=== PATIENT | female | born 1935 | race Caucasian/White ===

== ENCOUNTER 2020-07-26 11:31 | Emergency (ER) | payer MEDICARE, SELFPAY ==
--- NOTE | ~2020-07-26 | XR_ITS ---
XR hip RT 2V w AP pelvis DATE: 07/26/2020 12:45 INDICATION: Right hip pain with movement TECHNIQUE: AP pelvis. AP and lateral views of right hip COMPARISON: None FINDINGS: There is rotatory dextroscoliosis and severe degenerative disc disease of the lumbar and rupesh mbosacral spine. Moderate diffuse osteopenia. The pubic symphysis and sacroiliac joints are intact. No pelvic fracture or bone destruction is detec joseph. Hip joint spaces are symmetric and relatively preserved. No fracture, dislocation, avascular nec rosis or bone destruction of the right hip. Incidentally noted is a prominent amount fecal material in the colon. No bowel obstruction is evident . 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 UITMENT INTERN IMPRESSION: No pelvic or right hip fracture or dislocation Rotatory dextroscoliosis and severe degenerative disc disease of the lumbar spi ne
[2020-07-26 11:39] VITALS: BP 151/67; PULSE 60; RESP 18; TEMP 36.3; O2SAT 100
--- NOTE | 2020-07-26 13:04 | ED.GENADULT ---
HPI - General Adult General Chief complaint: Extremity Problem,Nontraumatic Stated complaint: right hip pain, no fall Time Seen by Provider: 07/26/20 12:26 Source: patient and family Limitations: no limitations History of Present Illness HPI narrative: Patient complaining of right buttock pain radiating to the back of the right leg. Started 1 week ago. Patient denies any trauma. Patient had history of lower back surgery. Was seen her orthopedic few weeks ago and was told that there is nothing he can offer because she have chronic degenerative joint disease. Patient been doing physical therapy once a week for the last 6 weeks. Patient been isolated at home since the beginning of the pandemic October 2019. Patient denies any fever, chills, nausea, vomiting, focal neuro deficit, urinary symptoms.. Related Data Home Medications Medication Instructions Recorded Confirmed calcium carbonate 600 mg calcium 600 mg PO DAILY 08/08/19 06/09/20 (1,500 mg) tablet multivitamin 1 tablet PO DAILY 08/08/19 06/09/20 omega-3 fatty acids 1,000 mg 1,000 mg PO BID 08/08/19 06/09/20 capsule omeprazole 20 mg capsule,delayed 20 mg PO DAILY 08/08/19 06/09/20 release timolol 0.5 % eye drops 1 drop EACH EYE Q12H 08/08/19 06/09/20 vitamin B complex 1 cap PO DAILY 08/08/19 06/09/20 vitamin E (dl, acetate) 400 unit 400 unit PO DAILY 08/08/19 06/09/20 capsule aspirin 81 mg tablet,delayed 81 mg PO DAILY 08/14/19 06/09/20 release cranberry 500 mg capsule 500 mg PO BID 08/14/19 06/09/20 latanoprost (PF) 0.005 % eye drops 1 drop EACH EYE DAILY 08/14/19 06/09/20 red yeast rice 600 mg tablet 600 mg PO DAILY 08/14/19 06/09/20 vit C 30 mg-s.quiros 250 mg-celery cap PO 08/14/19 06/09/20 seed 75 mg-grape seed extrt capsule Allergies Allergy/AdvReac Type Severity Reaction Status Date / Time gatifloxacin Allergy Severe SWELLING Verified 07/26/20 11:45 fexofenadine Allergy Mild COULDN'T Verified 07/26/20 11:45 SLEEP Sulfa (Sulfonamide Allergy Mild Unknown Verified 07/26/20 11:45 Antibiotics) Review of Systems Review of Systems: Narrative: CONSTITUTIONAL: Denies fever, chills, or sweats. EYES: Denies visual changes, redness, or discharge. ENT: Denies rhinorrhea, congestion, sore throat, or otalgia. CARDIOVASCULAR: Denies chest pain, palpitations, or edema. RESPIRATORY: Denies cough or dyspnea. GASTROINTESTINAL: Denies abdominal pain, nausea, vomiting, or diarrhea. GENITOURINARY: Denies dysuria or hematuria. SKIN: Denies rash or itching. MUSCULOSKELETAL: Mild tenderness at the center of the right buttock. NEUROLOGIC: Denies headache, numbness, or weakness. Patient was able to stand up with food service assistant and walk and steady steps with food service assistant. With some discomfort when she puts weight on the right lower extremity. PSYCHIATRIC: Denies anxiety or depression. [facility] Family History Family History Mother Patient's mother is Father Patient's father is Social History Social History Smoking status: Never smoker Second hand tobacco smoke exposure: No Alcohol intake: current Exam Narrative: Exam Narrative: General appearance: Well-developed, well-nourished Skin: Normal color Head: Normocephalic, nontraumatic Eyes: Clear conjunctiva ENT: Oropharynx normal, ears normal, nose normal Neck: Supple, nontender Chest and respiratory: Airway patent, no respiratory distress, no accessory muscle use Heart: Regular rate/rhythm Abdomen: Soft, nontender, no organomegaly, quiet bowel sounds Vascular: Normal peripheral pulses, normal capillary refill. Musculoskeletal: Mild tenderness right buttock, Neurologic: Alert and oriented ?3, DIRECTOR DERMATOLOGY is normal as tested, no gross motor deficit, positive right leg raising test
[2020-07-26] MEDS: MORPHINE SULFATE INJ (*CRX) 10 MG/ML AMP 4 MG IM (13:19)
[2020-07-26] MEDS: ONDANSETRON HCL ODT 4 MG TABLET PO (13:19)
[2020-07-26 13:25] VITALS: BP 138/79; PULSE 63; RESP 19; O2SAT 99
== END 2020-07-26 13:34 | disposition home or self-care (01) ==
PROVIDERS: Emergency Provider Emergency Medicine; PCP Internal Medicine
DX: M54.31 Sciatica, right side (principal); Z79.82 Long term (current) use of aspirin
CPT/HCPCS: 73502; 96372; 99283; A9270; J2270

== ENCOUNTER 2020-11-03 10:23 | Outpatient (CLI) | payer MEDICARE, SELFPAY ==
--- NOTE | ~2020-11-03 | XR_ITS ---
EXAMINATION: XR chest 2V DATE: 11/03/2020 10:38 INDICATION: Cough. TECHNIQUE: Frontal and lateral views of the chest were obtained. COMPARISON: Chest 2 views 10/26/2018, CT abdomen and pelvis 01/26/2019 FINDINGS: There is mild scarring at the lung apices. No pleural effusion or pneumothorax. The heart s ize is normal. There are changes of anterior fusion procedure in cervical spine. IMPRESSION: 1. Mild scarring at the lung apices. Reviewed, dictated and finalized at location A. OTECHNICIAN
== END 2020-11-03 10:24 | disposition home or self-care (01) ==
LOC: ANHIMG 10:27
PROVIDERS: PCP Internal Medicine; Visit Provider Physician Assistant
DX: R05 Cough (principal); R91.8 Other nonspecific abnormal finding of lung field
CPT/HCPCS: 71046

== ENCOUNTER 2021-02-15 13:30 | Outpatient (RCR) | payer MEDICARE, SELFPAY ==
--- NOTE | 2021-01-28 11:35 | STOPEVAL ---
Addendum entered by EVA Block 01/28/21 11:36: SPEECH THERAPY INITIAL EVALUATION: Thank you for referring Meredith España to [facility].? The patient is scheduled to be seen for therapy?1x/week for 4 weeks. Please review, sign, date and return this plan of care CHAU. Original Note: Thank you for referring Meredith España to [facility].? The patient is scheduled to be seen for therapy? ____x/week for ___ weeks. Please review, sign, date and return this plan of care CHAU. I agree with and certify that the following plan of care is medically necessary. Referring Physician Date Admitting Provider: Attending Provider: Jules Pompa MD Referring Provider: LISA Outpatient Evaluation Start: 01/26/21 13:30 Freq: Status: Active Protocol: Document 01/26/21 13:38 [email or web address] (Rec: 01/26/21 14:09 GRACIE [id number]) Therapy Assessment Status Assessment Status Assessment Status Evaluation Outpatient Past Medical History Past Medical History Source of Past Medical History Patient Cardiovascular History Hx Myocardial Infarction Yes: mild Gastrointestinal History Hx Gastroesophageal Reflux Disease Yes: takes meds Musculoskeletal History Hx Degenerative Disk Disease Yes Hx Spinal Surgery Yes: cervical surgery 2004- anterior approach Prior Level of Function Home Setting Home Type Assisted Living Facility Living Situation With Spouse Prior Swallow Level Prior Intake Method Oral Prior Diet Regular (Level 7 Diet) Prior Liquid Consistency Thin (Level 0 Diet) Pain Assessment Timing of Pain Assessment Timing of Pain Assessment Assessment Self Report Self Report Pain Level 0 Pain Score Pain Score 0: Self Report Bedside Swallow Evaluation Consistency Pureed Consistency Method of Presentation Spoon Behaviors Observed Apparently Normal Swallow Occurrence of Coughing None Vocal Quality After Swallowing Clear Swallow Palpation Results Good Swallow Initiation,Strong Laryngeal Elevation Thin Uncontrolled 1 Method of Presentation Cup Behaviors Observed Apparently Normal Swallow Occurrence of Coughing None Vocal Quality After Swallowing Clear Swallow Palpation Results Good Swallow Initiation,Strong Laryngeal Elevation Tolerance Tolerance For Swallow No Distress Alertness Awake/Safe Cooperativeness Calm,Cooperative Postural Control Moves Independently,Needs Assistance Fatigability Fatigues Easily Ability to Follow Directions Independent Recommendations Feeding Type Recommended Oral Positions Used
--- NOTE | 2021-02-15 16:17 | STOPEVAL ---
SPEECH THERAPY DISCHARGE: Thank you for referring Meredith España to [facility].? The patient was seen for 3 ST visits; she was given a HEP with which she reports performing; pt desires discharge at this time. Please review, sign, date and return this discharge CHAU. I agree with and certify that the following plan of care is medically necessary. Referring Physician Date Attending Provider: Jules Pompa MD Voice RE-Evaluation Voice History Voice History I had a headache for 2 days after our last session. Description of Daily Voice Use My is about the only person who doesn't hear me. I think my voice cuts out due to sinus drainage Intelligibility Single Word Production (% 100 Intelligibility) Sentence Level Speech (% Intelligibility 100 ) Conversational Level Speech (% 100 Intelligibility) Respiration Vowel Prolongation (seconds) 18 S:Z Ratio 1 Termination of Phrases/Sentences No Coincides with Termination of Exhalation Decrement In: Phonation No Decrement In: SQL REPORT DEVELOPER Closure No Decrement In: Articulation No Decrement In: Respiration No Phonation/Glottal Closure Cough Strong Throat Clearing Effective Hard Glottal Attack to Command Yes Vocal Hypertension on: Muscle Tension in No Neck or Face Vocal Hypertension: Strained Vocal No Quality or Hard Glottal Attack Pitch Pitch pitch is within functional limits Loudness Sustained ah in Seconds 18 Conversational Loudness (dB) 66.65 Ability to Alter Loudness in Various Yes Levels of Background Noise Ability to Use Contrastive Stress in Yes Phrases and Sentences Voice Quality Breathiness Mild Hoarseness None ST Clinical Summary Clinical Summary ST Clinical Summary Voice re-evaluation revealed increased volume and breath support. Speech intelligibility remained at 100%. Volume in conversational speech (measured at 66.65db) was found to be improved from initial evaluation & slightly above the norm of 65 and sustained breath support ( measured at 18 seconds) within the norm/average. At this time the pt desires discharge from speech th
== END 2021-04-12 11:50 | disposition home or self-care (01) ==
LOC: ANHST 13:30
PROVIDERS: PCP Internal Medicine; Visit Provider Otolaryngology
DX: R49.8 Other voice and resonance disorders (principal); J38.7 Other diseases of larynx; R49.0 Dysphonia
CPT/HCPCS: 92507; 92524; 92610

== ENCOUNTER 2021-04-20 11:25 | Emergency (ER) | payer MEDICARE, SELFPAY ==
--- NOTE | ~2021-04-20 | XR_ITS ---
EXAMINATION: XR chest 2V DATE: 04/20/2021 15:10 INDICATION: Cough. TECHNIQUE: Frontal and lateral views of the chest were obtained. COMPARISON: Chest 2 views 11/03/2020, CT abdomen and pelvis 01/26/2019 FINDINGS: There is mild atelectasis in the lower lung zones. No pleural effusion or pneumothorax. The heart size is normal. IMPRESSION: 1. Mild atelectasis in the lower lung zones. Reviewed, dictated and finalized at location A.
[2021-04-20 11:51] VITALS: BP 143/77; PULSE 71; RESP 18; TEMP 36.8; O2SAT 97
[2021-04-20 12:19] LABS: Basophils Percent Auto 0.4 % (0.2-1.2); Eosinophils Absolute Auto 0.2 K/mm3 (0-0.3); Eosinophils Percent Auto 2.6 % (0-4.4); Hemoglobin 11.8 g/dL (12.0-15.0); Immature Granulocyte Absolute 0.02 K/mm3 (0.00-0.031); Immature Granulocyte Percent A 0.3 % (0-0.5); Lymphocytes Absolute Auto 0.98 K/mm3 (0.9-3.2); Lymphocytes Percent Auto 13.6 % (18.3-44.2); Mean Corpuscular HGB Conc 32.8 g/dl (32-36); Mean Corpuscular Hemoglobin 33.5 pg (26-34); Mean Corpuscular Volume 102.3 fl (80-100); Mean Platelet Volume 10.2 fl (7.4-10.4); Monocytes Absolute Auto 0.9 K/mm3 (0.1-0.6); Monocytes Percent Auto 12.2 % (2.6-8.5); Neutrophils Absolute Auto 5.1 K/mm3 (1.3-6.7); Neutrophils Percent Auto 70.9 % (45.5-73.1); Platelet Count Result 259 k/mm3 (150-375); Red Blood Count 3.52 M/mm3 (4.2-5.4); White Blood Count 7.2 K/mm3 (4.5-10.0)
[2021-04-20 12:49] LABS: Alanine Aminotransferase 16 U/L (4-35); Albumin Level 3.8 g/dL (3.5-5.1); Alkaline Phosphatase 76 U/L (38-126); Anion Gap 3 mmol/L (8-16); Aspartate Amino Transferase 25 U/L (14-36); Bilirubin,Total 0.6 mg/dL (0.2-1.3); Blood Urea Nitrogen 28 mg/dL (7-17); Calcium 12.7 mg/dL (8.4-10.2); Carbon Dioxide 35 mmol/L (22-30); Chloride 102 mmol/L (98-107); Estimated Glomerular Filt Rate 36; Glucose 114 mg/dL (65-110); Potassium 3.9 mmol/L (3.4-5.0); Sodium 140 mmol/L (137-145)
[2021-04-20 13:27] LABS: Add Urine Microscopic? YES; Appearance Urine Cloudy (Clear); Bacteria Urine Trace /hpf; Bilirubin Urine Negative (Negative); Blood Urine Negative (Negative); Color Urine Yellow (Yellow); Glucose Urine UA Negative (Negative); Ketones Urine Negative (Negative); Leukocyte Esterase Ur Negative LEU/UL (Negative); Nitrate Urine Negative (Negative); Protein Urine Negative (Negative); RBC Urine 0-2 /hpf (0-2); Specific Grav Ur 1.009 (1.001-1.035); Urobilinogen Urine Negative mg/dL (<2.0)
[2021-04-20 14:50] VITALS: BP 164/66; PULSE 86; RESP 20; TEMP 36.8; O2SAT 98
--- NOTE | 2021-04-20 14:50 | ED.WEAKNESS ---
HPI - Weakness General Chief complaint: Weakness Stated complaint: weakness Time Seen by Provider: 04/20/21 14:41 History of Present Illness HPI Narrative: Patient presents with generalized weakness. Reports it has been worsening over the past 3 days. Reports he feels weak all over with mild diffuse body aches and decreased appetite. She also reports a cough over the past week. She denies fever she denies urinary symptoms denies nausea vomiting or diarrhea Related Data Home Medications Medication Instructions Recorded Confirmed calcium carbonate 600 mg calcium 600 mg PO DAILY 08/08/19 03/04/21 (1,500 mg) tablet multivitamin 1 tablet PO DAILY 08/08/19 03/04/21 omega-3 fatty acids 1,000 mg 1,000 mg PO BID 08/08/19 03/04/21 capsule timolol 0.5 % eye drops 1 drop EACH EYE Q12H 08/08/19 03/04/21 vitamin B complex 1 cap PO DAILY 08/08/19 03/04/21 vitamin E (dl, acetate) 180 mg 400 unit PO DAILY 08/08/19 03/04/21 (400 unit) capsule aspirin 81 mg tablet,delayed 81 mg PO DAILY 08/14/19 03/04/21 release cranberry 500 mg capsule 500 mg PO BID 08/14/19 03/04/21 red yeast rice 600 mg tablet 600 mg PO DAILY 08/14/19 03/04/21 vit C 30 mg-s.quiros 250 mg-celery cap PO 08/14/19 03/04/21 seed 75 mg-grape seed extrt capsule timolol 0.5 % eye drops 1 drp EACH EYE Q12H 01/27/21 03/04/21 Allergies Allergy/AdvReac Type Severity Reaction Status Date / Time gatifloxacin Allergy Severe SWELLING Verified 03/02/21 13:29 fexofenadine Allergy Mild COULDN'T Verified 03/02/21 13:29 SLEEP Sulfa (Sulfonamide Allergy Mild Unknown Verified 03/02/21 13:29 Antibiotics) Review of Systems Review of Systems: CONSTITUTIONAL: Denies fever, chills, or sweats. EYES: Denies visual changes, redness, or discharge. ENT: Denies rhinorrhea, congestion, sore throat, or otalgia. CARDIOVASCULAR: Denies chest pain, palpitations, or edema. RESPIRATORY: Denies cough or dyspnea. GASTROINTESTINAL: Denies abdominal pain, nausea, vomiting, or diarrhea. GENITOURINARY: Denies dysuria or hematuria. SKIN: Denies rash or itching. MUSCULOSKELETAL: Denies back pain, focal joint pain. NEUROLOGIC: Denies headache, numbness, dizziness, or weakness. PSYCHIATRIC: Denies anxiety or depression. All systems reviewed & are unremarkable except as noted in HPI and below PMFSH Family History Family History Mother Patient's mother is Father Patient's father is Social History Social History Smoking status: Never smoker Second hand tobacco smoke exposure: No Alcohol intake: current Substance use: never Substance use type: does not use Exam Narrative: GENERAL: Well-appearing, well-nourished, and in no acute distress. HEAD: Normocephalic, atraumatic. EYES: PERRLA and EOMI. ENT: Nares clear, no rhinorrhea or epistaxis. Mucous membranes moist. NECK: Supple. No masses. CHEST: Clear to auscultation. No respiratory distress. No wheezes rales or rhonchi HEART: Regular rate and rhythm. No murmur heard. Normal peripheral pulses. ABDOMEN: Soft, nontender, nondistended, normal active bowel sounds. EXTREMITIES: Normal range of motion. No edema. SKIN: Warm, dry, no rash. NEURO: No focal deficits, 5 out of 5 strength in all extremities sensation intact to light touch in all extremities cranial nerves II through XII are intact. Alert and oriented x3. PSYCH: Normal mood and affect. Course Reevaluation(s) Reevaluation #1: Patietn ambulated to the ER with assistance, improved mobility since initial evaluation. dicussed work up and plan with patient/family, family comfortable with the outpatient plan. Date: 04/20/21 Time: 18:05 Vital Signs Vital signs: Vital Signs Temperature 36.8 C 04/20/21 11:51 Pulse Rate 71 04/20/21 11:51 Respiratory Rate 18 04/20/21 11:51 Blood Pressure 143/77 H 04/20/21 11:51 Pulse
[2021-04-20 14:52] VITALS: PULSE 85
[2021-04-20] MEDS: SODIUM CHLORIDE 0.9% IV 1,000 ML 999 ML IV CONT (14:56)
--- NOTE | 2021-04-20 16:06 | ECG_ITS ---
Measurements Intervals [place] Rate: 89 P: 75 RI: 193 QRS: 4 QRSD: 86 T: 96 QT: 376 QTc: 458 Interpretive Statements SINUS RHYTHM VENTRICULAR PREMATURE COMPLEX POSSIBLE LEFT ATRIAL ENLARGEMENT ANTEROSEPTAL INFARCT, AGE INDETERMINATE BASELINE ARTIFACT- I, II, III, AVR, AVL, AVF, V1-V6 ABNORMAL ECG Electronically Signed On 04-20-2021 17:27:48 CDT by Kam Villareal D.O.
[2021-04-20 16:36] LABS: Troponin I < 0.012 ng/mL (0.000-0.034)
[2021-04-20 17:15] VITALS: BP 159/94; PULSE 86; RESP 19; O2SAT 98
--- NOTE | 2021-04-20 18:06 | PC.NURSE ---
Patient walking down caba with walker at this time to bathroom with assistance.
[2021-04-20 18:41] VITALS: BP 157/68; PULSE 90; RESP 18; O2SAT 98
== END 2021-04-20 18:44 | disposition home or self-care (01) ==
PROVIDERS: General Practice; Emergency Provider Emergency Medicine; PCP Internal Medicine
DX: E86.0 Dehydration (principal); R53.1 Weakness; Z79.82 Long term (current) use of aspirin
CPT/HCPCS: 36415; 71046; 80053; 81001; 84484; 85025; 93005; 96360; 99284; J7030

== ENCOUNTER 2021-05-19 08:41 | Observation (INO) | payer MEDICARE, SELFPAY ==
[2021-05-19] VITALS (14 sets, daily range): BP systolic 106–176; BP diastolic 53–93; PULSE 75–87; RESP 16–18; TEMP 36.5–37.1; O2SAT 94–100
--- NOTE | ~2021-05-19 | NM_ITS ---
EXAMINATION: NM renal flow and function DATE: 05/21/2021 09:35 INDICATION: Acute kidney injury. TECHNIQUE: 9 mCi Tc-99m MAG3 was administered IV. The patient was scanned in the supine position. A posterior abdominal radionuclide angiogram was obtained. A subsequent time course of static images of the kidneys, ureters, and bladder was obtained. COMPARISON: Ultrasound kidneys 05/19/2021 FINDINGS: The posterior abdominal radionuclide angiogram and sequential static images show normal siz e, position, and morphology of the kidneys. Peak renal parenchymal uptake was 3 min in right kidney a nd 3 min in left kidney (normal peak 3-5 minutes). The relative early renal uptake was 43% on the ri ght and 57% on the left (<40% is abnormal). No abnormalities of the ureters or bladder are seen. T1/2 for clearance of activity from the right kidney and proximal collecting system was >>20 minutes. T1/2 for clearance of activity from the left kidney and proximal collecting system was >>20 minutes. IMPRESSION: 1. Symmetric kidney function. 2. Delayed contrast clearance from the kidneys, consistent with decreased kidney function. Reviewed, dictated and finalized at location A. IMPRESSION: 1. Symmetric kidney function. 2. Delayed contrast clearance from the kidneys, consistent with decreased kidn ey function.
--- NOTE | ~2021-05-19 | XR_ITS ---
EXAMINATION: XR chest 1V portable EXAM DATE: 05/19/2021 10:09 INDICATION: Fall. TECHNIQUE: Portable AP frontal chest x-ray was obtained. Comparison is made to prior examination from 04/20/2021. FINDINGS: The lungs are clear. There are no pleural effusions. Cardiac silhouette is prominent but magnified on this AP technique. There is no pneumothorax suspected. There is aortic arterioscleros is. Advanced thoracolumbar spondylosis. Cervical fusion hardware. No displaced rib fracture identifi ed. IMPRESSION: No acute cardiopulmonary findings. Reviewed, dictated and finalized at location B.
--- NOTE | ~2021-05-19 | CT_ITS ---
EXAMINATION: CT brain wo con DATE: 05/19/2021 10:16 INDICATION: Status post fall. Headache. TECHNIQUE: Computed tomography (CT) of the abdomen and pelvis was performed without intravenous contr ast. The dose-length product was 605.33 mGy-cm. The mA was adjusted according to patient size. Iterat jose reconstruction technique was employed. COMPARISON: None. FINDINGS: Mild generalized atrophy. There are scattered moderate periventricular and subcortical whit e matter changes, most likely related to small vessel ischemic disease (microangiopathy). No acute in tracranial hemorrhage, infarction, mass or mass effect. Basilar cisterns are patent. No acute intracr anial hemorrhage, infarction, mass or mass effect. There is complete opacification of the maxillary s inuses. There is mucosal thickening of the ethmoid and frontal sinuses with mucoperiosteal reaction. Mastoids are pneumatized. No depressed skull fractures. IMPRESSION: 1. No acute intracranial abnormality. 2: Chronic sinusitis. 3: Chronic age-related findings. Reviewed, dictated and finalized at location A.
--- NOTE | ~2021-05-19 | US_ITS ---
EXAMINATION: US renal BI EXAM DATE: 05/19/2021 16:32 INDICATION: Worsening renal function . TECHNIQUE: Multiple grayscale and Doppler images of the kidneys were obtained (by a technologist who performed the scan) and subsequently reviewed. Correlation is made to CT abdomen pelvis 01/26/2019. FINDINGS: Right kidney: There is normal contour and echogenicity. It measures 8.0 x 3.6 x 3.8 centimeters. Th ere are no focal renal lesions identified. There is no hydronephrosis. Left kidney: There is normal contour and echogenicity. It measures 8.8 x 3.9 x 4.2 centimeters. The re are no focal renal lesions identified. There is no hydronephrosis. Bladder unremarkable. IMPRESSION: 1. Sonographically unremarkable kidneys. Reviewed, dictated and finalized at location B.
--- NOTE | ~2021-05-19 | XR_ITS ---
EXAMINATION: XR bone survey comp/metastic EXAM DATE: 05/21/2021 13:28 INDICATION: Hypercalcemia . TECHNIQUE: Frontal and lateral projections of following regions obtained; right humerus, left humeru s, right forearm, left forearm, right femur, left femur, right tibia, left tibia, lumbar spine, thora cic spine, cervical spine. Lateral projection skull. Frontal chest x-ray. FINDINGS: There are no osteoblastic or osteolytic lesions identified. Good apparent bone density for patient's age. Cervical corpectomy, fusion hardware. Advanced thoracolumbar spondylosis. Bilateral k nee arthroplasty hardware. Chondral cartilage calcification. Moderate lumbar dextroscoliosis. IMPRESSION: No osteoblastic or osteolytic disease. Reviewed, dictated and finalized at location B.
--- NOTE | ~2021-05-19 | CT_ITS ---
EXAMINATION: CT lumbar spine wo [facility] EXAM DATE: 05/19/2021 10:17 INDICATION: Fall, low back pain. Onset of tremors, loss of balance. TECHNIQUE: Spiral CT of the lumbar spine was performed without contrast. Axial, coronal and sagittal images lumbar spine were reviewed. The dose-length product (DLP) for this examination was 1010.81 m Gy-cm. The exposure was tailored according to patient size (auto mA exposure control), and iterativ e reconstruction (ASIR) was used as additional dose reduction technique. There is no prior study for comparison. FINDINGS: There are no acute fractures identified. There is severe disc disease from T12 through S1. There is 2 mm retrolisthesis L1 on L2, 3 mm retrolisthesis L2 on L3, 2 mm retrolisthesis L3 on L4. Sa nikunj, sacroiliac joints are intact. No spondylolysis. There is moderate lumbar dextroscoliosis. There are no osteoblastic or osteolytic lesions identified. Subcentimeter left renal exophytic hemorrhagi c cyst. Moderate abdominal aortic arteriosclerosis. Level by level evaluation: T12-L1: There is a mild to moderate diffuse disc bulge. Facet arthropathy: Moderate. Neural foraminal stenosis: Mild to moderate right. Central canal stenosis: Mild. L1-L2: There is a mild to moderate diffuse disc bulge. Facet arthropathy: Mild to moderate. Neural foraminal stenosis: Moderate left, mild to moderate right. Central canal stenosis: Mild to moderate. L2-L3: There is a moderate diffuse disc bulge. Facet arthropathy: Moderate. Neural foraminal stenosis: Severe left, mild right. Central canal stenosis: Mild, right hemilaminectomy.. L3-L4: There is a moderate diffuse disc bulge. Facet arthropathy: Moderate, but partially fused. Neural foraminal stenosis: Moderate left, mild to moderate right. Central canal stenosis: Mild, left hemilaminectomy. L4-L5: There is a large diffuse disc bulge. Facet arthropathy: Severe, but partially fused. Neural foraminal stenosis: Severe right, moderate left. Central canal stenosis: Severe. L5-S1: There is a moderate diffuse disc bulge. Facet arthropathy: Severe. Neural foraminal stenosis: Moderate to severe left, moderate right. Central canal stenosis: Moderate. IMPRESSION: 1. L4-5 severe central canal and right neural foraminal stenosis. 2. L2-3 severe left neural foraminal stenosis. 3. Moderate dextroscoliosis. 4. Advanced spondylosis as detailed above. 5. No acute findings. Reviewed, dictated and finalized at location B.
--- NOTE | ~2021-05-19 | NM_ITS ---
EXAMINATION: NM bone scan whole body DATE: 05/24/2021 14:08 INDICATION: Hypercalcemia TECHNIQUE: 23.2 mCi Tc-99m HDP was administered intravenously. Delayed whole-body scintigrams were o btained. COMPARISON: Skeletal survey dated 05/21/[address] dated 05/19/2021. FINDINGS: Photopenic defects at the bilateral knees correspond to total knee arthroplasties . Increased uptake surrounding additional photopenic defect at the mid to lower cervical spine corresponding to C4 and C 5 corpectomies with anterior spinal fusion and large interbody device extending between C3 and C6. Henna mbar dextroscoliosis. Moderate increased uptake extending along the T12-L1 disc space where there is severe degenerative disc disease with Modic type III sclerotic endplate changes on prior CT. Mild asy mmetry to the uptake at the ischial tuberosities which is slightly more prominent on the right which may be related to patient positioning as no evident correlate is identified at this location on the r adiographs or CT images. There is relatively symmetric increased uptake along the margin of the paran gregory sinuses likely related to sinus disease. Small focus of soft tissue activity at the right antecu bital fossa near the site of injection likely representing lymphatic uptake of extravasated activity. No other suspicious foci of abnormal bone uptake to suggest metastatic disease. IMPRESSION: 1. No bone lesions suspicious for primary malignancy or metastatic disease. Reviewed, dictated and finalized at location A.
[2021-05-19 09:33] LABS: Basophils Percent Auto 0.4 % (0.2-1.2); Eosinophils Absolute Auto 0.2 K/mm3 (0-0.3); Eosinophils Percent Auto 2.9 % (0-4.4); Hematocrit 34.8 % (37.0-47.0); Hemoglobin 11.7 g/dL (12.0-15.0); Immature Granulocyte Absolute 0.03 K/mm3 (0.00-0.031); Immature Granulocyte Percent A 0.4 % (0-0.5); Lymphocytes Absolute Auto 0.94 K/mm3 (0.9-3.2); Lymphocytes Percent Auto 11.3 % (18.3-44.2); Mean Corpuscular HGB Conc 33.6 g/dl (32-36); Mean Corpuscular Hemoglobin 34.1 pg (26-34); Mean Corpuscular Volume 101.5 fl (80-100); Mean Platelet Volume 10.2 fl (7.4-10.4); Monocytes Absolute Auto 0.9 K/mm3 (0.1-0.6); Monocytes Percent Auto 10.2 % (2.6-8.5); Neutrophils Absolute Auto 6.2 K/mm3 (1.3-6.7); Neutrophils Percent Auto 74.8 % (45.5-73.1); Platelet Count Result 217 k/mm3 (150-375); Red Blood Count 3.43 M/mm3 (4.2-5.4); Red Cell Distribution Width 12.5 % (11.5-14.5); White Blood Count 8.3 K/mm3 (4.5-10.0)
[2021-05-19 09:47] LABS: Alanine Aminotransferase 19 U/L (4-35); Albumin Level 3.7 g/dL (3.5-5.1); Alkaline Phosphatase 66 U/L (38-126); Anion Gap 6 mmol/L (8-16); Aspartate Amino Transferase 28 U/L (14-36); Bilirubin,Total 0.4 mg/dL (0.2-1.3); Blood Urea Nitrogen 22 mg/dL (7-17); Calcium 12.4 mg/dL (8.4-10.2); Carbon Dioxide 33 mmol/L (22-30); Chloride 101 mmol/L (98-107); Estimated Glomerular Filt Rate 29; Glucose 114 mg/dL (65-110); Potassium 3.9 mmol/L (3.4-5.0); Sodium 140 mmol/L (137-145)
--- NOTE | 2021-05-19 09:56 | ECG_ITS ---
Measurements Intervals [place] Rate: 82 P: 49 GA: 203 QRS: -16 QRSD: 85 T: 41 QT: 346 QTc: 405 Interpretive Statements SINUS RHYTHM VENTRICULAR PREMATURE COMPLEX POSSIBLE LEFT ATRIAL ENLARGEMENT CANNOT RULE OUT SEPTAL INFARCT, AGE INDETERMINATE BASELINE ARTIFACT- I, II, III, AVR, AVL, AVF, V1-V5 ABNORMAL ECG Electronically Signed On 05-19-2021 16:06:14 CDT by Kam Villareal D.O.
--- NOTE | 2021-05-19 10:07 | PC.NURSE ---
pt out of dept for imaging
--- NOTE | 2021-05-19 10:18 | ED.GENADULT ---
HPI - General Adult General Chief complaint: Weakness <VASHTI Rascon Last Filed: 05/19/21 12:56> Stated complaint: weakness <VASHTI Rascon Last Filed: 05/19/21 12:56> Time Seen by Provider: 05/19/21 09:15 <VASHTI Rascon Last Filed: 05/19/21 12:56> Source: patient, family and RN notes reviewed <VASHTI Rascon Last Filed: 05/19/21 12:56> Mode of arrival: ambulatory <VASHTI Rascon Last Filed: 05/19/21 12:56> Limitations: no limitations <VASHTI Rascon Last Filed: 05/19/21 12:56> History of Present Illness HPI narrative: Patient is a 86-year-old female who presents from home with family for evaluation of worsening weakness which has been present for 2 to 3 weeks she has sustained multiple falls the last of which was Monday when she fell patient has had days where she has fallen multiple times and has traditionally been using a walker to get around but now has had to use a wheelchair today she was so weak that the home health could not get her up patient denies chest pain shortness of breath vomiting diarrhea. On arrival patient denying any pain. She notes that she has struck her head and these falls and also injured her low back on Monday when she fell. Patient denies radicular symptoms. Patient lives at home by herself with her having recently . <VASHTI Rascon Last Filed: 05/19/21 12:56> Related Data Home medications: Home Medications Medication Instructions Recorded Confirmed calcium carbonate 600 mg calcium 600 mg PO DAILY 08/08/19 03/04/21 (1,500 mg) tablet multivitamin 1 tablet PO DAILY 08/08/19 03/04/21 omega-3 fatty acids 1,000 mg 1,000 mg PO BID 08/08/19 03/04/21 capsule timolol 0.5 % eye drops 1 drop EACH EYE Q12H 08/08/19 03/04/21 vitamin B complex 1 cap PO DAILY 08/08/19 03/04/21 vitamin E (dl, acetate) 180 mg 400 unit PO DAILY 08/08/19 03/04/21 (400 unit) capsule aspirin 81 mg tablet,delayed 81 mg PO DAILY 08/14/19 03/04/21 release cranberry 500 mg capsule 500 mg PO BID 08/14/19 03/04/21 red yeast rice 600 mg tablet 600 mg PO DAILY 08/14/19 03/04/21 vit C 30 mg-s.quiros 250 mg-celery cap PO 08/14/19 03/04/21 seed 75 mg-grape seed extrt capsule timolol 0.5 % eye drops 1 drp EACH EYE Q12H 01/27/21 03/04/21 <Sage Martinez PA-C - Last Filed: 05/19/21 12:56> Allergies/adverse reactions: Allergies Allergy/AdvReac Type Severity Reaction Status Date / Time gatifloxacin Allergy Severe SWELLING Verified 03/02/21 13:29 fexofenadine Allergy Mild COULDN'T Verified 03/02/21 13:29 SLEEP Sulfa (Sulfonamide Allergy Mild Unknown Verified 03/02/21 13:29 Antibiotics) <Sage Martinez PA-C - Last Filed: 05/19/21 12:56> Review of Systems Review of Systems: All systems reviewed & are unremarkable except as noted in HPI and below <Sage Martinez PA-C - Last Filed: 05/19/21 12:56> [facility] Past Medical History Medical History: Medical History (Updated 05/19/21 @ 15:08 by Meghan Rodrigues PA-C) Anxiety Arthritis Axonal polyneuropathy Su's esophagus Brown-Sequard syndrome Chronic kidney disease, stage 3 Gastric ulcer Gastroesophageal reflux disease Glaucoma History of deep venous thrombosis Hypothyroidism Meningioma Pure hypercholesterolemia Tremor Urinary incontinence <Sage Martinez PA-C - Last Filed: 05/19/21 12:56> Surgical History Surgical History: Surgical History (Updated 05/19/21 @ 14:48 by Meghan Rodrigues PA-C) History of arthroplasty of left knee (10/05/16) History of arthroplasty of right knee (12/16/15) History of cataract extraction with lens replacement History of colonoscopy with polypectomy History of fusion of cervical spine History of hysterectomy for benign disease History of repair of hiatal hernia <Sage Martinez PA-C - Last Filed: 05/19/21 12:56> Family History Family History:
[2021-05-19] MEDS: SODIUM CHLORIDE 0.9% IV 1,000 ML 999 ML IV CONT (10:37)
[2021-05-19 10:53] LABS: Add Urine Microscopic? YES; Appearance Urine Cloudy (Clear); Bacteria Urine Trace /hpf; Bilirubin Urine Negative (Negative); Blood Urine 1+ (Negative); Color Urine Yellow (Yellow); Glucose Urine UA Negative (Negative); Ketones Urine Negative (Negative); Leukocyte Esterase Ur 3+ LEU/UL (Negative); Mucus Urine Rare /lpf; Nitrate Urine Positive (Negative); Protein Urine Negative (Negative); Specific Grav Ur 1.008 (1.001-1.035); Squamous Epithelial Cell Urine Occasional /hpf (Few); Urobilinogen Urine Negative mg/dL (<2.0); WBC Urine >75 /hpf
[2021-05-19 11:01] LABS: Troponin I 0.012 ng/mL (0.000-0.034)
[2021-05-19 11:02] LABS: Lipase 139 U/L (23-300)
[2021-05-19 11:30] LABS: INR 1.2
--- NOTE | 2021-05-19 13:30 | PM.IMHP ---
H&P: HPI History of Present Illness Date/Time: 05/19/21 13:30 Chief Complaint: Weakness. Narrative: This is an 86-year-old female with history of DVT on anticoagulation, hypothyroidism, high cholesterol, anxiety, and GERD who presented to the emergency department today for evaluation of weakness. She has gotten progressively more weak over the last 2 to 3 weeks after the of her of nearly 68 years. She has had several falls in the last couple of weeks, the last being on Monday where she did hit her head although she denies loss of consciousness with that. Due to the fall she has been staying in her wheelchair more often in using her walker less than last. She admits that she has not been eating or drinking very much due to poor appetite while grieving her 's passing. Due to her increasing weakness she was brought in today for evaluation where she was found to be dehydrated with evidence of urinary tract infection as well as hypercalcemia. At the time my evaluation she is requesting some water and Jell-O but really does not have much of a desire to eat anything else. She has not had any significant nausea or vomiting but does report some loose stools. She has not been drinking much in the way of water but does report drinking 1 big glass of wine a night to help her fall asleep. She has had some mild dysuria and frequency. Review of Systems Review of Systems: Twelve systems were reviewed pertinent positives and negatives as per HPI. No fever, chills, or sweats. No cold or flu symptoms. No sick contacts or known exposure to COVID-19. Currently being treated for left hip bursitis and she is due for an injection in the coming. No dark stools. She has no history of malignancy. No history of hyperparathyroidism. No bone pain or confusion. No history of kidney stones. Except as documented, all other systems were reviewed and are negative. [facility] Past Medical History Medical History Anxiety Arthritis Axonal polyneuropathy Su's esophagus Brown-Sequard syndrome Chronic kidney disease, stage 3 Gastric ulcer Gastroesophageal reflux disease Glaucoma History of deep venous thrombosis Hypothyroidism Meningioma Pure hypercholesterolemia Tremor Urinary incontinence Surgical History Surgical History History of arthroplasty of left knee (10/05/16) History of arthroplasty of right knee (12/16/15) History of cataract extraction with lens replacement History of colonoscopy with polypectomy History of fusion of cervical spine History of hysterectomy for benign disease History of repair of hiatal hernia Family History Family History Mother Cerebrovascular accident Coronary artery disease Diabetes mellitus Father Patient's father is Social History Social History (Updated 05/20/21 @ 02:15 by Meghan Rodrigues PA-C) Social History: The patient lives in assisted living at [facility]. Her of nearly 68 years past in March 2021. Lifelong nonsmoker. She drinks 1 glass of wine a night. No illicit substance use. She has 2 daughters who she designates as her surrogate decision makers. Code status: Full code. Meds Home Medications and Allergies Home Medications Medication Instructions Recorded Confirmed Type calcium carbonate 600 mg calcium 600 mg PO DAILY 08/08/19 05/19/21 History (1,500 mg) tablet multivitamin 1 tablet PO DAILY 08/08/19 05/19/21 History omega-3 fatty acids 1,000 mg 1,000 mg PO BID 08/08/19 05/19/21 History capsule vitamin B complex 1 cap PO DAILY 08/08/19 05/19/21 History vitamin E (dl, acetate) 180 mg 400 unit PO DAILY 08/08/19 05/19/21 History (400 unit) capsule aspirin 81 mg tablet,delayed 81 mg PO DAILY 08/14/19 05/19/21 History release cranberry 500 mg capsule 500 mg P
[2021-05-19 13:31] LABS: Troponin I < 0.012 ng/mL (0.000-0.034)
--- NOTE | 2021-05-19 14:59 | PCOTNOTE ---
Attempted to see, pt. has not yet arrived in room from ED
--- NOTE | 2021-05-19 16:57 | ADMGEN ---
This patient, Meredith España, was admitted to 3 [facility] Surg Room 307-68 [id number]. Patient/family oriented to hospital policies and general routines including ID bracelet, bed and alarms, visiting hours, pain management, procedures, bathroom and other care routines, personal items, smoking policy, room service/diet, and visiting hours. Information on how to activate the Rapid Response Team has been discussed. Patient/Family are encouraged to report perceived risks to care and to ask questions if they do not understand what they are told or what they should do.
--- NOTE | 2021-05-19 17:30 | PM.CNNEP ---
Assessment and Plan Assessment and plan (1) Chronic kidney disease, stage 3: Code(s): N18.30 - Chronic kidney disease, stage 3 unspecified Status: Acute Assessment and Plan: The patient has a mild reduction in GFR at baseline. It is unclear if this is really CKD stage IIIA or not. Sometimes the formula converting creatinine to GFR is not as reliable in someone who has 86 years old. She does not have hypertension or diabetes to blame this on. (2) Acute worsening of stage 3 chronic kidney disease: Code(s): N18.30 - Chronic kidney disease, stage 3 unspecified Status: Acute Assessment and Plan: The patient does have an elevated creatinine. This was mildly elevated in March and now is higher. Sounds like she has had some process which is been going on for the last couple or 3 months. She has hypercalcemia which can sometimes lead to dehydration because high calcium inhibits ROMK which is similar to somebody being on furosemide. In addition to this the patient has had some diarrhea so she is probably dehydrated and IV fluids would benefit. Her chest x-ray is okay so I think it is okay to proceed with this. She was not on any antibiotics her other new medications to blame this on. She could have a glomerulonephritis. Will check urinalysis and serology. She could have some infiltrative disease like multiple myeloma which would also explain the hypercalcemia. Obstruction is a possibility as well. Renal ultrasound will elucidate this. At this point will get urine electrolytes and a renal ultrasound and give her IV fluids. (3) Hypercalcemia: Code(s): E83.52 - Hypercalcemia Status: Acute Assessment and Plan: Patient has a high calcium. she could be dehydrated with her diarrhea. She is also taking calcium supplements. she could have hyperparathyroidism or some infiltrative issues such as multiple myeloma, or Paget's disease of the bone. Will check a urine calcium to creatinine ratio to see if this is the kidneys absorbing calcium or if this is excess production of calcium. Will also check vitamin-D levels, Oh levels, and also vitamin-A. If the PTH is low, then consider a bone scan if the calcium stays high. Will give her some calcitonin as well. (4) Urinary tract infection: Code(s): N39.0 - Urinary tract infection, site not specified Status: Acute Assessment and Plan: The patient has pyuria. Urine culture is pending. She is getting antibiotics. (5) Pure hypercholesterolemia: Code(s): E78.00 - Pure hypercholesterolemia, unspecified Status: Chronic Assessment and Plan: She is on simvastatin (6) Gastroesophageal reflux disease: Code(s): K21.9 - Gastro-esophageal reflux disease without esophagitis Status: Acute Assessment and Plan: She is on omeprazole History of Present Illness Reason for Consult Consult date: 05/19/21 Chief Complaint Chief complaint: urinary tract infection,dehyration History of Present Illness Narrative: Meredith is a very pleasant 86-year-old lady who has multiple medical problems including chronic kidney disease stage 3, hyperlipidemia, hypothyroidism, glaucoma, gastric ulcer, brown sick card syndrome, Su's esophagus, anxiety, arthritis, tremor, meningioma and a history of DVT. The patient says that over the last few weeks the patient is had progressive weakness. She fell a few times. Lately she fell and struck her head. She has had back pain since then. The patient says that she also had some diarrhea. Patient was evaluated in the ER and found to have a very high calcium and elevated creatinine so renal consultation was requested. The patient normally has a creatinine of around 1 with a estimated GFR of 53. So she was labeled with CKD stage IIIA. On the the patient had some blood work done which showed a creatinine of 1.4 and a GFR of 36 with a calcium of 12.7. In the ER today h
[2021-05-19 18:40] LABS: Magnesium 2.1 mg/dL (1.6-2.3); Phosphorus 3.6 mg/dL (2.5-4.5)
[2021-05-19 18:41] LABS: Creatine Kinase 382 U/L (30-135)
[2021-05-19 18:48] LABS: Transferrin 182 mg/dL (206-381)
[2021-05-19 18:52] LABS: Parathyroid Intact 8.3 pg/mL (7.5-53.5)
[2021-05-19] MEDS: SODIUM CHLORIDE 0.9% IV 1,000 ML 75 ML IV CONT (18:58)
[2021-05-19 19:17] LABS: Iron 85 ug/dL (37-170)
[2021-05-19 19:26] LABS: Percent Iron Saturation 33 % (20-50)
[2021-05-19 19:52] LABS: Folic Acid > 20.0 ng/mL (2.76->20)
[2021-05-19 20:11] LABS: Vitamin D 25 Hydroxy 74.6 ng/mL
[2021-05-19 21:18] LABS: Complement C3 99 mg/dL (88-165)
[2021-05-19 21:22] LABS: Erythrocyte Sedimentation Rate 60 mm/hr (0-20)
[2021-05-20] VITALS (13 sets, daily range): BP systolic 133–169; BP diastolic 66–70; PULSE 68–100; RESP 14–20; TEMP 36.1–37.3; O2SAT 93–98; BMI 10.0
[2021-05-20 06:03] LABS: Hematocrit 33.3 % (37.0-47.0); Mean Corpuscular Hemoglobin 34.3 pg (26-34); Mean Corpuscular Volume 103.7 fl (80-100); Mean Platelet Volume 10.5 fl (7.4-10.4); Platelet Count Result 198 k/mm3 (150-375); Red Blood Count 3.21 M/mm3 (4.2-5.4); Red Cell Distribution Width 12.6 % (11.5-14.5); White Blood Count 6.5 K/mm3 (4.5-10.0)
[2021-05-20 06:12] LABS: Alanine Aminotransferase 19 U/L (4-35); Albumin Level 3.3 g/dL (3.5-5.1); Alkaline Phosphatase 59 U/L (38-126); Anion Gap 4 mmol/L (8-16); Aspartate Amino Transferase 34 U/L (14-36); Bilirubin,Total 0.4 mg/dL (0.2-1.3); Blood Urea Nitrogen 18 mg/dL (7-17); Calcium 10.9 mg/dL (8.4-10.2); Carbon Dioxide 29 mmol/L (22-30); Chloride 107 mmol/L (98-107); Estimated Glomerular Filt Rate 36; Glucose 92 mg/dL (65-110); Potassium 3.5 mmol/L (3.4-5.0); Sodium 140 mmol/L (137-145)
[2021-05-20] MEDS: LEVOTHYROXINE SODIUM 88 MCG TABLET PO (06:40)
[2021-05-20] MEDS: FLUTICASONE/SALMETEROL 115-21 MCG INHALER 1 PUFF 2 PUFF INHALATION ×2 (08:17→21:00)
[2021-05-20] MEDS: TIMOLOL MALEATE 0.5% OP SOLN 5 ML BOTTLE 1 DROP EACH EYE ×2 (09:30→20:15)
[2021-05-20] MEDS: ASPIRIN 81 MG ENTERIC TABLET PO (09:31)
[2021-05-20] MEDS: PANTOPRAZOLE 40 MG TABLET PO (09:31)
--- NOTE | 2021-05-20 10:17 | PM.PNNEP ---
Progress Note: A&P Assessment and Plan (1) Chronic kidney disease, stage 3: Code(s): N18.30 - Chronic kidney disease, stage 3 unspecified Status: Acute Assessment and Plan: The patient has a mild reduction in GFR at baseline. It is unclear if this is really CKD stage IIIA or not. Sometimes the formula converting creatinine to GFR is not as reliable in someone who has 86 years old. She does not have hypertension or diabetes to blame this on. (2) Acute worsening of stage 3 chronic kidney disease: Code(s): N18.30 - Chronic kidney disease, stage 3 unspecified Status: Acute Assessment and Plan: The patient does have an elevated creatinine. Renal ultrasound is unremarkable. Urinalysis shows a bladder infection. Urine electrolytes are not done yet. CPK is mildly high but not enough to affect her kidneys. Most likely her decreased kidney function is from dehydration. She has poor intake at home, some diarrhea, and also the high calcium was causing a Lasix effect. IV fluids has improved her kidney function. We will continue this. (3) Hypercalcemia: Code(s): E83.52 - Hypercalcemia Status: Acute Assessment and Plan: Patient has a high calcium. Vitamin-D is 76. PTH is low at 8.3. Vitamin a and CORTES are pending urine calcium was not collected Serum and urine immunofixation and kappa lambda ratio are pending. because of the low PTH I will order a renal scan. (4) Urinary tract infection: Code(s): N39.0 - Urinary tract infection, site not specified Status: Acute Assessment and Plan: The patient has pyuria. Urine culture is pending. She is getting antibiotics. (5) Pure hypercholesterolemia: Code(s): E78.00 - Pure hypercholesterolemia, unspecified Status: Chronic Assessment and Plan: She is on simvastatin (6) Gastroesophageal reflux disease: Code(s): K21.9 - Gastro-esophageal reflux disease without esophagitis Status: Acute Assessment and Plan: She is on omeprazole Subjective Date/time seen: 05/20/21 10:17 Interval history: patient is feeling better today. She wants to go home. Review of Systems Cardiovascular: Cardiovascular: Reports no additional cardiovascular complaints Respiratory: Respiratory: Reports no additional respiratory complaints Gastrointestinal: Gastrointestinal: Reports no additional gastrointestinal complaints Genitourinary: Genitourinary: Reports no additional female genitourinary complaints Exam Narrative: WDWN in NAD skin no rash head ncat lungs clear cor reg no rub abd BS+ nontender and soft ext no edema. Objective Data Vital Signs Vital Signs: Vital Signs - 24 hr 05/19/21 10:19 05/19/21 12:32 05/19/21 15:09 Temperature Pulse Rate 81 87 Respiratory Rate 17 16 Blood Pressure 106/93 H 176/67 H Pulse Oximetry 97 95 100 05/19/21 15:20 05/19/21 17:40 05/19/21 20:00 Temperature 36.5 C Pulse Rate 75 82 Respiratory Rate 16 Blood Pressure 140/69 Pulse Oximetry 96 96 05/19/21 22:00 05/20/21 00:00 05/20/21 04:00 Temperature 37.1 C Pulse Rate 78 87 90 Respiratory Rate 18 Blood Pressure 166/53 H Pulse Oximetry 100 05/20/21 06:00 05/20/21 08:18 05/20/21 08:21 Temperature 36.1 C L Pulse Rate 87 77 Respiratory Rate 18 20 Blood Pressure 152/70 H Pulse Oximetry 94 93 Intake/Output Intake/Output: Intake & Output 05/17/21 05/18/21 05/19/21 05/20/21 23:59 23:59 23:59 23:59 Intake Total 1540 460 Output Total 500 100 Balance 1040 360 Meds/Results Medications: Active Medications Generic Name Dose Route Start Last Admin Trade Name Freq PRN Reason Stop Dose Admin Albuterol 2 puff 05/20/21 02:19 Albuterol Sulfate (*Sp) Aerosol 1 Puff INHALATION Q4-6H PRN shortness of breath or wheezing Aspirin 81 mg 05/20/21 09:00 05/20/21 09:31 Aspirin 81 Mg Enter
--- NOTE | 2021-05-20 14:43 | PM.IMPN ---
Progress Note: A&P Assessment and Plan (1) Urinary tract infection: Code(s): N39.0 - Urinary tract infection, site not specified Status: Acute Assessment and Plan: UA consistent with UTI -continue ceftriaxone -monitor cultures and adjust as necessary -I think her weakness is multifactorial and likely due to UTI, depression, dehydration, and debility. Continue PT and OT (2) Acute worsening of stage 3 chronic kidney disease: Code(s): N18.30 - Chronic kidney disease, stage 3 unspecified Status: Acute Assessment and Plan: Creatinine improving down to 1.4 from 1.7 -will continue IV fluids through later today and will stop these and recheck creatinine tomorrow -encourage oral feedings/drinking (3) Hypercalcemia: Code(s): E83.52 - Hypercalcemia Status: Acute Assessment and Plan: Improved now down to 10.9 -PTH and vitamin-D normal -ionized calcium pending -could be due to dehydration -patient takes a multivitamin but I am unsure if there has calcium in it. Would recommend her stopping this (4) Generalized weakness: Code(s): R53.1 - Weakness Status: Acute Assessment and Plan: Likely due to UTI, dehydration, depression and debility. 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 Continue gabapentin. (8) Spinal stenosis: Code(s): M48.00 - Spinal stenosis, site unspecified Status: Acute Assessment and Plan: Severe canal stenosis noted on CT of the back. I do not think this is causing acute issues as she has no neurological deficits -she does follow with Dr. Joiner [phone] and I recommend she follow up with him soon -no signs of cauda equina, no numbness or tingling or bowel incontinence. She does have chronic urinary incontinence -monitor closely -I do not think this is the cause of her fall/weakness at this time Time Spent With Patient Time with patient: 25 - 35 minutes Subjective Date/time seen: 05/20/21 14:43 Interval history: Pt is a 86-year-old female here for UTI weakness. Patient was seen today and states she feels about same or maybe a little better. She does not like being in the hospital and wants to go home. She does not want to work with physical therapy here but I did recommend she do so so we can better evaluate her needs. She has some back pain but overall doing okay. She has chronic neuropathy and pain in her legs that has gotten a little worse today but she thinks it is the bed. She has no numbness or tingling to her lower extremities. She is chronically incontinent of urine for a couple months but no incontinence of bowel. She sees Dr. Joiner, spine surgeon, but has not seen him since before [facility]. She denies nausea, vomiting, fevers, chills, abdominal pain, chest pain or shortness of breath. She is very sad that her recently since he is wanted to care of her. Her daughter lives close and she has been helping her Review of Systems Review of Systems: All systems reviewed & are unremarkable except as noted in HPI and below Exam Narrative: General: Well developed well nourished patient in NAD HEENT: normocephalic Neck: supple Neuro: Alert and oriented. Cranial nerves 2-12 intact. Equal strength the upper lower extremities 5/5. Able to abduct and adduct her legs. Straight leg raise negative. Pain to palpation to the legs but reflexes s
[2021-05-20] MEDS: ONDANSETRON INJ 4 MG/2 ML VIAL IV PUSH (17:46)
[2021-05-20] MEDS: OMEGA 3 POLYUNSAT FATTY ACIDS 1 GM CAP PO (18:21)
[2021-05-20] MEDS: SODIUM CHLORIDE 0.9% IV 1,000 ML 75 ML IV CONT (18:50)
[2021-05-20] MEDS: GABAPENTIN 300 MG CAPSULE PO (20:14)
[2021-05-20] MEDS: FAMOTIDINE 20 MG/2 ML VIAL IV PUSH (20:14)
[2021-05-21] VITALS (9 sets, daily range): BP systolic 130–144; BP diastolic 58–79; PULSE 61–88; RESP 12–18; TEMP 35.9–36.5; O2SAT 94–98
[2021-05-21] MEDS: LEVOTHYROXINE SODIUM 88 MCG TABLET PO (05:51)
[2021-05-21 06:21] LABS: Basophils Percent Auto 0.5 % (0.2-1.2); Eosinophils Absolute Auto 0.2 K/mm3 (0-0.3); Eosinophils Percent Auto 2.6 % (0-4.4); Hematocrit 31.4 % (37.0-47.0); Hemoglobin 10.5 g/dL (12.0-15.0); Immature Granulocyte Absolute 0.03 K/mm3 (0.00-0.031); Immature Granulocyte Percent A 0.5 % (0-0.5); Lymphocytes Absolute Auto 1.25 K/mm3 (0.9-3.2); Lymphocytes Percent Auto 20.5 % (18.3-44.2); Mean Corpuscular HGB Conc 33.4 g/dl (32-36); Mean Corpuscular Volume 101.6 fl (80-100); Mean Platelet Volume 10.6 fl (7.4-10.4); Monocytes Absolute Auto 0.7 K/mm3 (0.1-0.6); Monocytes Percent Auto 12.2 % (2.6-8.5); Neutrophils Absolute Auto 3.9 K/mm3 (1.3-6.7); Neutrophils Percent Auto 63.7 % (45.5-73.1); Platelet Count Result 201 k/mm3 (150-375); Red Blood Count 3.09 M/mm3 (4.2-5.4); Red Cell Distribution Width 12.6 % (11.5-14.5); White Blood Count 6.1 K/mm3 (4.5-10.0)
[2021-05-21 07:50] LABS: Albumin Level 3.3 g/dL (3.5-5.1); Anion Gap 6 mmol/L (8-16); Blood Urea Nitrogen 17 mg/dL (7-17); Calcium 10.4 mg/dL (8.4-10.2); Carbon Dioxide 25 mmol/L (22-30); Chloride 109 mmol/L (98-107); Creatine Kinase 86 U/L (30-135); Estimated Glomerular Filt Rate 39; Glucose 92 mg/dL (65-110); Phosphorus 3.5 mg/dL (2.5-4.5); Potassium 3.5 mmol/L (3.4-5.0); Sodium 140 mmol/L (137-145)
--- NOTE | 2021-05-21 08:30 | PM.IMPN ---
Progress Note: A&P Assessment and Plan (1) Urinary tract infection: Code(s): N39.0 - Urinary tract infection, site not specified Status: Acute (2) Acute worsening of stage 3 chronic kidney disease: Code(s): N18.30 - Chronic kidney disease, stage 3 unspecified Status: Acute Assessment and Plan: Creatinine improving down to 1.4 from 1.7 -will continue IV fluids through later today and will stop these and recheck creatinine tomorrow -encourage oral feedings/drinking (3) Hypercalcemia: Code(s): E83.52 - Hypercalcemia Status: Acute Assessment and Plan: Improved now down to 10.9 -PTH and vitamin-D normal -ionized calcium pending -could be due to dehydration -patient takes a multivitamin but I am unsure if there has calcium in it. Would recommend her stopping this (4) Generalized weakness: Code(s): R53.1 - Weakness Status: Acute Assessment and Plan: Likely due to UTI, dehydration, depression and debility. 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 Continue gabapentin. (8) Spinal stenosis: Code(s): M48.00 - Spinal stenosis, site unspecified Status: Acute Assessment and Plan: Severe canal stenosis noted on CT of the back. I do not think this is causing acute issues as she has no neurological deficits -she does follow with Dr. Joiner [phone] and I recommend she follow up with him soon -no signs of cauda equina, no numbness or tingling or bowel incontinence. She does have chronic urinary incontinence -monitor closely -I do not think this is the cause of her fall/weakness at this time Additional Plan Has been on ceftriaxone for uti, culture growing e coli susceptible to augmentin, will switch to that today. Likely explains some nonspecific malaise symptoms from admission including weakness and lethargy. ISATU/CKD3, followed by nephrology, unremarkable renal US, presumed to be related to dehydration, renal function improving with IV hydration, continue and trend renal function until d/c. Pending renal flow Nuclear Med study. Will trend slowly dropping hgb - 12..11..10.5. Expect this is related to dilution from IV fluids. Will trend tomorrow morning for stability. CT showing central canal stenosis, consistent with patient's chronic lower back pain. CT head showing mild generalized atrophy consistent with age related losses. Care Coordination on board for post-discahrge planning. Pt recently and she is clearly upset. No suicidal or homicidal ideation, but needs some help taking care of herself potentially. Time Spent With Patient Time with patient: less than 15 minutes Subjective Date/time seen: 05/21/21 08:30 no somatic complaints, but she is not very happy about her predicament at the moment, just feels downtrodden, but only specific complaint is that she wants to get her gabapentin Review of Systems Review of Systems: All systems reviewed & are unremarkable except as noted in HPI and below Exam Const: General: no acute distress Neck: Neck: no JVD Resp: Effort & Inspection: normal respiratory effort Auscultation: clear to auscultation bilaterally Cardio: Rate: regular rate Rhythm: regular rhythm GI: GI Palp: Yes Soft to palpation and No Tenderness to palpation present (GI) Objective Data Vital Signs Vital Signs: Vital Signs - 24 hr 05/20/21 12:00 05/20/21 15
[2021-05-21] MEDS: FAMOTIDINE 20 MG/2 ML VIAL IV PUSH ×2 (09:26→21:04)
[2021-05-21] MEDS: PANTOPRAZOLE 40 MG TABLET PO (09:26)
[2021-05-21] MEDS: ASPIRIN 81 MG ENTERIC TABLET PO (09:26)
[2021-05-21] MEDS: TIMOLOL MALEATE 0.5% OP SOLN 5 ML BOTTLE 1 DROP EACH EYE ×2 (09:26→21:04)
[2021-05-21] MEDS: OMEGA 3 POLYUNSAT FATTY ACIDS 1 GM CAP PO ×2 (09:26→16:40)
[2021-05-21] MEDS: SODIUM CHLORIDE 0.9% IV 1,000 ML 75 ML IV CONT ×2 (09:27→21:05)
[2021-05-21] MEDS: FLUTICASONE/SALMETEROL 115-21 MCG INHALER 1 PUFF 2 PUFF INHALATION ×2 (09:35→20:01)
[2021-05-21] MEDS: AMOXICILLIN/CLAVULANATE K 875-125 MG TAB 1 TABLET PO ×2 (09:53→21:04)
--- NOTE | 2021-05-21 10:11 | PM.PNNEP ---
Progress Note: A&P Assessment and Plan (1) Chronic kidney disease, stage 3: Code(s): N18.30 - Chronic kidney disease, stage 3 unspecified Status: Acute Assessment and Plan: The patient has a mild reduction in GFR at baseline. It is unclear if this is really CKD stage IIIA or not. Sometimes the formula converting creatinine to GFR is not as reliable in someone who has 86 years old. She does not have hypertension or diabetes to blame this on. this is best addressed as an outpatient when stable. (2) Acute worsening of stage 3 chronic kidney disease: Code(s): N18.30 - Chronic kidney disease, stage 3 unspecified Status: Acute Assessment and Plan: The patient does have an elevated creatinine. Renal ultrasound is unremarkable. Urinalysis shows a bladder infection. Urine electrolytes are not done yet. CPK is mildly high but not enough to affect her kidneys. Renal scan is okay Most likely her decreased kidney function is from dehydration. She has poor intake at home, some diarrhea, and also the high calcium was causing a Lasix effect. creatinine is improving. It is down to 1.3 today. IV fluids has improved her kidney function. (3) Hypercalcemia: Code(s): E83.52 - Hypercalcemia Status: Acute Assessment and Plan: Patient has a high calcium. Vitamin-D is 76. PTH is low at 8.3. Vitamin a and OH are pending urine calcium was not collected Serum and urine immunofixation and kappa lambda ratio are pending. PTH is low. We will take a long time to get the labs back for vitamin-A, Oh levels, PTH related peptide, and 125 dihydroxy vitamin-D. I will order a bone survey and bone scan (4) Urinary tract infection: Code(s): N39.0 - Urinary tract infection, site not specified Status: Acute Assessment and Plan: The patient has pyuria. Urine culture is pending. She is getting antibiotics. (5) Pure hypercholesterolemia: Code(s): E78.00 - Pure hypercholesterolemia, unspecified Status: Chronic Assessment and Plan: She is on simvastatin (6) Gastroesophageal reflux disease: Code(s): K21.9 - Gastro-esophageal reflux disease without esophagitis Status: Acute Assessment and Plan: She is on omeprazole Subjective Date/time seen: 05/21/21 10:11 Interval history: patient is feeling better today. Getting some physical and occupational therapy. She wants to go home. Exam Narrative: WDWN in NAD skin no rash head ncat lungs clear Bilaterally cor reg no rub abd BS+ nontender and soft ext no edema. Objective Data Vital Signs Vital Signs: Vital Signs - 24 hr 05/20/21 12:00 05/20/21 15:12 05/20/21 16:00 Temperature 36.7 C Pulse Rate 72 79 100 Respiratory Rate 14 Blood Pressure 169/66 H Pulse Oximetry 98 05/20/21 20:00 05/20/21 21:00 05/20/21 21:11 Temperature Pulse Rate 70 74 Respiratory Rate 20 Blood Pressure Pulse Oximetry 94 05/20/21 21:53 05/21/21 00:00 05/21/21 04:00 Temperature 37.3 C Pulse Rate 68 76 61 Respiratory Rate 18 Blood Pressure 133/67 Pulse Oximetry 98 05/21/21 06:00 Temperature 35.9 C L Pulse Rate 72 Respiratory Rate 18 Blood Pressure 138/58 L Pulse Oximetry 94 Intake/Output Intake/Output: Intake & Output 05/18/21 05/19/21 05/20/21 05/21/21 23:59 23:59 23:59 23:59 Intake Total 1540 2250 1590 Output Total 500 100 Balance 1040 2150 1590 Meds/Results Medications: Active Medications Generic Name Dose Route Start Last Admin Trade Name Freq PRN Reason Stop Dose Admin Albuterol 2 puff 05/20/21 02:19 Albuterol Sulfate (*Sp) Aerosol 1 Puff INHALATION Q4-6H PRN shortness of breath or wheezing Amoxicillin/Clavulanate Potassium 1 tablet 05/21/21 09:00 05/21/21 09:53 Amoxicillin/Clavulanate K 875-125 Mg Tab PO 1 tablet Q12HR DAWIT Administration Aspirin 8
[2021-05-21] MEDS: GABAPENTIN 300 MG CAPSULE PO (21:04)
[2021-05-22] VITALS (8 sets, daily range): BP systolic 130–147; BP diastolic 50–66; PULSE 61–83; RESP 12–18; TEMP 36.5–37.1; O2SAT 94–100
[2021-05-22 05:56] LABS: Basophils Percent Auto 0.3 % (0.2-1.2); Eosinophils Absolute Auto 0.2 K/mm3 (0-0.3); Eosinophils Percent Auto 2.1 % (0-4.4); Hematocrit 31.3 % (37.0-47.0); Hemoglobin 10.6 g/dL (12.0-15.0); Immature Granulocyte Absolute 0.03 K/mm3 (0.00-0.031); Immature Granulocyte Percent A 0.4 % (0-0.5); Lymphocytes Absolute Auto 1.02 K/mm3 (0.9-3.2); Lymphocytes Percent Auto 14.6 % (18.3-44.2); Mean Corpuscular HGB Conc 33.9 g/dl (32-36); Mean Corpuscular Hemoglobin 34.4 pg (26-34); Mean Corpuscular Volume 101.6 fl (80-100); Mean Platelet Volume 10.3 fl (7.4-10.4); Monocytes Absolute Auto 0.8 K/mm3 (0.1-0.6); Monocytes Percent Auto 10.7 % (2.6-8.5); Neutrophils Percent Auto 71.9 % (45.5-73.1); Platelet Count Result 189 k/mm3 (150-375); Red Blood Count 3.08 M/mm3 (4.2-5.4); Red Cell Distribution Width 12.4 % (11.5-14.5)
[2021-05-22 06:09] LABS: Alanine Aminotransferase 17 U/L (4-35); Albumin Level 3.4 g/dL (3.5-5.1); Alkaline Phosphatase 55 U/L (38-126); Anion Gap 5 mmol/L (8-16); Aspartate Amino Transferase 26 U/L (14-36); Bilirubin,Total 0.6 mg/dL (0.2-1.3); Blood Urea Nitrogen 17 mg/dL (7-17); Calcium 10.2 mg/dL (8.4-10.2); Carbon Dioxide 28 mmol/L (22-30); Chloride 106 mmol/L (98-107); Estimated Glomerular Filt Rate 39; Glucose 95 mg/dL (65-110); Magnesium 1.7 mg/dL (1.6-2.3); Phosphorus 3.8 mg/dL (2.5-4.5); Potassium 3.4 mmol/L (3.4-5.0); Sodium 139 mmol/L (137-145)
[2021-05-22] MEDS: LEVOTHYROXINE SODIUM 88 MCG TABLET PO (06:18)
[2021-05-22] MEDS: FAMOTIDINE 20 MG/2 ML VIAL IV PUSH ×2 (08:26→20:55)
[2021-05-22] MEDS: ASPIRIN 81 MG ENTERIC TABLET PO (08:26)
[2021-05-22] MEDS: OMEGA 3 POLYUNSAT FATTY ACIDS 1 GM CAP PO ×2 (08:26→17:02)
[2021-05-22] MEDS: PANTOPRAZOLE 40 MG TABLET PO (08:27)
[2021-05-22] MEDS: TIMOLOL MALEATE 0.5% OP SOLN 5 ML BOTTLE 1 DROP EACH EYE ×2 (08:27→20:56)
[2021-05-22] MEDS: AMOXICILLIN/CLAVULANATE K 875-125 MG TAB 1 TABLET PO ×2 (08:27→20:55)
--- NOTE | 2021-05-22 08:30 | PM.IMPN ---
Progress Note: A&P Assessment and Plan (1) Urinary tract infection: Code(s): N39.0 - Urinary tract infection, site not specified Status: Acute (2) Acute worsening of stage 3 chronic kidney disease: Code(s): N18.30 - Chronic kidney disease, stage 3 unspecified Status: Acute (3) Generalized weakness: Code(s): R53.1 - Weakness Status: Acute Assessment and Plan: Likely due to UTI, dehydration, depression and debility. 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 Continue gabapentin. (7) Spinal stenosis: Code(s): M48.00 - Spinal stenosis, site unspecified Status: Acute Additional Plan Initially on Ceftriaxone for uti, culture growing e coli susceptible to augmentin, so now on PO abx. Likely explains some nonspecific malaise symptoms from admission including weakness and lethargy. ISATU/CKD3, followed by nephrology, unremarkable renal US, presumed to be related to dehydration, renal function improving with IV hydration, continue and trend renal function until d/c. Nuclear Med renal flow study showing symmetric kidney function, adequate uptake on both sides, slightly better on left, but delayed contrast clearance. Overall consistent with CKD. Hypercalcemic on admission, to 12.7, trended down to 10.2 today. PTH 8.3, PTHrp pending. Skeletal survey not showing osteoblastic or osteolytic disease. Maybe related to dehydration? Slowly downtrending hgb - 12..11..10.5. However stable since yesterday. Expect this is related to dilution from IV fluids. Noted also slightly macrocytic - but normal b12 folate, not alcoholic with history of cirrhosis. Probably related to hypothyroidism. CT showing central canal stenosis, consistent with patient's chronic lower back pain. CT head showing mild generalized atrophy consistent with age related losses. Continue pain management. Care Coordination on board for post-discharge planning. Pt recently and she is clearly upset. No suicidal or homicidal ideation, but needs some help taking care of herself potentially. Time Spent With Patient Time with patient: less than 15 minutes Subjective Date/time seen: 05/22/21 08:30 general malaise, however no acute complaints eager to find options for post hospital placement Review of Systems Review of Systems: All systems reviewed & are unremarkable except as noted in HPI and below Exam Const: General: no acute distress Neck: Neck: no JVD Resp: Effort & Inspection: normal respiratory effort Auscultation: clear to auscultation bilaterally Cardio: Rate: regular rate Rhythm: regular rhythm GI: GI Palp: Yes Soft to palpation and No Tenderness to palpation present (GI) Objective Data Vital Signs Vital Signs: Vital Signs - 24 hr 05/21/21 09:20 05/21/21 12:00 05/21/21 14:41 Temperature 97.7 F Pulse Rate 75 69 62 Respiratory Rate 12 Blood Pressure 130/61 Pulse Oximetry 95 05/21/21 20:00 05/21/21 20:01 05/21/21 22:00 Temperature 96.9 F L Pulse Rate 88 Respiratory Rate 18 Blood Pressure 144/79 H Pulse Oximetry 95 95 98 05/22/21 06:00 05/22/21 08:00 05/22/21 08:18 Temperature 97.7 F Pulse Rate 70 66 66 Respiratory Rate 18 18 Blood Pressure 136/65 130/66 Pulse Oximetry 94 94 Intake/Output Intake/Output: Intake & Output 05/19/21 05/20/21 05/21/21 05/22/21 23:59 23:59 23:59 23:59 Intake Total 1540 2250 2950 300
[2021-05-22] MEDS: FLUTICASONE/SALMETEROL 115-21 MCG INHALER 1 PUFF 2 PUFF INHALATION ×2 (09:00→20:46)
[2021-05-22] MEDS: SODIUM CHLORIDE 0.9% IV 1,000 ML 75 ML IV CONT ×2 (11:25→17:50)
--- NOTE | 2021-05-22 16:03 | PM.PNNEP ---
Progress Note: A&P Assessment and Plan (1) Chronic kidney disease, stage 3: Code(s): N18.30 - Chronic kidney disease, stage 3 unspecified Status: Acute Assessment and Plan: The patient has a mild reduction in GFR at baseline. It will evaluate this as an outpatient (2) Acute worsening of stage 3 chronic kidney disease: Code(s): N18.30 - Chronic kidney disease, stage 3 unspecified Status: Acute Assessment and Plan: The patient does have an elevated creatinine. Renal ultrasound is unremarkable. Urinalysis shows a bladder infection. Urine electrolytes are not done yet. CPK is mildly high but not enough to affect her kidneys. Renal scan is okay Most likely her decreased kidney function is from dehydration. this is on the way to being resolved with fluids. Not eating very well. She does not like the food. Will go 1 more day with the IV fluids (3) Hypercalcemia: Code(s): E83.52 - Hypercalcemia Status: Acute Assessment and Plan: Patient has a high calcium. Vitamin-D is 76. PTH is low at 8.3. Vitamin a and OH are pending urine calcium pending Serum and urine immunofixation and kappa lambda ratio are pending. PTH is low. We will take a long time to get the labs back for vitamin-A, Oh levels, PTH related peptide, and 125 dihydroxy vitamin-D. I will order a bone survey and bone scan (4) Urinary tract infection: Code(s): N39.0 - Urinary tract infection, site not specified Status: Acute Assessment and Plan: The patient has pyuria. Urine culture is pending. She is getting antibiotics. (5) Pure hypercholesterolemia: Code(s): E78.00 - Pure hypercholesterolemia, unspecified Status: Chronic Assessment and Plan: She is on simvastatin (6) Gastroesophageal reflux disease: Code(s): K21.9 - Gastro-esophageal reflux disease without esophagitis Status: Acute Assessment and Plan: She is on omeprazole Subjective Date/time seen: 05/22/21 16:03 Interval history: patient is feeling better today. I feel lonely eager for discharge. Exam Narrative: WDWN in NAD skin no rash or subcu nodules head ncat lungs clear Bilaterally cor reg no rub abd BS+ nontender and soft ext no edema. Objective Data Vital Signs Vital Signs: Vital Signs - 24 hr 05/21/21 20:00 05/21/21 20:01 05/21/21 22:00 Temperature 36.1 C L Pulse Rate 88 Respiratory Rate 18 Blood Pressure 144/79 H Pulse Oximetry 95 95 98 05/22/21 06:00 05/22/21 08:00 05/22/21 08:18 Temperature 36.5 C Pulse Rate 70 66 66 Respiratory Rate 18 18 Blood Pressure 136/65 130/66 Pulse Oximetry 94 94 05/22/21 09:00 05/22/21 14:32 Temperature 36.7 C Pulse Rate 83 66 Respiratory Rate 18 12 Blood Pressure 147/58 H Pulse Oximetry 98 Intake/Output Intake/Output: Intake & Output 05/19/21 05/20/21 05/21/21 05/22/21 23:59 23:59 23:59 23:59 Intake Total 1540 2250 2950 1780 Output Total 500 100 Balance 1040 2150 2950 1780 Meds/Results Medications: Active Medications Generic Name Dose Route Start Last Admin Trade Name Freq PRN Reason Stop Dose Admin Albuterol 2 puff 05/20/21 02:19 Albuterol Sulfate (*Sp) Aerosol 1 Puff INHALATION Q4-6H PRN shortness of breath or wheezing Amoxicillin/Clavulanate Potassium 1 tablet 05/21/21 09:00 05/22/21 08:27 Amoxicillin/Clavulanate K 875-125 Mg Tab PO 1 tablet Q12HR DAWIT Administration Aspirin 81 mg 05/20/21 09:00 05/22/21 08:26 Aspirin 81 Mg Enteric Tablet PO 81 mg DAILY DAWIT Administration Chlordiazepoxide HCl 5 mg 05/20/21 02:19 Chlordiazepoxide (*Crx) 5 Mg Capsule PO Q12H PRN anxiety Famotidine 20 mg 05/19/21 21:00 05/22/21 08:26 Famotidine 20 Mg/2 Ml Vial IV PUSH 20 mg Q12HR DAWIT Administration Fish Oil 1 gm 05/20/21 09:00 05/22/21 08:26 [place] 3 Polyunsat
[2021-05-22] MEDS: ACETAMINOPHEN 325 MG TABLET 650 MG PO (17:50)
[2021-05-22] MEDS: GABAPENTIN 300 MG CAPSULE PO (20:55)
[2021-05-23] VITALS (7 sets, daily range): BP systolic 132–156; BP diastolic 63–71; PULSE 69–77; RESP 12–18; TEMP 36.1–36.7; O2SAT 95–99
[2021-05-23] MEDS: SODIUM CHLORIDE 0.9% IV 1,000 ML 75 ML IV CONT (02:21)
[2021-05-23 03:44] LABS: Albumin 3.1 g/dL (3.8-4.8); Alpha 1 Globulin 0.3 g/dL (0.2-0.3); Alpha 2 Globulin 0.8 g/dL (0.5-0.9); Beta 1 Globulin 0.4 g/dL (0.4-0.6); Gamma Globulin 1.3 g/dL (0.8-1.7); Protein, Total 6.2 g/dL (6.1-8.1)
[2021-05-23 06:25] LABS: Basophils Percent Auto 0.5 % (0.2-1.2); Eosinophils Absolute Auto 0.2 K/mm3 (0-0.3); Eosinophils Percent Auto 3.5 % (0-4.4); Hemoglobin 10.7 g/dL (12.0-15.0); Immature Granulocyte Absolute 0.02 K/mm3 (0.00-0.031); Immature Granulocyte Percent A 0.3 % (0-0.5); Lymphocytes Absolute Auto 1.12 K/mm3 (0.9-3.2); Lymphocytes Percent Auto 19.5 % (18.3-44.2); Mean Corpuscular HGB Conc 33.4 g/dl (32-36); Mean Corpuscular Hemoglobin 34.4 pg (26-34); Mean Corpuscular Volume 102.9 fl (80-100); Mean Platelet Volume 10.6 fl (7.4-10.4); Monocytes Absolute Auto 0.8 K/mm3 (0.1-0.6); Monocytes Percent Auto 14.6 % (2.6-8.5); Neutrophils Absolute Auto 3.5 K/mm3 (1.3-6.7); Neutrophils Percent Auto 61.6 % (45.5-73.1); Platelet Count Result 186 k/mm3 (150-375); Red Blood Count 3.11 M/mm3 (4.2-5.4); Red Cell Distribution Width 12.6 % (11.5-14.5); White Blood Count 5.7 K/mm3 (4.5-10.0)
[2021-05-23 06:33] LABS: Alanine Aminotransferase 16 U/L (4-35); Albumin Level 3.4 g/dL (3.5-5.1); Alkaline Phosphatase 54 U/L (38-126); Anion Gap 8 mmol/L (8-16); Aspartate Amino Transferase 27 U/L (14-36); Bilirubin,Total 0.7 mg/dL (0.2-1.3); Blood Urea Nitrogen 17 mg/dL (7-17); Calcium 9.6 mg/dL (8.4-10.2); Carbon Dioxide 23 mmol/L (22-30); Chloride 109 mmol/L (98-107); Estimated Glomerular Filt Rate 47; Glucose 90 mg/dL (65-110); Magnesium 1.7 mg/dL (1.6-2.3); Potassium 3.1 mmol/L (3.4-5.0); Sodium 140 mmol/L (137-145)
[2021-05-23 06:39] LABS: Albumin Level 3.5 g/dL (3.5-5.1); Anion Gap 9 mmol/L (8-16); Blood Urea Nitrogen 17 mg/dL (7-17); Calcium 9.6 mg/dL (8.4-10.2); Carbon Dioxide 23 mmol/L (22-30); Chloride 109 mmol/L (98-107); Estimated Glomerular Filt Rate 47; Glucose 90 mg/dL (65-110); Phosphorus 3.1 mg/dL (2.5-4.5); Potassium 3.1 mmol/L (3.4-5.0); Sodium 141 mmol/L (137-145)
[2021-05-23] MEDS: LEVOTHYROXINE SODIUM 88 MCG TABLET PO (06:46)
[2021-05-23 07:11] LABS: Ionized Calcium 6.8 mg/dL (4.8-5.6)
[2021-05-23] MEDS: ACETAMINOPHEN 325 MG TABLET 650 MG PO ×2 (08:14→17:09)
[2021-05-23] MEDS: AMOXICILLIN/CLAVULANATE K 875-125 MG TAB 1 TABLET PO ×2 (08:14→21:20)
[2021-05-23] MEDS: TIMOLOL MALEATE 0.5% OP SOLN 5 ML BOTTLE 1 DROP EACH EYE ×2 (08:14→21:21)
[2021-05-23] MEDS: OMEGA 3 POLYUNSAT FATTY ACIDS 1 GM CAP PO ×2 (08:14→17:09)
[2021-05-23] MEDS: PANTOPRAZOLE 40 MG TABLET PO (08:14)
[2021-05-23] MEDS: FAMOTIDINE 20 MG/2 ML VIAL IV PUSH (08:15)
[2021-05-23] MEDS: ASPIRIN 81 MG ENTERIC TABLET PO (08:15)
--- NOTE | 2021-05-23 08:34 | PM.IMPN ---
Progress Note: A&P Assessment and Plan (1) Urinary tract infection: Code(s): N39.0 - Urinary tract infection, site not specified Status: Acute (2) Acute worsening of stage 3 chronic kidney disease: Code(s): N18.30 - Chronic kidney disease, stage 3 unspecified Status: Acute (3) Generalized weakness: Code(s): R53.1 - Weakness Status: Acute Assessment and Plan: Likely due to UTI, dehydration, depression and debility. 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 Continue gabapentin. (7) Spinal stenosis: Code(s): M48.00 - Spinal stenosis, site unspecified Status: Acute Additional Plan Initially on Ceftriaxone for uti, culture growing e coli susceptible to augmentin, so now on PO abx. Likely explains some nonspecific malaise symptoms from admission including weakness and lethargy. ISATU, resolving, followed by nephrology, unremarkable renal US, presumed to be related to dehydration, renal function improving with IV hydration, continue and trend renal function until d/c. Nuclear Med renal flow study showing symmetric kidney function, adequate uptake on both sides, slightly better on left, but delayed contrast clearance. Overall consistent with CKD. Hypercalcemic on admission, to 12.7, trended down to 9.6 today. PTH 8.3, PTHrp pending. Skeletal survey not showing osteoblastic or osteolytic disease. Maybe related to dehydration? Slowly downtrending hgb - 12..11..10.7. However stable since yesterday. Expect this is related to dilution from IV fluids. Noted also slightly macrocytic - but normal b12 folate, not alcoholic with history of cirrhosis. Probably related to hypothyroidism. CT showing central canal stenosis, consistent with patient's chronic lower back pain. CT head showing mild generalized atrophy consistent with age related losses. Continue pain management. Care Coordination on board for post-discharge planning. Pt recently and she is clearly upset. No suicidal or homicidal ideation, but needs some help taking care of herself potentially. Spoke to PT, not safe for to assisted living. Will have care coordination to arrange alternative options. Time Spent With Patient Time with patient: less than 15 minutes Subjective Date/time seen: 05/23/21 08:34 no acute complaints resting comfortably Review of Systems Review of Systems: All systems reviewed & are unremarkable except as noted in HPI and below Exam Const: General: no acute distress Neck: Neck: no JVD Resp: Effort & Inspection: normal respiratory effort Auscultation: clear to auscultation bilaterally Cardio: Rate: regular rate Rhythm: regular rhythm GI: GI Palp: Yes Soft to palpation and No Tenderness to palpation present (GI) Objective Data Vital Signs Vital Signs: Vital Signs - 24 hr 05/22/21 09:00 05/22/21 14:32 05/22/21 20:42 Temperature 98.1 F Pulse Rate 83 66 80 Respiratory Rate 18 12 18 Blood Pressure 147/58 H Pulse Oximetry 98 05/22/21 20:52 05/22/21 22:00 05/23/21 06:00 Temperature 98.8 F 97.5 F L Pulse Rate 81 61 77 Respiratory Rate 18 16 18 Blood Pressure 145/50 H 156/63 H Pulse Oximetry 100 99 05/23/21 07:53 Temperature Pulse Rate 77 Respiratory Rate 18 Blood Pressure Pulse Oximetry 99 Intake/Output Intake/Output: Intake & Output 05/20/21 05/21/21 05/22/21 05/23/21 23:59 23:59 23:59 23:59 Intake Total 2
[2021-05-23] MEDS: FLUTICASONE/SALMETEROL 115-21 MCG INHALER 1 PUFF 2 PUFF INHALATION ×2 (08:51→21:27)
--- NOTE | 2021-05-23 09:26 | PM.PNNEP ---
Progress Note: A&P Assessment and Plan (1) Chronic kidney disease, stage 3: Code(s): N18.30 - Chronic kidney disease, stage 3 unspecified Status: Acute Assessment and Plan: The patient has a mild reduction in GFR at baseline. It will evaluate this as an outpatient (2) Acute worsening of stage 3 chronic kidney disease: Code(s): N18.30 - Chronic kidney disease, stage 3 unspecified Status: Acute Assessment and Plan: The patient does have an elevated creatinine. Renal ultrasound is unremarkable. Urinalysis shows a bladder infection. Urine electrolytes are not done yet. CPK is mildly high but not enough to affect her kidneys. Renal scan is okay Most likely her decreased kidney function is from dehydration. creatinine is better. Eating well. Will stop IV fluids. (3) Hypercalcemia: Code(s): E83.52 - Hypercalcemia Status: Acute Assessment and Plan: Patient has a high calcium. Vitamin-D is 76. PTH is low at 8.3. Vitamin a and OH are pending urine calcium pending Serum and urine immunofixation and kappa lambda ratio are pending. Metastatic bone survey was negative. PTH is low. We will take a long time to get the labs back for vitamin-A, Oh levels, PTH related peptide, and 125 dihydroxy vitamin-D. I will order a bone scan (4) Urinary tract infection: Code(s): N39.0 - Urinary tract infection, site not specified Status: Acute Assessment and Plan: The patient has pyuria. Urine culture is pending. She is getting antibiotics. (5) Pure hypercholesterolemia: Code(s): E78.00 - Pure hypercholesterolemia, unspecified Status: Chronic Assessment and Plan: She is on simvastatin (6) Gastroesophageal reflux disease: Code(s): K21.9 - Gastro-esophageal reflux disease without esophagitis Status: Acute Assessment and Plan: She is on omeprazole Subjective Date/time seen: 05/23/21 09:26 Interval history: patient is feeling okay. No chest pain or shortness of breath Exam Narrative: WDWN in NAD skin no rash or subcu nodules head ncat lungs clear Bilaterally cor reg no rub or gallop abd BS+ nontender and soft ext no edema. Objective Data Vital Signs Vital Signs: Vital Signs - 24 hr 05/22/21 14:32 05/22/21 20:42 05/22/21 20:52 Temperature 36.7 C Pulse Rate 66 80 81 Respiratory Rate 12 18 18 Blood Pressure 147/58 H Pulse Oximetry 98 05/22/21 22:00 05/23/21 06:00 05/23/21 07:53 Temperature 37.1 C 36.4 C L Pulse Rate 61 77 77 Respiratory Rate 16 18 18 Blood Pressure 145/50 H 156/63 H Pulse Oximetry 100 99 99 05/23/21 08:51 05/23/21 08:53 Temperature Pulse Rate 73 Respiratory Rate 16 Blood Pressure Pulse Oximetry 95 Intake/Output Intake/Output: Intake & Output 05/20/21 05/21/21 05/22/21 05/23/21 23:59 23:59 23:59 23:59 Intake Total 2250 2950 3140 1240 Output Total 100 Balance 2150 2950 3140 1240 Meds/Results Medications: Active Medications Generic Name Dose Route Start Last Admin Trade Name Freq PRN Reason Stop Dose Admin Acetaminophen 650 mg 05/22/21 17:46 05/23/21 08:14 Acetaminophen 325 Mg Tablet PO 650 mg Q6H PRN Administration Mild Pain (1-3) or Fever Albuterol 2 puff 05/20/21 02:19 Albuterol Sulfate (*Sp) Aerosol 1 Puff INHALATION Q4-6H PRN shortness of breath or wheezing Amoxicillin/Clavulanate Potassium 1 tablet 05/21/21 09:00 05/23/21 08:14 Amoxicillin/Clavulanate K 875-125 Mg Tab PO 1 tablet Q12HR DAWIT Administration Aspirin 81 mg 05/20/21 09:00 05/23/21 08:15 Aspirin 81 Mg Enteric Tablet PO 81 mg DAILY DAWIT Administration Chlordiazepoxide HCl 5 mg 05/20/21 02:19 Chlordiazepoxide (*Crx) 5 Mg Capsule PO Q12H PRN anxiety Famotidine 20 mg 05/19/21 21:00 05/23/21 08:15 Famotidine 20 Mg/2 Ml Vial IV PUSH 20 mg Q12HR SC
--- NOTE | 2021-05-23 09:44 | PC.NURSE ---
Nydia meyer, called and updated on pt status.
[2021-05-23] MEDS: POTASSIUM CHLORIDE 20 MEQ TABLET PO (09:52)
--- NOTE | 2021-05-23 18:28 | PCAUD ---
MD Loera informed pt has not IV access for Magnesium 2 g IV infusion. Chandu called for IV US insertion, pt refused.
[2021-05-23] MEDS: GABAPENTIN 300 MG CAPSULE PO (21:20)
[2021-05-24 06:00] VITALS: BP 142/85; PULSE 72; RESP 16; TEMP 36.6; O2SAT 98
[2021-05-24] MEDS: LEVOTHYROXINE SODIUM 88 MCG TABLET PO (06:02)
[2021-05-24 06:40] LABS: Kappa\\Lambda Light Chains 1.71 (0.26-1.65); Lambda Light Chain 33.5 mg/L (5.7-26.3)
[2021-05-24 06:42] LABS: Basophils Percent Auto 0.4 % (0.2-1.2); Eosinophils Absolute Auto 0.2 K/mm3 (0-0.3); Eosinophils Percent Auto 4.3 % (0-4.4); Hematocrit 32.2 % (37.0-47.0); Hemoglobin 11.1 g/dL (12.0-15.0); Immature Granulocyte Absolute 0.02 K/mm3 (0.00-0.031); Immature Granulocyte Percent A 0.4 % (0-0.5); Lymphocytes Absolute Auto 1.02 K/mm3 (0.9-3.2); Lymphocytes Percent Auto 19.7 % (18.3-44.2); Mean Corpuscular HGB Conc 34.5 g/dl (32-36); Mean Corpuscular Hemoglobin 33.6 pg (26-34); Mean Corpuscular Volume 97.6 fl (80-100); Mean Platelet Volume 10.8 fl (7.4-10.4); Monocytes Absolute Auto 0.8 K/mm3 (0.1-0.6); Monocytes Percent Auto 15.9 % (2.6-8.5); Neutrophils Absolute Auto 3.1 K/mm3 (1.3-6.7); Neutrophils Percent Auto 59.3 % (45.5-73.1); Platelet Count Result 220 k/mm3 (150-375); Red Cell Distribution Width 12.4 % (11.5-14.5); White Blood Count 5.2 K/mm3 (4.5-10.0)
[2021-05-24 06:56] LABS: Alanine Aminotransferase 17 U/L (4-35); Albumin Level 3.7 g/dL (3.5-5.1); Alkaline Phosphatase 57 U/L (38-126); Anion Gap 7 mmol/L (8-16); Aspartate Amino Transferase 26 U/L (14-36); Bilirubin,Total 0.7 mg/dL (0.2-1.3); Blood Urea Nitrogen 15 mg/dL (7-17); Calcium 9.7 mg/dL (8.4-10.2); Carbon Dioxide 25 mmol/L (22-30); Chloride 109 mmol/L (98-107); Estimated Glomerular Filt Rate 53; Glucose 90 mg/dL (65-110); Magnesium 1.7 mg/dL (1.6-2.3); Phosphorus 3.1 mg/dL (2.5-4.5); Potassium 3.2 mmol/L (3.4-5.0); Sodium 141 mmol/L (137-145)
[2021-05-24] MEDS: ASPIRIN 81 MG ENTERIC TABLET PO (08:29)
[2021-05-24] MEDS: AMOXICILLIN/CLAVULANATE K 875-125 MG TAB 1 TABLET PO ×2 (08:29→20:05)
[2021-05-24] MEDS: PANTOPRAZOLE 40 MG TABLET PO (08:29)
[2021-05-24] MEDS: TIMOLOL MALEATE 0.5% OP SOLN 5 ML BOTTLE 1 DROP EACH EYE ×2 (08:29→20:05)
[2021-05-24] MEDS: FLUTICASONE/SALMETEROL 115-21 MCG INHALER 1 PUFF 2 PUFF INHALATION ×2 (09:01→21:13)
[2021-05-24 09:03] VITALS: O2SAT 95
[2021-05-24] MEDS: FAMOTIDINE 20 MG/2 ML VIAL IV PUSH (10:54)
--- NOTE | 2021-05-24 11:52 | PM.IMPN ---
Progress Note: A&P Assessment and Plan (1) Urinary tract infection: Code(s): N39.0 - Urinary tract infection, site not specified Status: Acute Assessment and Plan: Pt is being treated for UTI, Initially on Ceftriaxone for uti, culture growing e coli susceptible to augmentin, so now on PO abx. 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 (7) Spinal stenosis: Code(s): M48.00 - Spinal stenosis, site unspecified Status: Chronic Additional Plan Previous notes see below:- ISATU, resolving, followed by nephrology, unremarkable renal US. Overall consistent with CKD. Hypercalcemic on admission, to 12.7, trended down to 9.6 today. PTH 8.3, PTHrp pending. Skeletal survey not showing osteoblastic or osteolytic disease. Maybe related to dehydration? Slowly downtrending hgb - 12..11..10.7. However stable since yesterday. Expect this is related to dilution from IV fluids. Noted also slightly macrocytic - but normal b12 folate, not alcoholic with history of cirrhosis. Probably related to hypothyroidism. CT showing central canal stenosis, consistent with patient's chronic lower back pain. CT head showing mild generalized atrophy consistent with age related losses. Continue pain management. Care Coordination on board for post-discharge planning. 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 She has gotten progressively more weak over the last 2 to 3 weeks after the of her of nearly 68 years. Found to have UTI. and low bps. Pt feels better now. Review of Systems Review of Systems: All systems reviewed & are unremarkable except as noted in HPI and below Exam Narrative: General: Well developed well nourished HEENT: normocephalic Neck: supple Neuro: Alert and oriented. Cranial nerves 2-12 intact. Neuro exam unremarkable CV:RRR Resp: Clear Abd: Soft, non distended. No pain to palpation. Positive bowel sounds Extremities: No swelling or erythema. Pain to palpation bilaterally Objective Data Vital Signs Vital Signs: Vital Signs - 24 hr 05/23/21 14:23 05/23/21 21:31 05/23/21 22:00 Temperature 36.7 C 36.1 C L Pulse Rate 69 72 Respiratory Rate 12 18 Blood Pressure 132/71 145/63 H Pulse Oximetry 95 98 99 05/24/21 06:00 05/24/21 09:03 Temperature 36.6 C Pulse Rate 72 Respiratory Rate 16 Blood Pressure 142/85 H Pulse Oximetry 98 95 Intake/Output Intake/Output: Intake & Output 05/21/21 05/22/21 05/23/21 05/24/21 23:59 23:59 23:59 23:59 Intake Total 2950 3140 1840 350 Balance 2950 3140 1840 350 Meds/Results Medications: Active Medications Generic Name Dose Route Start Last Admin Trade Name Freq PRN Reason Stop Dose Admin Acetaminophen 650 mg 05/22/21 17:46 05/23/21 17:09 Acetaminophen 325 Mg Tablet PO 650 mg Q6H PRN Administration Mild Pain (1-3) or Fever Albuterol 2 puff 05/20/21 02:19 Albuterol Sulfate (*Sp) Aerosol 1 Puff
[2021-05-24 11:54] LABS: Vitamin D 1,25 (OH)2 Total 47 pg/mL (18-72); Vitamin D2 1,25 (OH)2 <8 pg/mL; Vitamin D3 1,25 (OH)2 47 pg/mL
[2021-05-24 14:00] VITALS: BP 148/57; PULSE 65; RESP 16; TEMP 35.8; O2SAT 98
[2021-05-24 14:15] LABS: Complement Total CH50 >60 U/mL (31-60)
--- NOTE | 2021-05-24 15:29 | PM.PNNEP ---
Progress Note: A&P Assessment and Plan (1) ISATU (acute kidney injury): Code(s): N17.9 - Acute kidney failure, unspecified Status: Acute Assessment and Plan: resolving creatinine appears back to baseline evaluation to date: - renal ultrasound unremarkable - UA with evidence of infection - CPK mildly elevated (but not enought to affect kidneys) - renal scan okay given improvement in renal function with IVF, insult is likely from dehydration follow off IVFs (2) Chronic kidney disease, stage 3: Code(s): N18.30 - Chronic kidney disease, stage 3 unspecified Status: Acute Assessment and Plan: baseline creatinine ~ 1.0mg/dl suspect due to HTN, vscular disease, and age-related change further evaluation as an outpatient (3) Hypercalcemia: Code(s): E83.52 - Hypercalcemia Status: Acute Assessment and Plan: resolving/improving work-up to date reveals: - vitamin D 76 - PTH low at 8.3 - CORTES level/Vitamin A/SPEP + UPEP with immunofixation/kappa lambda ratio pending - skeletal survey negative - bone scan negative calcium appears to have normalized follow-up on pending tests (4) Urinary tract infection: Code(s): N39.0 - Urinary tract infection, site not specified Status: Acute Assessment and Plan: urine culture with E. coli on antibiotics Will continue to follow. Subjective Date/time seen: 05/24/21 15:29 Chart reviewed -- assuming care from Dr. Yen; overall, seems to be feeling a bit better at this time; does endorse some nausea at the time of my visit; no acute distress noted; no issues/events overnight or earlier this morning; no other complaints to report. Exam Narrative: General: Elderly female in NAD Heart: normal S1 and S2; no rub Lungs: clear to auscultation Abdomen: soft, nontender, nondistended, positive bowel sounds Extremities: no cyanosis or clubbing; no edema Skin: warm and dry Objective Data Vital Signs Vital Signs: Vital Signs Temp Pulse Resp BP Pulse Ox 05/24/21 14:00 35.8 C L 65 16 148/57 H 98 05/24/21 09:03 95 05/24/21 06:00 36.6 C 72 16 142/85 H 98 05/23/21 22:00 36.1 C L 72 18 145/63 H 99 05/23/21 21:31 98 Intake/Output Intake/Output: Intake & Output 05/21/21 05/22/21 05/23/21 05/24/21 23:59 23:59 23:59 23:59 Intake Total 2950 3140 1840 470 Balance 2950 3140 1840 470 Meds/Results Medications: Active Medications Generic Name Dose Route Start Last Admin Trade Name Freq PRN Reason Stop Dose Admin Acetaminophen 650 mg 05/22/21 17:46 05/23/21 17:09 Acetaminophen 325 Mg Tablet PO 650 mg Q6H PRN Administration Mild Pain (1-3) or Fever Albuterol 2 puff 05/20/21 02:19 Albuterol Sulfate (*Sp) Aerosol 1 Puff INHALATION Q4-6H PRN shortness of breath or wheezing Amoxicillin/Clavulanate Potassium 1 tablet 05/21/21 09:00 05/24/21 08:29 Amoxicillin/Clavulanate K 875-125 Mg Tab PO 1 tablet Q12HR DAWIT Administration Aspirin 81 mg 05/20/21 09:00 05/24/21 08:29 Aspirin 81 Mg Enteric Tablet PO 81 mg DAILY DAWIT Administration Chlordiazepoxide HCl 5 mg 05/20/21 02:19 Chlordiazepoxide (*Crx) 5 Mg Capsule PO Q12H PRN anxiety Fish Oil 1 gm 05/20/21 09:00 05/24/21 08:28 Vina 3 Polyunsat Fatty Acids 1 Gm Cap PO Not Given BID DAWIT Gabapentin 300 mg 05/20/21 21:00 05/23/21 21:20 Gabapentin 300 Mg Capsule PO 300 mg HS DAWIT Administration Levothyroxine Sodium 88 mcg 05/20/21 06:30 05/24/21 06:02 Levothyroxine Sodium 88 Mcg Tablet PO 88 mcg DAILY@0630 DAWIT Administration Ondansetron HCl 4 mg 05/19/21 12:58 05/20/21 17:46 Ondansetron Inj 4 Mg/2 Ml Vial IV PUSH 4 mg Q4H PRN Administration Nausea Pantoprazole Sodi
[2021-05-24] MEDS: ONDANSETRON INJ 4 MG/2 ML VIAL IV PUSH (16:56)
[2021-05-24] MEDS: OMEGA 3 POLYUNSAT FATTY ACIDS 1 GM CAP PO (17:11)
[2021-05-24 20:00] VITALS: O2SAT 98
[2021-05-24] MEDS: GABAPENTIN 300 MG CAPSULE PO (20:05)
[2021-05-24 21:13] VITALS: PULSE 64; O2SAT 93
[2021-05-24 22:00] VITALS: BP 135/60; PULSE 65; RESP 18; TEMP 36.1; O2SAT 97
[2021-05-25] VITALS (7 sets, daily range): BP systolic 107–149; BP diastolic 50–69; PULSE 63–74; RESP 14–18; TEMP 36.2–36.5; O2SAT 93–97
[2021-05-25] MEDS: LEVOTHYROXINE SODIUM 88 MCG TABLET PO (06:24)
[2021-05-25] MEDS: FLUTICASONE/SALMETEROL 115-21 MCG INHALER 1 PUFF 2 PUFF INHALATION ×2 (08:10→20:14)
[2021-05-25] MEDS: ASPIRIN 81 MG ENTERIC TABLET PO (08:50)
[2021-05-25] MEDS: PANTOPRAZOLE 40 MG TABLET PO (08:50)
[2021-05-25] MEDS: AMOXICILLIN/CLAVULANATE K 875-125 MG TAB 1 TABLET PO ×2 (08:50→21:35)
[2021-05-25] MEDS: TIMOLOL MALEATE 0.5% OP SOLN 5 ML BOTTLE 1 DROP EACH EYE ×2 (08:50→21:35)
[2021-05-25 09:12] LABS: Hematocrit 34.9 % (37.0-47.0); Hemoglobin 11.7 g/dL (12.0-15.0); Mean Corpuscular HGB Conc 33.5 g/dl (32-36); Mean Corpuscular Hemoglobin 33.9 pg (26-34); Mean Corpuscular Volume 101.2 fl (80-100); Mean Platelet Volume 10.6 fl (7.4-10.4); Platelet Count Result 222 k/mm3 (150-375); Red Blood Count 3.45 M/mm3 (4.2-5.4); Red Cell Distribution Width 12.9 % (11.5-14.5); White Blood Count 6.2 K/mm3 (4.5-10.0)
[2021-05-25 09:33] LABS: Albumin Level 3.7 g/dL (3.5-5.1); Anion Gap 7 mmol/L (8-16); Blood Urea Nitrogen 15 mg/dL (7-17); Calcium 9.3 mg/dL (8.4-10.2); Carbon Dioxide 25 mmol/L (22-30); Chloride 108 mmol/L (98-107); Estimated Glomerular Filt Rate 60; Glucose 96 mg/dL (65-110); Phosphorus 3.6 mg/dL (2.5-4.5); Potassium 3.8 mmol/L (3.4-5.0); Sodium 140 mmol/L (137-145)
--- NOTE | 2021-05-25 10:16 | PM.PNNEP ---
Progress Note: A&P Assessment and Plan (1) ISATU (acute kidney injury): Code(s): N17.9 - Acute kidney failure, unspecified Status: Acute Assessment and Plan: resolving (if not resolved) creatinine appears back to baseline evaluation to date: - renal ultrasound unremarkable - UA with evidence of infection - CPK mildly elevated (but not enought to affect kidneys) - renal scan okay given improvement in renal function with IVF, insult is likely from dehydration follow off IVFs (2) Chronic kidney disease, stage 3: Code(s): N18.30 - Chronic kidney disease, stage 3 unspecified Status: Acute Assessment and Plan: baseline creatinine ~ 1.0mg/dl (CKD Stage 3a) but has fluctuated with her hospitalizations suspect due to HTN, vscular disease, and age-related change (3) Hypercalcemia: Code(s): E83.52 - Hypercalcemia Status: Acute Assessment and Plan: resolving/improving work-up to date reveals: - vitamin D 76 - PTH low at 8.3 - CORTES level/Vitamin A/SPEP + UPEP with immunofixation/kappa lambda ratio pending - skeletal survey negative - bone scan negative calcium appears to have normalized follow-up on pending tests (4) Urinary tract infection: Code(s): N39.0 - Urinary tract infection, site not specified Status: Acute Assessment and Plan: urine culture with E. coli on antibiotics Will continue to follow. Subjective Date/time seen: 05/25/21 10:16 No apparent distress voiced at this time; still with on/off nausea but better overall; no events/issues overnight or earlier this AM. Exam Narrative: General: Elderly female in NAD Heart: normal S1 and S2; no rub Lungs: clear to auscultation Abdomen: soft, nontender, nondistended, positive bowel sounds Extremities: no cyanosis or clubbing; no edema Skin: warm and intact Objective Data Vital Signs Vital Signs: Vital Signs Temp Pulse Resp BP Pulse Ox 05/25/21 08:12 63 14 93 05/25/21 08:10 63 14 05/25/21 06:00 36.4 C 63 16 149/69 H 95 05/24/21 22:00 36.1 C L 65 18 135/60 97 05/24/21 21:13 64 93 05/24/21 20:00 98 05/24/21 14:00 35.8 C L 65 16 148/57 H 98 Intake/Output Intake/Output: Intake & Output 05/22/21 05/23/21 05/24/21 05/25/21 23:59 23:59 23:59 23:59 Intake Total 3140 1840 520 170 Balance 3140 1840 520 170 Meds/Results Medications: Active Medications Generic Name Dose Route Start Last Admin Trade Name Freq PRN Reason Stop Dose Admin Acetaminophen 650 mg 05/22/21 17:46 05/23/21 17:09 Acetaminophen 325 Mg Tablet PO 650 mg Q6H PRN Administration Mild Pain (1-3) or Fever Albuterol 2 puff 05/20/21 02:19 Albuterol Sulfate (*Sp) Aerosol 1 Puff INHALATION Q4-6H PRN shortness of breath or wheezing Amoxicillin/Clavulanate Potassium 1 tablet 05/21/21 09:00 05/25/21 08:50 Amoxicillin/Clavulanate K 875-125 Mg Tab PO 1 tablet Q12HR DAWIT Administration Aspirin 81 mg 05/20/21 09:00 05/25/21 08:50 Aspirin 81 Mg Enteric Tablet PO 81 mg DAILY DAWIT Administration Chlordiazepoxide HCl 5 mg 05/20/21 02:19 Chlordiazepoxide (*Crx) 5 Mg Capsule PO Q12H PRN anxiety Fish Oil 1 gm 05/20/21 09:00 05/25/21 08:51 Sylvia 3 Polyunsat Fatty Acids 1 Gm Cap PO Not Given BID DAWIT Gabapentin 300 mg 05/20/21 21:00 05/24/21 20:05 Gabapentin 300 Mg Capsule PO 300 mg HS DAWIT Administration Levothyroxine Sodium 88 mcg 05/20/21 06:30 05/25/21 06:24 Levothyroxine Sodium 88 Mcg Tablet PO 88 mcg DAILY@0630 DAWIT Administration Ondansetron HCl 4 mg 05/19/21 12:58 05/24/21 16:56 Ondansetron Inj 4 Mg/2 Ml Vial IV PUSH 4 mg Q4H PRN Administration Nausea Pantoprazole Sodium 40 mg 05/20/21 09:00
--- NOTE | 2021-05-25 13:15 | PM.DS ---
DS: Admitting Diagnosis Discharge Date 05/25/2021 Admitting Diagnosis Chief Complaint: Weakness. DS: Discharge Diagnosis Discharge Diagnosis (1) Urinary tract infection: Code(s): N39.0 - Urinary tract infection, site not specified Status: Acute Assessment and Plan: Pt is being treated for UTI, Initially on Ceftriaxone for uti, culture growing e coli susceptible to augmentin, so now on PO abx. 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 (7) Spinal stenosis: Code(s): M48.00 - Spinal stenosis, site unspecified Status: Chronic DS: Summary Hospital Course Reason for hospitalization: Chief Complaint: Weakness. Narrative: This is an 86-year-old female with history of DVT on anticoagulation, hypothyroidism, high cholesterol, anxiety, and GERD who presented to the emergency department today for evaluation of weakness. She has gotten progressively more weak over the last 2 to 3 weeks after the of her of nearly 68 years. She has had several falls in the last couple of weeks, the last being on Monday where she did hit her head although she denies loss of consciousness with that. Due to the fall she has been staying in her wheelchair more often in using her walker less than last. She admits that she has not been eating or drinking very much due to poor appetite while grieving her 's passing. Due to her increasing weakness she was brought in today for evaluation where she was found to be dehydrated with evidence of urinary tract infection as well as hypercalcemia. At the time my evaluation she is requesting some water and Jell-O but really does not have much of a desire to eat anything else. She has not had any significant nausea or vomiting but does report some loose stools. She has not been drinking much in the way of water but does report drinking 1 big glass of wine a night to help her fall asleep. She has had some mild dysuria and frequency. Hospital Course: KI, resolving, followed by nephrology, unremarkable renal US. Overall consistent with CKD. Hypercalcemic on admission, to 12.7, trended down to 9.6 today. PTH 8.3, PTHrp pending. Skeletal survey not showing osteoblastic or osteolytic disease. Maybe related to dehydration? Slowly downtrending hgb - 12..11..10.7. However stable since yesterday. Expect this is related to dilution from IV fluids. Noted also slightly macrocytic - but normal b12 folate, not alcoholic with history of cirrhosis. Probably related to hypothyroidism. CT showing central canal stenosis, consistent with patient's chronic lower back pain. CT head showing mild generalized atrophy consistent with age related losses. Continue pain management. Pt is being treated for UTI, Initially on Ceftriaxone for uti, culture growing e coli susceptible to augmentin, so now on PO abx. Today patient clinically stable will discharge patient home today Status at Discharge Functional status at discharge: wheelchair bound Overall status at discharge: patient is back to baseline Time Spent with Patient Time attestation: Total time spent providing and/or coordinating discharge services: Patient wa
[2021-05-25] MEDS: GABAPENTIN 300 MG CAPSULE PO (21:35)
[2021-05-25 22:19] LABS: Vitamin A 45 mcg/dL (38-98)
[2021-05-26 06:00] VITALS: BP 126/44; PULSE 62; RESP 18; TEMP 37.1; O2SAT 97
[2021-05-26 06:06] LABS: Calcium/Creatinine Ratio, Ur 451 mg/g creat (10-320); Urine Calcium, Random 10.5 mg/dL (***); Urine Creatinine, Random 23 mg/dL (20-275)
[2021-05-26] MEDS: LEVOTHYROXINE SODIUM 88 MCG TABLET PO (06:15)
[2021-05-26 06:37] LABS: Hemoglobin 11.2 g/dL (12.0-15.0); Mean Corpuscular HGB Conc 33.9 g/dl (32-36); Mean Corpuscular Hemoglobin 33.9 pg (26-34); Mean Platelet Volume 10.4 fl (7.4-10.4); Platelet Count Result 236 k/mm3 (150-375); Red Cell Distribution Width 12.8 % (11.5-14.5); White Blood Count 5.6 K/mm3 (4.5-10.0)
[2021-05-26 07:00] LABS: Albumin Level 3.5 g/dL (3.5-5.1); Anion Gap 6 mmol/L (8-16); Blood Urea Nitrogen 20 mg/dL (7-17); Calcium 9.7 mg/dL (8.4-10.2); Carbon Dioxide 28 mmol/L (22-30); Chloride 106 mmol/L (98-107); Estimated Glomerular Filt Rate 47; Glucose 102 mg/dL (65-110); Phosphorus 3.6 mg/dL (2.5-4.5); Potassium 3.2 mmol/L (3.4-5.0); Sodium 140 mmol/L (137-145)
[2021-05-26] MEDS: FLUTICASONE/SALMETEROL 115-21 MCG INHALER 1 PUFF 2 PUFF INHALATION (08:51)
[2021-05-26] MEDS: POTASSIUM CHLORIDE 20 MEQ TABLET 40 MEQ PO (09:03)
[2021-05-26] MEDS: AMOXICILLIN/CLAVULANATE K 875-125 MG TAB 1 TABLET PO (09:04)
[2021-05-26] MEDS: PANTOPRAZOLE 40 MG TABLET PO (09:04)
[2021-05-26] MEDS: ASPIRIN 81 MG ENTERIC TABLET PO (09:04)
[2021-05-26 12:03] LABS: EDCOVIDSCREEN Negative (Negative)
[2021-05-26 14:36] VITALS: BP 124/57; PULSE 68; RESP 18; TEMP 36.3; O2SAT 99
--- NOTE | 2021-05-26 15:06 | PCNWS ---
Weekly nutritional screen. Patient is tolerating current diet with adequate intake. No weight loss reported. No nutritional needs at this time.
--- NOTE | 2021-05-26 15:14 | PC.NURSE ---
On 05/26/21, the student, Estefany Louise, provided care and completed [facility] documentation on this patient. I have reviewed the student's documentation and agree with the findings.
[2021-05-28 14:20] LABS: Parathyroid Hormone Related Pr 23
== END 2021-05-26 15:25 ==
LOC: ANHED 12:55 → ANH3MEDSUR 13:53
PROVIDERS: Emergency Medicine Emergency Medical Services; Internal Medicine; Internal Medicine Nephrology; Physician Assistant; Admitting Provider Family Medicine; Emergency Provider General Practice; PCP Internal Medicine; Visit Provider Family Medicine
DX: N39.0 Urinary tract infection, site not specified (principal); E86.0 Dehydration; R53.1 Weakness; B96.20 Unspecified Escherichia coli [E. coli] as the cause of diseases classified elsewhere; E03.9 Hypothyroidism, unspecified; E78.00 Pure hypercholesterolemia, unspecified; K21.9 Gastro-esophageal reflux disease without esophagitis; N18.30 Chronic kidney disease, stage 3 unspecified; E83.52 Hypercalcemia; G62.9 Polyneuropathy, unspecified; M48.061 Spinal stenosis, lumbar region without neurogenic claudication; N17.9 Acute kidney failure, unspecified; K22.8 Other specified diseases of esophagus; R29.6 Repeated falls; Z20.822 Contact with and (suspected) exposure to COVID-19; Z96.653 Presence of artificial knee joint, bilateral; Z98.1 Arthrodesis status; Z79.01 Long term (current) use of anticoagulants; Z98.49 Cataract extraction status, unspecified eye; Z96.1 Presence of intraocular lens; Z86.718 Personal history of other venous thrombosis and embolism
CPT/HCPCS: 36415; 51701; 70450; 71045; 72131; 76775; 77075; 78306; 78707; 80053; 80069; 81001; 82306; 82310; 82330; 82550; 82570; 82607; 82652; 82728; 82746; 83519; 83540; 83550; 83690; 83735; 83883; 83970; 84100; 84155; 84165; 84443; 84466; 84484; 84590; 85025; 85027; 85610; 85652; 85730; 86038; 86160; 86162; 86334; 87077; 87086; 87186; 87426; 93005; 94640; 96361; 96365; 96375; 96376; 97110; 97112; 97161; 97165; 97530; 97535; 99285; A9270; A9561; A9562; C9803; G0378; J0696; J2405; J7030

== ENCOUNTER 2022-09-17 19:33 | Observation (INO) | payer MEDICARE, SELFPAY ==
--- NOTE | ~2022-09-17 | XR_ITS ---
EXAMINATION: XR chest 1V portable Exam Date/Time: 09/17/2022 19:50 ADMINISTRATIVE AIDE HISTORY: weakness Comparison: None available. RESULT: Lines, tubes, and devices: Cervical fusion hardware. Lungs and pleura: Low lung volumes with crowding and senescent change. Subsegmental bibasilar opacit ies. No pneumothorax or large effusion. Cardiomediastinal silhouette: Stable. Other: No acute osseous or upper abdominal finding. IMPRESSION: Bibasilar atelectasis/consolidation. Reviewed, dictated and finalized at location K. NISTRATIVE AIDE
--- NOTE | ~2022-09-17 | CT_ITS ---
EXAMINATION: CT brain wo con DATE: 09/17/2022 20:20 INDICATION: syncope . TECHNIQUE: Computed tomography (CT) of the head was performed without intravenous contrast. The mA wa s adjusted according to patient size. Iterative reconstruction technique was employed. The dose-lengt h product was 832.33 mGy-cm. COMPARISON: 05/19/2021. FINDINGS: No acute intracranial hemorrhage or extra-axial fluid collection. No hydrocephalus, mass, or herniation. No acute ischemic infarct. Unremarkable dural venous sinus attenuation. No acute osseous abnormality. Opacification of the left maxillary sinus with surrounding sclerosis. Left ethmoid air cell mucosal t hickening. The remaining aerated spaces are clear. Moderate atrophy and chronic white matter change. Atherosclerotic intracranial calcification. Bilater al lens replacements. IMPRESSION: No acute intracranial process. Chronic left maxillary sinusitis. Reviewed, dictated and finalized at location K. RSIFIED CROPS I FARMWORKER
--- NOTE | 2022-09-17 19:49 | ECG_ITS ---
Measurements Intervals Reeder Rate: 67 P: 35 TX: 192 QRS: -3 QRSD: 76 T: 41 QT: 431 QTc: 456 Interpretive Statements SINUS RHYTHM WITH SINUS ARRHYTHMIA ANTEROSEPTAL INFARCT, AGE INDETERMINATE CONSIDER INFERIOR INFARCT, AGE INDETERMINATE BASELINE ARTIFACT- I, II, AVR, V3-V6 ABNORMAL ECG COMPARED TO ECG 05/19/2021 10:32:29 SINUS ARRHYTHMIA NOW PRESENT Electronically Signed On 09-18-2022 7:15:41 ORDER CLERK by Kam Villareal D.O.
[2022-09-17 20:01] VITALS: BP 94/44; PULSE 68; PULSE 72; RESP 16; TEMP 36.4; O2SAT 96
[2022-09-17 20:06] LABS: Basophils Percent Auto 0.4 % (0.2-1.2); Eosinophils Absolute Auto 0.1 K/mm3 (0-0.3); Eosinophils Percent Auto 1.6 % (0-4.4); Hematocrit 28.1 % (37.0-47.0); Hemoglobin 9.4 g/dL (12.0-15.0); Immature Granulocyte Absolute 0.03 K/mm3 (0.00-0.031); Immature Granulocyte Percent A 0.4 % (0-0.5); Lymphocytes Absolute Auto 1.01 K/mm3 (0.9-3.2); Lymphocytes Percent Auto 12.8 % (18.3-44.2); Mean Corpuscular HGB Conc 33.5 g/dl (32-36); Mean Corpuscular Hemoglobin 35.9 pg (26-34); Mean Corpuscular Volume 107.3 fl (80-100); Mean Platelet Volume 10.1 fl (7.4-10.4); Monocytes Absolute Auto 0.9 K/mm3 (0.1-0.6); Monocytes Percent Auto 11.7 % (2.6-8.5); Neutrophils Absolute Auto 5.8 K/mm3 (1.3-6.7); Neutrophils Percent Auto 73.1 % (45.5-73.1); Platelet Count Result 235 k/mm3 (150-375); Red Blood Count 2.62 M/mm3 (4.2-5.4); Red Cell Distribution Width 13.4 % (11.5-14.5); White Blood Count 7.9 K/mm3 (4.5-10.0)
[2022-09-17 20:17] LABS: Lactic Acid Reflex 1.4 mmol/L (0.7-2.0)
--- NOTE | 2022-09-17 20:36 | ED.GENADULT ---
HPI - General Adult General Chief complaint: Weakness Stated complaint: SYNCOPE, LOW B/P Time Seen by Provider: 09/17/22 19:42 History of Present Illness HPI narrative: Patient 87-year-old female who presents emergency department with chief complaint of low blood pressure and near syncope. Patient presents from a extended care facility after she had several episodes that she got lightheaded whenever she stood up the patient states she gets like this whenever she does not eat or drink much during the day and reports that today she did not drink much fluids. Patient denies fever denies cough denies shortness of breath denies abdominal pain denies vomiting or diarrhea. Related Data Home Medications Medication Instructions Recorded Confirmed multivitamin (Multiple Vitamins 1 tablet PO DAILY 08/08/19 12/20/21 tablet) vitamin B complex 1 cap PO DAILY 08/08/19 12/20/21 vitamin E (dl, acetate) 180 mg 400 unit PO DAILY 08/08/19 12/20/21 (400 unit) capsule aspirin 81 mg tablet,delayed 81 mg PO DAILY 08/14/19 12/20/21 release (Adult Low Dose Aspirin) cranberry 500 mg capsule 500 mg PO BID 08/14/19 12/20/21 timolol 0.5 % eye drops 1 drp EACH EYE Q12H 01/27/21 12/20/21 melatonin 5 mg capsule mg PO 07/05/21 12/20/21 mirtazapine 15 mg tablet 15 mg PO QHS 07/05/21 12/20/21 Allergies Allergy/AdvReac Type Severity Reaction Status Date / Time gatifloxacin Allergy Severe SWELLING Verified 12/20/21 09:41 Sulfa (Sulfonamide Allergy Mild Unknown Verified 12/20/21 09:41 Antibiotics) fexofenadine AdvReac Mild COULDN'T Verified 12/20/21 09:41 SLEEP Review of Systems Review of Systems: A 10 system review of systems was completed on the patient and is negative except for what is stated in the HPI. Nursing and ancillary documentation was reviewed. [facility] Past Medical History Medical History Anxiety Arthritis Axonal polyneuropathy Su's esophagus Brown-Sequard syndrome Chronic kidney disease, stage 3 Gastric ulcer Gastroesophageal reflux disease Glaucoma History of deep venous thrombosis Hypothyroidism Meningioma Pure hypercholesterolemia Tremor Urinary incontinence Surgical History Surgical History History of arthroplasty of left knee (10/05/16) History of arthroplasty of right knee (12/16/15) History of cataract extraction with lens replacement History of colonoscopy with polypectomy History of fusion of cervical spine History of hysterectomy for benign disease History of repair of hiatal hernia Family History Family History Mother Cerebrovascular accident Coronary artery disease Diabetes mellitus Father Patient's father is Social History Social History Social History: The patient lives in assisted living at [facility]. Her of nearly 68 years past in March 2021. Lifelong nonsmoker. She drinks 1 glass of wine a night. No illicit substance use. She has 2 daughters who she designates as her surrogate decision makers. Code status: Full code. Smoking status: Never smoker Exam Narrative: GENERAL: Well-appearing, well-nourished, and in no acute distress. HEAD: Normocephalic, atraumatic. EYES: PERRLA and EOMI. ENT: Nares clear, no rhinorrhea or epistaxis. Mucous membranes moist. NECK: Supple. CHEST: Clear to auscultation. No respiratory distress. HEART: Regular rate and rhythm. No murmur heard. Normal peripheral pulses. ABDOMEN: Soft, nontender, nondistended, normal active bowel sounds. EXTREMITIES: Normal range of motion. No edema. SKIN: Warm, dry, no rash. NEURO: No focal deficits. Alert and oriented x3. PSYCH: Normal mood and affect. Course Vital Signs Vital signs: Vital Signs Temperature 36.4 C 0
[2022-09-17 21:00] VITALS: BP 86/65; PULSE 80; RESP 19; O2SAT 97
[2022-09-17 21:00] LABS: Alanine Aminotransferase 15 U/L (6-35); Albumin Level 3.1 g/dL (3.5-5.1); Alkaline Phosphatase 59 U/L (38-126); Anion Gap 6 mmol/L (8-16); Aspartate Amino Transferase 19 U/L (14-36); Bilirubin,Total 0.1 mg/dL (0.2-1.3); Blood Urea Nitrogen 34 mg/dL (7-17); Calcium 7.7 mg/dL (8.4-10.2); Carbon Dioxide 26 mmol/L (22-30); Chloride 103 mmol/L (98-107); Estimated Glomerular Filt Rate 43; Glucose 114 mg/dL (65-110); Magnesium 2.3 mg/dL (1.6-2.3); NT Pro B Type Natriuretic Pept 581 pg/mL (19.9-100); Potassium 5.4 mmol/L (3.4-5.0); Sodium 135 mmol/L (137-145); Troponin I < 0.012 ng/mL (0.000-0.034)
[2022-09-17 21:02] LABS: Procalcitonin 0.1 ng/mL
[2022-09-17] MEDS: SODIUM CHLORIDE 0.9% IV 1,000 ML 999 ML IV CONT (21:12)
[2022-09-17 21:37] LABS: Mucus Urine Rare /lpf; RBC Urine 0-2 /hpf (0-2); Squamous Epithelial Cell Urine Rare /hpf (Few); WBC Urine 0-3 /hpf
[2022-09-17 21:39] LABS: Add Urine Microscopic? YES; Appearance Urine Clear (Clear); Bilirubin Urine Negative (Negative); Blood Urine Negative (Negative); Color Urine Yellow (Yellow); Glucose Urine UA Negative (Negative); Ketones Urine Negative (Negative); Leukocyte Esterase Ur Negative LEU/UL (Negative); Nitrate Urine Negative (Negative); Protein Urine Trace mg/dL (Negative); Specific Grav Ur 1.015 (1.001-1.035); Urobilinogen Urine 0.2 mg/dL (<2.0); pH Urine 7.5 (5.0-9.0)
[2022-09-17 21:59] LABS: Influenza A QL RT-PCR Negative (Negative); Influenza B QL RT-PCR Negative (Negative); RSV RNA, RT-PCR Negative (Negative); SARS-CoV-2 RNA PCR Negative
[2022-09-17 22:00] VITALS: BP 90/60; PULSE 90; RESP 17; O2SAT 99
[2022-09-17 23:00] VITALS: BP 89/62; PULSE 68; RESP 17; O2SAT 96
[2022-09-18] VITALS (35 sets, daily range): BP systolic 100–185; BP diastolic 48–86; PULSE 64–89; RESP 12–20; TEMP 35.6–36.8; O2SAT 95–100; BMI 34.2
--- NOTE | 2022-09-18 00:31 | PC.NURSE ---
VORB infused 1L NS via IV from EMS
[2022-09-18 01:21] LABS: Troponin I < 0.012 ng/mL (0.000-0.034)
[2022-09-18] MEDS: SODIUM CHLORIDE 0.9% IV 1,000 ML 125 ML IV CONT ×2 (02:42→11:29)
--- NOTE | 2022-09-18 02:52 | PC.NURSE ---
report to MICHAEL Burkett. She assumed care of pt. at this time.
--- NOTE | 2022-09-18 03:55 | PM.IMHP ---
H&P: HPI History of Present Illness Date/Time: 09/18/22 02:40 Chief Complaint: Low blood pressure Narrative: 87-year-old female with past medical history of chronic kidney disease, chronic lung disease, GERD, anemia and prior DVT on chronic anticoagulation who presented to the ER from alf facility due to hypotension. The patient reports that she just was not feeling good and felt tired. The nursing staff at the facility state the patient's blood pressures were 66 systolic and she had 2 different syncopal episodes. The patient is nonambulatory at baseline and only gets up to the wheelchair. The circumstances surrounding her syncopal episodes are not known. The patient states the nursing staff has told her that she passed out. She has not been having any chest pain. She does state that she has felt a little short of breath since she came to the ER. She has not been having any cough or congestion. She states that they wood craftsman all the time that she needs to be drinking more fluids but she just does not feel thirsty. She denies any palpitations. She denies any nausea or vomiting. She states that she has some constipation but her last bowel movement was yesterday. She does not think she has been having any hematochezia or melena. She states that she wishes that she could urinate. She states that she had not urinated as much today as usual. But she states that she feels as if she has to urinate now. In the ER labs the demonstrated normal white count but hemoglobin dropped 2 g compared to April 2021. Megaloblastic anemia was noted with mild acute kidney injury and hyperkalemia and hyponatremia. She was noted to have some apneic spells while sleeping and was having an apneic episode when I entered the room in the ER. Nursing staff had place patient on 2 L nasal cannula due to desaturations with apneic events with sleep. She denies a known history of obstructive sleep apnea. Mildly elevated BNP with no prior comparisons available and a slightly low albumin and total protein with no comparisons available here. The patient reports no lower extremity edema but does have trace edema on exam she states this is where her legs use [facility] because she sits in the wheelchair. She denies any hematochezia, hematemesis or melena. Source of information includes patient report, discussion with ER physician and review of EMS reports. Patient is a good historian. Past medical records were reviewed. Review of Systems Review of Systems: 12 systems were reviewed with pertinent positives and negatives per HPI. Except as documented in the HPI, all other systems were reviewed and are negative. [facility] Past Medical History Medical History (Updated 09/18/22 @ 04:33 by Whit Cruz DO) Anxiety Arthritis Axonal polyneuropathy Su's esophagus Brown-Sequard syndrome Chronic kidney disease, stage 3 Gastric ulcer Gastroesophageal reflux disease Glaucoma History of deep venous thrombosis Hypothyroidism Megaloblastic anemia Normal B12 and folate April 2021 Meningioma Pure hypercholesterolemia Tremor Urinary incontinence Surgical History Surgical History History of arthroplasty of left knee (10/05/16) History of arthroplasty of right knee (12/16/15) History of cataract extraction with lens replacement History of colonoscopy with polypectomy History of fusion of cervical spine History of hysterectomy for benign disease History of repair of hiatal hernia Family History Family History Mother Cerebrovascular accident Coronary artery disease Diabetes mellitus Father Patient's father is Social History Social History (Updated 09/18/22 @ 04:17 by Whit Cruz DO) Social History: The patient lives in assisted living at [facility]. Her of nearly 68 years past in March 2021.
--- NOTE | 2022-09-18 05:18 | PC.NURSE ---
Bill, patients nurse from the [place] calls to get update.
[2022-09-18 05:30] LABS: Hematocrit 32.2 % (37.0-47.0); Hemoglobin 10.2 g/dL (12.0-15.0); Mean Corpuscular HGB Conc 31.7 g/dl (32-36); Mean Corpuscular Hemoglobin 35.1 pg (26-34); Mean Corpuscular Volume 110.7 fl (80-100); Mean Platelet Volume 9.7 fl (7.4-10.4); Platelet Count Result 219 k/mm3 (150-375); Red Blood Count 2.91 M/mm3 (4.2-5.4); Red Cell Distribution Width 13.2 % (11.5-14.5)
[2022-09-18 05:38] LABS: Anion Gap 3 mmol/L (8-16); Blood Urea Nitrogen 28 mg/dL (7-17); Carbon Dioxide 28 mmol/L (22-30); Chloride 110 mmol/L (98-107); Estimated Glomerular Filt Rate 59; Glucose 86 mg/dL (65-110); Lactate Dehydrogenase 167 U/L (120-246); Potassium 4.9 mmol/L (3.4-5.0); Sodium 141 mmol/L (137-145)
[2022-09-18 05:46] LABS: Iron 45 ug/dL (37-170)
[2022-09-18 05:53] LABS: Transferrin 171 mg/dL (206-381)
[2022-09-18 05:56] LABS: Percent Iron Saturation 17 % (20-50)
[2022-09-18 05:59] LABS: Immature Reticulocyte Fraction 12.4 % (3.0-15.9); Reticulocyte Hemoglobin Conten 36.2 pg (28.2-35.7); Reticulocytes Absolute 0.06 B/L (32.2-175.7)
--- NOTE | 2022-09-18 13:25 | PC.NURSE ---
This patient, Meredith España, was admitted to [address] [place] [address] Room 300-01. Patient/family oriented to hospital policies and general routines including ID bracelet, bed and alarms, visiting hours, pain management, procedures, bathroom and other care routines, personal items, smoking policy, room service/diet, and visiting hours. Information on how to activate the Rapid Response Team has been discussed. Patient/Family are encouraged to report perceived risks to care and to ask questions if they do not understand what they are told or what they should do.
--- NOTE | 2022-09-18 15:14 | PM.IMPN ---
Progress Note: A&P Assessment and Plan (1) Hypotension due to hypovolemia: Code(s): I95.89 - Other hypotension; E86.1 - Hypovolemia Status: Acute Assessment and Plan: Patient had 2 episodes of syncope and was hypotensive on arrival to the ER. Hypotension resolved after 1 L fluid from EMS and 1 L fluid bolus in the ER. Patient's blood pressures have normalized. -Hemoglobin about the same as usual so suspect so unlikely to be hypovolemic shock. -No evidence of infection to sepsis seems to be less likely. UA clear. CXR showing atelectasis versus PNA but no cough, fevers or leukocytosis to suggest PNA. Pneumonia felt less likely. -Consider dehydration or medication induced. Medication list still not complete it appears that she is on narcotics which could contribute to this. She is not on diuretics or antihypertensive medications. On mirtazepine which can cause orthostatic HoTN. -Consider endocrinopathy as well. Will check TSH and cortisol level. -Consider undiagnosed SUNITA. She was noted to have apneic spells. Check apnea link (2) Syncope: Qualifiers: Syncope type: unspecified Qualified Code(s): R55 - Syncope and collapse Code(s): R55 - Syncope and collapse Status: Acute Assessment and Plan: [place] related to above (3) Acute worsening of stage 3 chronic kidney disease: Code(s): N18.30 - Chronic kidney disease, stage 3 unspecified Status: Acute Assessment and Plan: Patient does have evidence of acute on chronic kidney disease lending credence to dehydration. Not sure what the post-void bladder scan results showed. Cr better with IV fluids. Will stop IV fluids. (4) Dehydration: Code(s): E86.0 - Dehydration Status: Acute Assessment and Plan: As above (5) Acute on chronic anemia: Code(s): D64.9 - Anemia, unspecified Status: Acute Assessment and Plan: hgb mostly in the 10-11 range. Hgb was 9.4 but up to 10.2 today desite IV fluids. Suspect she is close to baseline. Iron studies noted and more likely anemia of chronic disease. Check b12/folate to be complete. Subjective Date/time seen: 09/18/22 15:14 Interval history: 87yo female with CKD, chronic lung disease, anemia and prior DVT on chronic anticoagulation who [facility].?? No chest pain or shortness of breath. No nausea or vomiting. No diarrhea but feels dehydrated. She states that she has had frequent hospitalizations due to hypotension without clear etiology that she is aware of. Exam Narrative: AF 145/48 78 18 98% ra Gen - NARD Chest -bibasilar inspiratory crackles. Normal respiratory rate. CV - RRR S1/S2 Abd - Soft, ND, mild diffuse tenderness, +BS Ext - bilateral 1+ pedal edema Psych - Nml mood and affect. AOx4. Skin - Warm and dry Objective Data Vital Signs Vital Signs: Vital Signs - 24 hr 09/17/22 20:01 09/17/22 20:01 09/18/22 00:30 Temperature 97.6 F 97.9 F Pulse Rate 68 72 82 Respiratory Rate 16 14 Blood Pressure 94/44 L 135/53 L Pulse Oximetry 96 98 Oxygen Delivery Room Air Oxygen Flow Rate 09/17/22 21:00 09/17/22 22:00 09/17/22 23:00 Temperature Pulse Rate 80 90 68 Respiratory Rate 19 17 17 Blood Pressure 86/65 L 90/60 L 89/62 L Pulse Oximetry 97 99 96 Oxygen Delivery Oxygen Flow Rate 09/18/22 01:00 09/18/22 02:51 09/18/22 02:50 Temperature Pulse Rate 78 88 Respiratory Rate 14 18 Blood Pressure 100/60 108/53 L Pulse Oximetry 96 100 99 Oxygen Delivery Nasal Cannula Oxygen Flow Rate 2 09/18/22 02:38 09/18/22 02:45 09/18/22 03:00 Temperature Pulse Rate 89 87 80 Respiratory Rate 16 15 13 Blood Pressure Pulse Oximetry 100 100 100 Oxygen Delivery Oxygen Flow Rate 09/18/22 03:15 09/18/22 03:30 09/18/22 03:45 Temperature Pulse Rate 75 76 75 Respiratory Rate 14 14 13 Blood Pressure Pul
[2022-09-18] MEDS: ACETAMINOPHEN 325 MG TABLET 650 MG PO (17:37)
[2022-09-18] MEDS: MELATONIN 5 MG TABLET PO (23:39)
[2022-09-19] VITALS: PULSE 71
[2022-09-19 04:00] VITALS: PULSE 68
[2022-09-19] MEDS: LEVOTHYROXINE SODIUM 88 MCG TABLET PO (05:27)
--- NOTE | 2022-09-19 05:50 | PCRCNOTE ---
patient was on room air for the apnea study
[2022-09-19 06:00] VITALS: BP 151/61; PULSE 77; RESP 16; TEMP 35.7; O2SAT 97
[2022-09-19 07:46] LABS: Anion Gap 5 mmol/L (8-16); Blood Urea Nitrogen 18 mg/dL (7-17); Calcium 8.2 mg/dL (8.4-10.2); Carbon Dioxide 22 mmol/L (22-30); Chloride 112 mmol/L (98-107); Estimated Glomerular Filt Rate > 60; Glucose 86 mg/dL (65-110); Potassium 4.1 mmol/L (3.4-5.0); Sodium 139 mmol/L (137-145)
[2022-09-19 07:58] LABS: Basophils Percent Auto 0.5 % (0.2-1.2); Eosinophils Absolute Auto 0.2 K/mm3 (0-0.3); Hematocrit 28.9 % (37.0-47.0); Hemoglobin 9.4 g/dL (12.0-15.0); Immature Granulocyte Absolute 0.02 K/mm3 (0.00-0.031); Immature Granulocyte Percent A 0.4 % (0-0.5); Lymphocytes Absolute Auto 1.05 K/mm3 (0.9-3.2); Lymphocytes Percent Auto 18.5 % (18.3-44.2); Mean Corpuscular HGB Conc 32.5 g/dl (32-36); Mean Corpuscular Hemoglobin 35.9 pg (26-34); Mean Corpuscular Volume 110.3 fl (80-100); Mean Platelet Volume 10.2 fl (7.4-10.4); Monocytes Absolute Auto 0.7 K/mm3 (0.1-0.6); Monocytes Percent Auto 12.5 % (2.6-8.5); Neutrophils Absolute Auto 3.6 K/mm3 (1.3-6.7); Neutrophils Percent Auto 64.1 % (45.5-73.1); Platelet Count Result 226 k/mm3 (150-375); Red Blood Count 2.62 M/mm3 (4.2-5.4); Red Cell Distribution Width 13.2 % (11.5-14.5); White Blood Count 5.7 K/mm3 (4.5-10.0)
[2022-09-19 08:00] VITALS: PULSE 77
[2022-09-19] MEDS: VITAMIN B COMPLEX CAPSULE 1 CAP PO (08:30)
[2022-09-19] MEDS: GABAPENTIN 300 MG CAPSULE PO ×2 (08:30→14:14)
[2022-09-19] MEDS: ASPIRIN 81 MG ENTERIC TABLET PO (08:31)
[2022-09-19] MEDS: PRIMIDONE 250 MG TABLET PO (08:31)
[2022-09-19] MEDS: APIXABAN 5 MG TABLET PO (08:31)
[2022-09-19] MEDS: BRIMONIDINE TARTRATE 0.2% OP SOLN 5 ML BTL 1 DROP EACH EYE ×2 (08:31→18:10)
[2022-09-19] MEDS: PANTOPRAZOLE 40 MG TABLET PO (08:31)
[2022-09-19] MEDS: CITALOPRAM HYDROBROMIDE 10 MG TABLET PO (08:31)
[2022-09-19] MEDS: SIMVASTATIN 10 MG TABLET PO (08:31)
[2022-09-19 08:53] LABS: Folic Acid > 20.0 ng/mL (2.76->20)
[2022-09-19 10:09] LABS: Total Triiodothyronine (T3) 1.27 NG/ML (0.97-1.69)
[2022-09-19 12:00] VITALS: PULSE 70
--- NOTE | 2022-09-19 13:29 | PM.DS ---
DS: Admitting Diagnosis Discharge Date 09/19/22 Admitting Diagnosis Low blood pressure DS: Discharge Diagnosis Discharge Diagnosis (1) Hypotension due to hypovolemia: Code(s): I95.89 - Other hypotension; E86.1 - Hypovolemia Status: Acute (2) Syncope: Qualifiers: Syncope type: unspecified Qualified Code(s): R55 - Syncope and collapse Code(s): R55 - Syncope and collapse Status: Acute (3) Acute worsening of stage 3 chronic kidney disease: Code(s): N18.30 - Chronic kidney disease, stage 3 unspecified Status: Acute (4) Dehydration: Code(s): E86.0 - Dehydration Status: Acute (5) Acute on chronic anemia: Code(s): D64.9 - Anemia, unspecified Status: Acute DS: Summary Hospital Course Reason for hospitalization: 87yo female with CKD, chronic lung disease, anemia and prior DVT on chronic anticoagulation who [facility] the [facility] from [facility] due to hypotension.??Please see H&P for details Hospital Course: Patient had 2 episodes of syncope and was hypotensive on arrival to the ER.? Hypotension resolved after 1 L fluid from EMS and 1 L fluid bolus in the ER.? Patient's blood pressures have normalized.?Hemoglobin was 9-10 and stable so unlikely to be hypovolemic shock.?No evidence of infection so sepsis felt unlikely.? UA clear. CXR showing atelectasis versus PNA but no cough, fevers or leukocytosis to suggest PNA.?Consider dehydration or medication induced. Medication list noted and it appears that she is on narcotics which could contribute to this.? She is not on diuretics or antihypertensive medications.? On mirtazapine which can cause orthostatic HoTN so this was not continued. TSH elevated at 13 but FT4 normal. Cortisol level normal. Consider undiagnosed SUNITA. She was noted to have apneic spells. Apnea link showing AHI 30 and RI 33. Will need official sleep study after discharge. Patient does have evidence of acute on chronic kidney disease lending credence to dehydration. Post-void bladder volume about 180mL. Cr better with IV fluids. She overall did well and was able to be discharged back to longterm 09/19/22. Discussed with dtr at bedside. She provides a brain MRI report showing ventriculomegaly. Meningioma noted and felt to be chronic. Recommended the patient to follow up with her neurologist to discuss these results. Status at Discharge Cognitive/behavioral status at discharge: Stable Time Spent with Patient Time attestation: Total time spent providing and/or coordinating discharge services:38 minutes Time spent: Greater than 30 minutes Exam Narrative: AF 151/61 77 16 97% ra Gen - NARD Chest - few bibasilar inspiratory crackles. Normal respiratory rate. CV - RRR S1/S2. Tele showing no significant dysrhythmias Abd - Soft, ND, NT, +BS Ext - trace pedal edema Psych - Nml mood and affect. Skin - Warm and dry DS: Data Data Completed and Pending Labs on day of discharge: Labs from last 24 hours 09/19/22 09/19/22 09/19/22 06:03 06:03 06:03 WBC RBC Hgb Hct MCV MCH MCHC RDW Plt Count MPV Immature Gran % (Auto) Neut % (Auto) Lymph % (Auto) Nelson % (Auto) Eos % (Auto) Baso % (Auto) Lymph # (Auto) Nelson # (Auto) Eos # (Auto) Baso # (Auto) Abs Immat Gran (auto) Absolute Neuts (auto) Absolute Nucleated RBC Nucleated RBC % Sodium Potassium Chloride Carbon Dioxide Anion Gap BUN Creatinine Estim Creat Clear Calc Estimated GFR Glucose Calcium Vitamin B12 Folate TSH (Reflex) Free T4 1.20 Total T3 1.27 Random Cortisol 17.80 09/19/22 09/19/22 09/19/22 06:03 06:03 06:03 WBC 5.7 RBC 2.62 L Hgb 9.4 L Hct 28.9 L MCV 110.3 H MCH 35.9 H MCHC 32.5 RDW 13.2 Plt Count 226 MPV 10.2 Immature Gran % (Auto) 0.4 Neut % (Auto) 64.1 Lymph % (A
[2022-09-19 14:00] VITALS: BP 161/75; PULSE 69; RESP 16; TEMP 36.4; O2SAT 99
[2022-09-19] MEDS: ACETAMINOPHEN 325 MG TABLET 650 MG PO (14:13)
[2022-09-19 14:43] LABS: EDCOVIDSCREEN Negative (Negative)
== END 2022-09-19 18:25 ==
LOC: ANHED 09-18 01:01 → ANH3MEDSUR 09-18 03:58
PROVIDERS: Admitting Provider Internal Medicine; Emergency Provider Emergency Medicine; PCP Internal Medicine; Visit Provider Internal Medicine
DX: I95.89 Other hypotension (principal); R55 Syncope and collapse; N18.30 Chronic kidney disease, stage 3 unspecified; E86.0 Dehydration; D64.9 Anemia, unspecified; R94.31 Abnormal electrocardiogram [ECG] [EKG]; F41.9 Anxiety disorder, unspecified; G62.9 Polyneuropathy, unspecified; G83.81 Brown-Sequard syndrome; R06.02 Shortness of breath; Z20.822 Contact with and (suspected) exposure to COVID-19; K25.9 Gastric ulcer, unspecified as acute or chronic, without hemorrhage or perforation; K21.9 Gastro-esophageal reflux disease without esophagitis; H40.9 Unspecified glaucoma; E03.9 Hypothyroidism, unspecified; E78.00 Pure hypercholesterolemia, unspecified; F10.90 Alcohol use, unspecified, uncomplicated; Z86.718 Personal history of other venous thrombosis and embolism; Z79.82 Long term (current) use of aspirin; Z79.899 Other long term (current) drug therapy
CPT/HCPCS: 36415; 51701; 70450; 71045; 80048; 80053; 81001; 82533; 82607; 82728; 82746; 83540; 83550; 83605; 83615; 83735; 83880; 84145; 84439; 84443; 84466; 84480; 84484; 85025; 85027; 85046; 87426; 87637; 93005; 94762; 96360; 99285; A9270; C9803; G0378; J7030

== ENCOUNTER 2022-11-05 12:39 | Observation (INO) | payer MEDICARE, SELFPAY ==
[2022-11-05] VITALS (14 sets, daily range): BP systolic 109–164; BP diastolic 51–96; PULSE 65–86; RESP 13–19; TEMP 36.4–37; O2SAT 96–100; BMI 33.8; BMI 34.4
--- NOTE | ~2022-11-05 | CT_ITS ---
EXAMINATION: CT brain wo con DATE: 11/05/2022 13:21 INDICATION: Lightheadedness. Presyncopal episode. TECHNIQUE: Computed tomography (CT) of the head was performed without intravenous contrast. Sagittal and coronal reconstructions were performed. The mA was adjusted according to patient size. Iterative reconstruction technique was employed. The dose-length product was 605.33 mGy-cm. COMPARISON: head CT dated 09/17/2022 and brain MR dated 08/30/2017 FINDINGS: No acute intracranial hemorrhage, acute infarction or abnormal extra axial fluid collection. There is moderate scattered white matter hypoattenuation consistent with chronic small vessel ischemic diseas e. Symmetric prominence of the sulci and ventricles consistent with mild age-appropriate diffuse cere bral volume loss. No significant interval change since the prior MRI in approximately 11 mm extra-axi al mass near the midline along the inferior anterior frontal lobes most consistent with a meningioma. No other abnormal masses identified. Changes of bilateral intraocular lens replacement. The orbits a nd mastoid air cells are normal. Unchanged complete opacification of the left maxillary sinus. There is sclerotic wall thickening at the right maxillary sinus consistent with an earlier chronic sinusiti s. IMPRESSION: 1. No acute intracranial process. 2. Chronic 11 mm extra-axial mass inferior to the frontal lobes at the midline consistent with mening ioma. 3. Age-related changes including mild diffuse volume loss and moderate scattered white matter hypoatt enuation consistent with chronic small vessel ischemic disease. Reviewed, dictated and finalized at location A. L ASSISTANT MANAGER IMPRESSION: 1. No acute intracranial process. 2. Chronic 11 mm extra-axial mass inferior to the frontal lobes at the midline consistent with meningioma. 3. Age-related changes including mild diffuse volume loss and moderate scattere d white matter hypoattenuation consistent with chronic small vessel ischemic di sease.
--- NOTE | ~2022-11-05 | XR_ITS ---
EXAMINATION: XR chest 1V portable DATE: 11/05/2022 13:12 INDICATION: Syncope TECHNIQUE: frontal view of the chest was obtained. COMPARISON: Chest radiograph dated 09/17/2022 FINDINGS: Mild streaky left basilar atelectasis. No pulmonary edema, pleural effusion or pneumothorax. The card iomediastinal silhouette is normal. Instrumented anterior spinal fusion in the lower cervical spine. IMPRESSION: 1. Mild streaky left basilar atelectasis. Reviewed, dictated and finalized at location A. MATIC HEMMER
--- NOTE | 2022-11-05 12:46 | ECG_ITS ---
Measurements Intervals [place] Rate: 64 P: 26 SC: 205 QRS: 2 QRSD: 80 T: 49 QT: 415 QTc: 428 Interpretive Statements SINUS RHYTHM LEFT VENTRICULAR HYPERTROPHY ANTEROSEPTAL INFARCT, AGE INDETERMINATE CONSIDER INFERIOR INFARCT, AGE INDETERMINATE BASELINE ARTIFACT- I, II, III, AVR, AVL, AVF, V3-V4 ABNORMAL ECG COMPARED TO ECG 09/17/2022 19:45:01 NO SIGNIFICANT CHANGES Electronically Signed On 11-05-2022 17:08:32 SWITCHBOX ASSEMBLER by Kam Villareal D.O.
--- NOTE | 2022-11-05 13:03 | ED.GENADULT ---
HPI - General Adult General Chief complaint: Weakness Stated complaint: Near syncope Time Seen by Provider: 11/05/22 12:58 Source: EMS and RN notes reviewed History of Present Illness HPI narrative: Patient presents emergency department from [facility] via EMS for near syncopal episode. Patient states that this morning she had 2 episodes where she became dizzy and lightheaded when they gotten her up trying to get her dressed. Patient states she did feel better both times and she laid back down. States she has been feeling generally weak over the past several days. She is unsure if she had a full syncopal episode she denies any chest pain or shortness of breath denies any abdominal pain. States she did not have any falls. Patient denies any pain at this time. She does state that she has been having some difficulties with her left eye for the past 6 weeks and this has been evaluated and worked up with some mild redness of her left eye Related Data Home Medications Medication Instructions Recorded Confirmed multivitamin (Multiple Vitamins 1 tablet PO DAILY 08/08/19 09/18/22 tablet) vitamin B complex 1 cap PO DAILY 08/08/19 09/18/22 vitamin E (dl, acetate) 180 mg 400 unit PO DAILY 08/08/19 09/18/22 (400 unit) capsule aspirin 81 mg tablet,delayed 81 mg PO DAILY 08/14/19 09/18/22 release (Adult Low Dose Aspirin) cranberry 500 mg capsule 500 mg PO BID 08/14/19 09/18/22 timolol 0.5 % eye drops 1 drp EACH EYE Q12H 01/27/21 09/18/22 melatonin 5 mg capsule 5 mg PO HS PRN Insomnia 07/05/21 09/18/22 acetaminophen 650 mg tablet 650 mg PO Q6H PRN Pain 09/18/22 09/18/22 apixaban 5 mg tablet (Eliquis) 5 mg PO BID 09/18/22 09/18/22 brimonidine 0.2 % eye drops 1 drp EACH EYE BID 09/18/22 09/18/22 citalopram 10 mg tablet 10 mg PO DAILY 09/18/22 09/18/22 fluticasone furoate 100 1 inh inhalation DAILY 09/18/22 09/18/22 mcg-vilanterol 25 mcg/dose inhalation powder (Breo Ellipta) gabapentin 300 mg capsule 300 mg PO TID 09/18/22 09/18/22 latanoprost 0.005 % eye drops 1 drp EACH EYE HS 09/18/22 09/18/22 primidone 250 mg tablet 250 mg PO DAILY 09/18/22 09/18/22 simvastatin 10 mg tablet 10 mg PO DAILY 09/18/22 09/18/22 calcium carbonate 300 mg (750 mg) 300 mg PO DAILY 09/19/22 09/19/22 chewable tablet (Tums) cholecalciferol (vitamin D3) 25 25 mcg PO DAILY 09/19/22 09/19/22 mcg (1,000 unit) tablet guaifenesin 100 mg/5 mL oral liquid 100 mg PO Q6H PRN Cough 09/19/22 09/19/22 polyethylene glycol 3350 17 gram 17 g PO DAILY PRN Constipation 09/19/22 09/19/22 oral powder packet sennosides 8.6 mg-docusate sodium 2 tab-cap PO BID 09/19/22 09/19/22 50 mg tablet (Senna with Docusate Sodium) tobramycin 0.3 %-dexamethasone 0.1 3 drp LEFT EYE QID 09/19/22 09/19/22 % eye drops,suspension (TobraDex) Allergies Allergy/AdvReac Type Severity Reaction Status Date / Time gatifloxacin Allergy Severe SWELLING Verified 11/05/22 12:50 Sulfa (Sulfonamide Allergy Mild Unknown Verified 11/05/22 12:50 Antibiotics) fexofenadine AdvReac Mild COULDN'T Verified 11/05/22 12:50 SLEEP Review of Systems Review of Systems: Gen.: Denies fevers or chills Eyes: See HPI ENT: Denies congestion Respiratory: Denies shortness of breath or cough CV: Reports near syncope GI: Denies abdominal pain nausea, emesis or diarrhea Musculoskeletal: Denies back pain or muscle pain Neuro: D reports weakness Skin: Denies rash Except as documented, all other systems reviewed and negative PMFSH Past Medical History Medical History Anxiety Arthritis Axonal polyneuropathy Su's esophagus Brown-Sequard syndrome Chronic kidney disease, stage 3 Gastric ulcer Gastroesophageal reflux disease Glaucoma History of deep venous thrombosis Hypothyroidism Megaloblastic anemia Normal B12 and folate April 2021 Meningioma Pure hypercholesterolemia Tremor Urinary incontinence Surgical History Surgical History
[2022-11-05 13:31] LABS: Basophils Percent Auto 0.5 % (0.2-1.2); Eosinophils Absolute Auto 0.2 K/mm3 (0-0.3); Eosinophils Percent Auto 3.6 % (0-4.4); Hemoglobin 11.4 g/dL (12.0-15.0); Immature Granulocyte Absolute 0.03 K/mm3 (0.00-0.031); Immature Granulocyte Percent A 0.5 % (0-0.5); Lymphocytes Absolute Auto 0.83 K/mm3 (0.9-3.2); Lymphocytes Percent Auto 14.4 % (18.3-44.2); Mean Corpuscular HGB Conc 31.7 g/dl (32-36); Mean Corpuscular Hemoglobin 35.4 pg (26-34); Mean Corpuscular Volume 111.8 fl (80-100); Mean Platelet Volume 10.1 fl (7.4-10.4); Monocytes Absolute Auto 0.6 K/mm3 (0.1-0.6); Monocytes Percent Auto 10.9 % (2.6-8.5); Neutrophils Percent Auto 70.1 % (45.5-73.1); Platelet Count Result 260 k/mm3 (150-375); Red Blood Count 3.22 M/mm3 (4.2-5.4); Red Cell Distribution Width 14.3 % (11.5-14.5); White Blood Count 5.8 K/mm3 (4.5-10.0)
[2022-11-05] MEDS: SODIUM CHLORIDE 0.9% IV 1,000 ML 999 ML IV CONT (13:31)
[2022-11-05 13:42] LABS: Alanine Aminotransferase 21 U/L (6-35); Alkaline Phosphatase 71 U/L (38-126); Anion Gap 4 mmol/L (8-16); Aspartate Amino Transferase 26 U/L (14-36); Bilirubin,Total 0.3 mg/dL (0.2-1.3); Blood Urea Nitrogen 23 mg/dL (7-17); Calcium 8.6 mg/dL (8.4-10.2); Carbon Dioxide 27 mmol/L (22-30); Chloride 99 mmol/L (98-107); Estimated Glomerular Filt Rate 53; Glucose 101 mg/dL (65-110); Magnesium 2.2 mg/dL (1.6-2.3); Sodium 130 mmol/L (137-145)
[2022-11-05 13:44] LABS: INR 1.2; Prothrombin Time 14.7 Seconds (11.1-14.7)
[2022-11-05 13:45] LABS: Partial Thromboplastin Time 37.3 SECONDS (22.3-36.8)
[2022-11-05 13:54] LABS: Troponin I < 0.012 ng/mL (0.000-0.034)
[2022-11-05 14:07] LABS: Appearance Urine Turbid (Clear); Bacteria Urine 3+ /hpf; Bilirubin Urine Negative (Negative); Blood Urine 1+ (Negative); Color Urine Yellow (Yellow); Glucose Urine UA Negative (Negative); Ketones Urine Negative (Negative); Leukocyte Esterase Ur 3+ LEU/UL (Negative); Need Manual Microscopic Reviewed; Nitrate Urine Negative (Negative); Protein Urine Negative (Negative); RBC Urine 0-2 /hpf (0-2); Squamous Epithelial Cell Urine None seen /hpf (Few); Urobilinogen Urine 0.2 mg/dL (<2.0); WBC Urine >100 /hpf; pH Urine 7.5 (5.0-9.0)
[2022-11-05 14:07] LABS: Influenza A QL RT-PCR Negative (Negative); Influenza B QL RT-PCR Negative (Negative); SARS-CoV-2 RNA PCR Negative
[2022-11-05 14:10] LABS: Add Urine Microscopic? YES
--- NOTE | 2022-11-05 14:35 | PM.IMHP ---
H&P: HPI History of Present Illness Date/Time: 11/05/22 14:35 Chief Complaint: Weakness Narrative: This is an 87-year-old female patient who comes from his prison and [place]. The patient came to the emergency room today for a near syncopal episode. The patient had 2 episodes this morning where she felt dizzy and lightheaded. This occurred when she had gotten up trying to get dressed. The patient did not feel well and laid back down both times. She denied any chest pain or palpitations. She denied any abdominal pain. She did not have any falls. No nausea vomiting diarrhea or fever. The patient stated that she has been having a lot of drainage with her left eye and has been taking eyedrops for that the last 6 weeks. Her H&H is 11.4 and 36.0 which is above her average baseline. The patient could possibly be dehydrated. Sodium is 130. Her urine is turbid with 1+ blood and 3+ leukocyte esterase, and 3+ bacteria.. She was negative for influenza A/B and COVID. She was given normal saline, Rocephin and Tylenol in the emergency room. The patient is being admitted to observation status on the date of service of 11/05/2022. Review of Systems Review of Systems: See HPI All systems reviewed & are unremarkable except as noted in HPI and below Constitutional: Constitutional: Reports as per HPI and Reports no additional constitutional complaints Eyes: Eyes: Reports as per HPI and Reports no additional eye complaints ENT: Reports system reviewed and no additional complaints, except as documented and Reports Normal hearing present Cardiovascular: Cardiovascular: Reports no additional cardiovascular complaints Respiratory: Respiratory: Reports no additional respiratory complaints and Reports no additional respiratory complaints Gastrointestinal: Gastrointestinal: Reports as per HPI and Reports no additional gastrointestinal complaints Musculoskeletal: Musculoskeletal: Reports no additional musculoskeletal complaints Integumentary/Breasts: Skin/Breast: Reports system reviewed and no additional complaints, except as docu and Reports as per HPI Neurologic: Reports system reviewed and no additional complaints, except as documented, Reports as per HPI and Reports Normal hearing present Psychiatric: Psychiatric: Reports no additional psychiatric complaints and Reports as per HPI Endocrine: Endocrine: Reports no additional endocrine complaints Hematologic/Lymphatic: Hematologic/Lymphatic: Reports no additional hematologic/lymphatic complaints Allergic/Immunologic: Allergic/Immunologic: Reports no additional allergic/immunologic complaints [facility] Past Medical History Medical History (Updated 11/05/22 @ 20:05 by Earlene Schrader NP) Anxiety Arthritis Axonal polyneuropathy Su's esophagus Brown-Sequard syndrome Chronic anticoagulation Chronic kidney disease, stage 3 Gastric ulcer Gastroesophageal reflux disease Glaucoma History of deep venous thrombosis Hypothyroidism Megaloblastic anemia Normal B12 and folate April 2021 Meningioma Pure hypercholesterolemia Tremor Urinary incontinence Surgical History Surgical History (Updated 11/05/22 @ 19:46 by Earlene Schrader NP) History of appendectomy History of arthroplasty of left knee (10/05/16) History of arthroplasty of right knee (12/16/15) History of cataract extraction with lens replacement History of colonoscopy with polypectomy History of fusion of cervical spine History of hysterectomy for benign disease History of repair of hiatal hernia Family History Family History Mother Coronary artery disease Cerebrovascular accident Patient's father is Father Patient's father is Social History Social History (Updated 11/05/22 @ 19:47 by Earlene Schrader NP) Social History: She is from [facility] in [place] . Her of nearly 68 years past in March 2021.
[2022-11-05 15:16] LABS: Lactic Acid Reflex 1.3 mmol/L (0.7-2.0)
[2022-11-05] MEDS: SODIUM CHLORIDE 0.9% IV 1,000 ML 100 ML IV CONT (15:58)
--- NOTE | 2022-11-05 16:12 | ADMGEN ---
This patient, Meredith España, was admitted to [facility] Surg Room 326-01. Patient/family oriented to hospital policies and general routines including ID bracelet, bed and alarms, visiting hours, pain management, procedures, bathroom and other care routines, personal items, smoking policy, room service/diet, and visiting hours. Information on how to activate the Rapid Response Team has been discussed. Patient/Family are encouraged to report perceived risks to care and to ask questions if they do not understand what they are told or what they should do. Report from Izzy in the ED.
[2022-11-05] MEDS: ACETAMINOPHEN 325 MG TABLET 650 MG PO (17:49)
[2022-11-05] MEDS: GABAPENTIN 300 MG CAPSULE PO (21:52)
[2022-11-05] MEDS: SENNA/DOCUSATE SODIUM TABLET 2 TAB PO (21:53)
[2022-11-05] MEDS: TOPIRAMATE 25 MG TABLET 50 MG PO (21:54)
[2022-11-05] MEDS: APIXABAN 5 MG TABLET PO (21:54)
[2022-11-05] MEDS: LATANOPROST 0.005% OP SOLN 2.5 ML BTL 1 DROP EACH EYE (21:55)
[2022-11-05] MEDS: BRIMONIDINE TARTRATE 0.2% OP SOLN 5 ML BTL 1 DROP EACH EYE (21:55)
[2022-11-05] MEDS: POLYMYXIN/TRIMETHOPRIM OPHTH 10 ML DROPS 1 DROP EACH EYE (21:55)
[2022-11-05] MEDS: MELATONIN 3 MG TABLET PO (21:58)
[2022-11-05] MEDS: guaiFENesin 200 MG/10 ML UDC 100 MG PO (22:00)
--- NOTE | 2022-11-06 03:03 | PC.NURSE ---
Daylight Savings Time For Daylight Savings Time Ending in the Fall - Clocks are moved back. For Daylight Savings Time Beginning in the Spring - Clocks are moved ahead. For [facility], the time of change occurs at 0200 hrs. Time is taken from the ware server. This entry on the patient's chart recognizes the change in time reflected during documentation. Example: 2 entries for vital signs may be charted for 0200 hrs.
[2022-11-06 06:00] VITALS: BP 142/70; PULSE 73; RESP 18; TEMP 36.4; O2SAT 98
[2022-11-06] MEDS: SODIUM CHLORIDE 0.9% IV 1,000 ML 100 ML IV CONT (06:04)
[2022-11-06] MEDS: POLYMYXIN/TRIMETHOPRIM OPHTH 10 ML DROPS 1 DROP EACH EYE ×5 (06:05→20:12)
[2022-11-06] MEDS: LEVOTHYROXINE SODIUM 88 MCG TABLET PO (06:05)
--- NOTE | 2022-11-06 06:32 | PC.NURSE ---
Pt received start of shift with 2L NC- changed per RT who spoke to this nurse. Cont pulse ox to forehead. Replaced and fixed the pulse ox and oxygen tubing several times during the shift. Nonproductive cough. Pt slips down and bed , cannot move self up nor turn self to side per self. BP low, notified Hospitalist Dr. Horner- gave midodrine 15mg po one time order which minimally improved BP See VS flowsheet. Pt with chronic pain, - multiple locations - given ultram x1 , then refused ultram this am at 0500. Melatonin helped pt get some sleep. PD continued all night. Pt states she lives alone and has state issued caregiver few hours a day . Plan for SNIF after discharge
[2022-11-06 07:03] LABS: Basophils Percent Auto 0.8 % (0.2-1.2); Eosinophils Absolute Auto 0.2 K/mm3 (0-0.3); Eosinophils Percent Auto 4.5 % (0-4.4); Hematocrit 31.5 % (37.0-47.0); Immature Granulocyte Absolute 0.03 K/mm3 (0.00-0.031); Immature Granulocyte Percent A 0.6 % (0-0.5); Lymphocytes Absolute Auto 1.08 K/mm3 (0.9-3.2); Mean Corpuscular HGB Conc 31.7 g/dl (32-36); Mean Corpuscular Hemoglobin 34.2 pg (26-34); Mean Corpuscular Volume 107.9 fl (80-100); Mean Platelet Volume 9.9 fl (7.4-10.4); Monocytes Absolute Auto 0.7 K/mm3 (0.1-0.6); Monocytes Percent Auto 13.2 % (2.6-8.5); Neutrophils Absolute Auto 2.9 K/mm3 (1.3-6.7); Neutrophils Percent Auto 58.9 % (45.5-73.1); Platelet Count Result 218 k/mm3 (150-375); Red Blood Count 2.92 M/mm3 (4.2-5.4); White Blood Count 4.9 K/mm3 (4.5-10.0)
[2022-11-06 07:08] LABS: Alanine Aminotransferase 19 U/L (6-35); Albumin Level 3.5 g/dL (3.5-5.1); Alkaline Phosphatase 65 U/L (38-126); Anion Gap 4 mmol/L (8-16); Aspartate Amino Transferase 22 U/L (14-36); Bilirubin,Total 0.3 mg/dL (0.2-1.3); Blood Urea Nitrogen 17 mg/dL (7-17); Calcium 8.5 mg/dL (8.4-10.2); Carbon Dioxide 23 mmol/L (22-30); Chloride 110 mmol/L (98-107); Estimated Glomerular Filt Rate > 60; Glucose 85 mg/dL (65-110); Potassium 4.5 mmol/L (3.4-5.0); Sodium 137 mmol/L (137-145)
[2022-11-06 07:56] LABS: Platelet Estimate Adequate (Adequate)
[2022-11-06 08:01] LABS: Tear Drop Cells 1+ (NORMAL)
[2022-11-06 08:02] LABS: Anisocytosis 1+ (NORMAL); Poikilocytosis 1+ (NORMAL); Schistocytes Rare (NORMAL)
[2022-11-06] MEDS: SIMVASTATIN 10 MG TABLET PO (08:18)
[2022-11-06] MEDS: APIXABAN 5 MG TABLET PO ×2 (08:18→20:12)
[2022-11-06] MEDS: MULTIVITAMINS THERAPEUTIC TAB (*BKC) 1 TABLET PO (08:18)
[2022-11-06] MEDS: VITAMIN B COMPLEX CAPSULE 1 CAP PO (08:18)
[2022-11-06] MEDS: ASPIRIN 81 MG ENTERIC TABLET PO (08:18)
[2022-11-06] MEDS: GABAPENTIN 300 MG CAPSULE PO ×3 (08:18→16:49)
[2022-11-06] MEDS: PRIMIDONE 250 MG TABLET PO (08:18)
[2022-11-06] MEDS: CHOLECALCIFEROL 1,000 UNITS TABLET 1000 UNITS PO (08:18)
[2022-11-06] MEDS: SENNA/DOCUSATE SODIUM TABLET 2 TAB PO ×2 (08:18→16:49)
[2022-11-06] MEDS: CALCIUM CARBONATE (TUMS) 500 MG (200 MG ELEMENTAL) PO (08:18)
[2022-11-06] MEDS: TOPIRAMATE 25 MG TABLET 50 MG PO ×2 (08:18→16:49)
[2022-11-06] MEDS: CITALOPRAM HYDROBROMIDE 10 MG TABLET PO (08:18)
[2022-11-06] MEDS: BRIMONIDINE TARTRATE 0.2% OP SOLN 5 ML BTL 1 DROP EACH EYE ×2 (08:19→20:12)
[2022-11-06] MEDS: TIMOLOL MALEATE 0.5% OP SOLN 5 ML BOTTLE 1 DROP EACH EYE (08:19)
[2022-11-06] MEDS: PANTOPRAZOLE 40 MG TABLET PO (08:19)
--- NOTE | 2022-11-06 11:42 | PM.IMPN ---
Progress Note: A&P Assessment and Plan (1) Near syncope: Code(s): R55 - Syncope and collapse Status: Acute Assessment and Plan: Could be related to dehydration -could be related to UTI Continue on telemetry Check orthostatic blood pressure (2) Acute UTI: Code(s): N39.0 - Urinary tract infection, site not specified Status: Acute Assessment and Plan: Blood and urine cultures pending Continue with Rocephin Tailor antibiotics to results of cultures and sensitivities. (3) Acute on chronic anemia: Code(s): D64.9 - Anemia, unspecified Status: Acute Assessment and Plan: Patient's H&H is above baseline but most likely is dehydrated. Continue to monitor. (4) Depression: Code(s): F32.A - Depression, unspecified Status: Acute Assessment and Plan: Continue with Celexa (5) Hypothyroidism: Code(s): E03.9 - Hypothyroidism, unspecified Status: Chronic Assessment and Plan: Check thyroid level and continue with levothyroxine (6) Chronic kidney disease, stage 3: Code(s): N18.30 - Chronic kidney disease, stage 3 unspecified Status: Acute Assessment and Plan: Continue to monitor. Her GFR is 53 which is typically anywhere from 43 to greater than 60. Continue to gently hydrate. (7) Glaucoma: Code(s): H40.9 - Unspecified glaucoma Status: Acute Assessment and Plan: Continue with home eye drops (8) Chronic anticoagulation: Code(s): Z79.01 - buttermaker (current) use of anticoagulants Status: Acute Assessment and Plan: The patient had a history of having a DVT Plan Subjective Date/time seen: 11/06/22 11:42 No new complaints Exam Const: General: cooperative, healthy appearing, comfortable, no acute distress, well developed, awake, Physically active, average body habitus and well nourished Nutritional Appearance: average body habitus and well nourished Orientation/consciousness: oriented to person, oriented to place, oriented to time and patient oriented x3 Limitations: no limitations HENMT: Head: normal to inspection, No palpable skull fracture present, normocephalic and atraumatic Ears: hearing grossly normal bilaterally and external ears normal Face/Nose/Sinus: Normal external nose present and Normal nares present Eyes: General: appearance normal, both eyes and all related structures Alignment and Position: alignment normal Periorbital: periorbital findings normal Eyelids: eyelids normal Conjunctivae: conjunctivae normal and conjunctival abnormality left conjunctival icterus, conjunctival injection and discharge Sclera: sclerae normal Pupils: Equal, round and reactive pupils present EOM: EOMs intact bilaterally Neck: Neck: normal visual inspection, full ROM, no lymphadenopathy, trachea midline and supple Chest: Chest palpation & inspection: normal inspection of the chest Resp: Effort & Inspection: normal respiratory effort Auscultation: clear to auscultation bilaterally Cardio: Palpation: normal PMI Rate: regular rate Rhythm: regular rhythm Heart sounds: S1 normal heart sound present and S2 normal heart sound present Peripheral pulses: Peripheral pulses 2+ throughout GI: Inspection: normal to inspection Auscultation: normal bowel sounds Rectal Exam: deferred : General: Yes no CVA tenderness Back/Spine/Pelvis: Back: no CVA tenderness Cervical Spine: cervical ROM normal Thoracic/Lumbar Spine: thoracic and lumbar spine normal to inspection Pelvis: no pain with anterior-posterior compression Skin: General skin exam: normal color Lesions: no lesions Rashes: no rashes Trauma: no lacerations or abrasions Wounds: no wounds Hair: normal Nails: normal Neuro: General: oriented to person, oriented to place, oriented to time and patient oriented x3 Cranial nerves: Yes Equal, round and reactive pupils present and Yes Normal hearing present Cognition (Neuro)
[2022-11-06 11:50] VITALS: O2SAT 96
[2022-11-06] MEDS: FLUTICASONE/SALMETEROL 115-21 MCG INHALER 1 PUFF 2 PUFF INHALATION (11:50)
[2022-11-06 14:00] VITALS: BP 183/74; PULSE 82; RESP 14; TEMP 36.3; O2SAT 99
[2022-11-06] MEDS: hydrALAZINE HCL 20 MG/ML VIAL 10 MG IV PUSH (16:46)
[2022-11-06 17:58] VITALS: BP 149/68
[2022-11-06] MEDS: ACETAMINOPHEN 325 MG TABLET 650 MG PO (18:16)
[2022-11-06] MEDS: LATANOPROST 0.005% OP SOLN 2.5 ML BTL 1 DROP EACH EYE (20:12)
[2022-11-06 21:00] VITALS: BP 99/48; PULSE 92; RESP 20; TEMP 35.8; O2SAT 94
[2022-11-07] MEDS: ACETAMINOPHEN 325 MG TABLET 650 MG PO ×3 (02:19→14:56)
[2022-11-07 04:47] VITALS: BP 162/66; PULSE 88; RESP 18; TEMP 36.4; O2SAT 97
[2022-11-07] MEDS: hydrALAZINE HCL 20 MG/ML VIAL 10 MG IV PUSH (04:48)
[2022-11-07] MEDS: POLYMYXIN/TRIMETHOPRIM OPHTH 10 ML DROPS 1 DROP EACH EYE ×3 (04:49→12:27)
[2022-11-07] MEDS: LEVOTHYROXINE SODIUM 88 MCG TABLET PO (05:46)
[2022-11-07] MEDS: SENNA/DOCUSATE SODIUM TABLET 2 TAB PO (08:16)
[2022-11-07] MEDS: APIXABAN 5 MG TABLET PO (08:16)
[2022-11-07] MEDS: CALCIUM CARBONATE (TUMS) 500 MG (200 MG ELEMENTAL) PO (08:16)
[2022-11-07] MEDS: ASPIRIN 81 MG ENTERIC TABLET PO (08:16)
[2022-11-07] MEDS: CHOLECALCIFEROL 1,000 UNITS TABLET 1000 UNITS PO (08:16)
[2022-11-07] MEDS: GABAPENTIN 300 MG CAPSULE PO ×2 (08:17→12:27)
[2022-11-07] MEDS: PRIMIDONE 250 MG TABLET PO (08:17)
[2022-11-07] MEDS: MULTIVITAMINS THERAPEUTIC TAB (*BKC) 1 TABLET PO (08:17)
[2022-11-07] MEDS: PANTOPRAZOLE 40 MG TABLET PO (08:17)
[2022-11-07] MEDS: CITALOPRAM HYDROBROMIDE 10 MG TABLET PO (08:17)
[2022-11-07] MEDS: SIMVASTATIN 10 MG TABLET PO (08:17)
[2022-11-07] MEDS: VITAMIN B COMPLEX CAPSULE 1 CAP PO (08:17)
[2022-11-07] MEDS: TOPIRAMATE 25 MG TABLET 50 MG PO (08:18)
[2022-11-07] MEDS: BRIMONIDINE TARTRATE 0.2% OP SOLN 5 ML BTL 1 DROP EACH EYE (08:18)
[2022-11-07] MEDS: TIMOLOL MALEATE 0.5% OP SOLN 5 ML BOTTLE 1 DROP EACH EYE (08:18)
[2022-11-07 08:55] VITALS: BP 158/78
[2022-11-07 09:32] VITALS: O2SAT 98
[2022-11-07] MEDS: FLUTICASONE/SALMETEROL 115-21 MCG INHALER 1 PUFF 2 PUFF INHALATION (09:32)
[2022-11-07 10:10] VITALS: BP 146/62
--- NOTE | 2022-11-07 11:59 | PM.DS ---
DS: Admitting Diagnosis Discharge Date November 07, 2022 Admitting Diagnosis UTI DS: Discharge Diagnosis Discharge Diagnosis (1) Near syncope: Code(s): R55 - Syncope and collapse Status: Acute Assessment and Plan: Could be related to dehydration -could be related to UTI Continue on telemetry Check orthostatic blood pressure (2) Acute UTI: Code(s): N39.0 - Urinary tract infection, site not specified Status: Acute Assessment and Plan: Blood and urine cultures pending Continue with Rocephin Tailor antibiotics to results of cultures and sensitivities. (3) Acute on chronic anemia: Code(s): D64.9 - Anemia, unspecified Status: Acute Assessment and Plan: Patient's H&H is above baseline but most likely is dehydrated. Continue to monitor. (4) Depression: Code(s): F32.A - Depression, unspecified Status: Acute Assessment and Plan: Continue with Celexa (5) Hypothyroidism: Code(s): E03.9 - Hypothyroidism, unspecified Status: Chronic Assessment and Plan: Check thyroid level and continue with levothyroxine (6) Chronic kidney disease, stage 3: Code(s): N18.30 - Chronic kidney disease, stage 3 unspecified Status: Acute Assessment and Plan: Continue to monitor. Her GFR is 53 which is typically anywhere from 43 to greater than 60. Continue to gently hydrate. (7) Glaucoma: Code(s): H40.9 - Unspecified glaucoma Status: Acute Assessment and Plan: Continue with home eye drops (8) Chronic anticoagulation: Code(s): Z79.01 - [facility] (current) use of anticoagulants Status: Acute Assessment and Plan: The patient had a history of having a DVT Plan DS: Summary Hospital Course Hospital Course: Admitted for near syncope found have urinary tract infection. Started on Rocephin and patient has done well the last 48hours in the hospital. Patient can be discharged to complete antibiotics orally. Time Spent with Patient Time attestation: Total time spent providing and/or coordinating discharge services: Exam Const: General: cooperative, healthy appearing, comfortable, no acute distress, well developed, awake, Physically active, average body habitus and well nourished Nutritional Appearance: average body habitus and well nourished Orientation/consciousness: oriented to person, oriented to place, oriented to time and patient oriented x3 Limitations: no limitations HENMT: Head: normal to inspection, No palpable skull fracture present, normocephalic and atraumatic Ears: hearing grossly normal bilaterally and external ears normal Face/Nose/Sinus: Normal external nose present and Normal nares present Eyes: General: appearance normal, both eyes and all related structures Alignment and Position: alignment normal Periorbital: periorbital findings normal Eyelids: eyelids normal Conjunctivae: conjunctivae normal and conjunctival abnormality left conjunctival icterus, conjunctival injection and discharge Sclera: sclerae normal Pupils: Equal, round and reactive pupils present EOM: EOMs intact bilaterally Neck: Neck: normal visual inspection, full ROM, no lymphadenopathy, trachea midline and supple Chest: Chest palpation & inspection: normal inspection of the chest Resp: Effort & Inspection: normal respiratory effort Auscultation: clear to auscultation bilaterally Cardio: Palpation: normal PMI Rate: regular rate Rhythm: regular rhythm Heart sounds: S1 normal heart sound present and S2 normal heart sound present Peripheral pulses: Peripheral pulses 2+ throughout GI: Inspection: normal to inspection Auscultation: normal bowel sounds Rectal Exam: deferred : General: Yes no CVA tenderness Back/Spine/Pelvis: Back: no CVA tenderness Cervical Spine: cervical ROM normal Thoracic/Lumbar Spine: thoracic and lumbar spine normal to inspection Pelvis: no pain with anterior-posteri
[2022-11-07 14:00] VITALS: BP 150/68; PULSE 84; RESP 16; TEMP 36.4; O2SAT 98
[2022-11-07 14:22] LABS: EDCOVIDSCREEN Negative (Negative)
[2022-11-07] MEDS: CEFDINIR 300 MG CAPSULE PO (14:36)
== END 2022-11-07 17:25 ==
LOC: ANHED 14:37 → ANH3MEDSUR 11-06 09:37
PROVIDERS: Admitting Provider Internal Medicine; Emergency Provider Emergency Medicine; Visit Provider Chiropractor
DX: R55 Syncope and collapse (principal); N39.0 Urinary tract infection, site not specified; B95.4 Other streptococcus as the cause of diseases classified elsewhere; D64.9 Anemia, unspecified; F32.A Depression, unspecified; E03.9 Hypothyroidism, unspecified; R53.1 Weakness; N18.30 Chronic kidney disease, stage 3 unspecified; H40.9 Unspecified glaucoma; Z20.822 Contact with and (suspected) exposure to COVID-19; R94.31 Abnormal electrocardiogram [ECG] [EKG]; G47.00 Insomnia, unspecified; R05.9 Cough, unspecified; R41.9 Unspecified symptoms and signs involving cognitive functions and awareness; M19.90 Unspecified osteoarthritis, unspecified site; G83.81 Brown-Sequard syndrome; J98.11 Atelectasis; D32.0 Benign neoplasm of cerebral meninges; G62.89 Other specified polyneuropathies; K21.9 Gastro-esophageal reflux disease without esophagitis; E78.00 Pure hypercholesterolemia, unspecified; Z86.718 Personal history of other venous thrombosis and embolism; Z79.82 Long term (current) use of aspirin; Z66 Do not resuscitate; Z79.1 Long term (current) use of non-steroidal anti-inflammatories (NSAID); Z79.01 Long term (current) use of anticoagulants; Z79.51 Long term (current) use of inhaled steroids; Z79.899 Other long term (current) drug therapy
CPT/HCPCS: 36415; 70450; 71045; 80053; 81001; 83605; 83735; 84484; 85025; 85610; 85730; 87040; 87077; 87086; 87088; 87426; 87636; 93005; 94640; 96361; 96365; 96366; 96375; 96376; 99285; A9270; C9803; G0378; J0360; J0696; J7030

== ENCOUNTER 2024-08-19 11:16 | Emergency (ER) | payer MEDICARE, SELFPAY ==
--- NOTE | ~2024-08-19 | CT_ITS ---
EXAMINATION: CT brain wo con DATE: 08/19/2024 12:24 INDICATION: Head injury. TECHNIQUE: Computed tomography (CT) of the head was performed without intravenous contrast. The mA wa s adjusted according to patient size. Iterative reconstruction technique was employed. The dose-lengt h product was 605.33 mGy-cm. COMPARISON: Head CT 11/05/2022 FINDINGS: There are scattered areas of low attenuation in the cerebral white matter. There is no intr acranial hemorrhage or acute infarction. There is a 13 mm extra-axial mass inferior to the frontal lo bes. The ventricles are normal in size. There is a left frontal scalp hematoma. There is mucosal thic kening in the paranasal sinuses. There is thickening and sclerosis of some of the sinus mcneal, smooth consistent with chronic sinusitis. The mastoid air cells are normal. There are likely changes of ocu lar lens replacement surgeries. IMPRESSION: 1. Stable moderate nonspecific cerebral white matter disease, which likely represents chronic small v essel ischemic disease. 2. Stable 13 mm extra-axial mass inferior to the frontal lobes, consistent with a meningioma. 3. Chronic sinusitis. Reviewed, dictated and finalized at location A. [facility] [facility] IMPRESSION: 1. Stable moderate nonspecific cerebral white matter disease, which likely repr esents chronic small vessel ischemic disease. 2. Stable 13 mm extra-axial mass inferior to the frontal lobes, consistent with a meningioma. 3. Chronic sinusitis.
[2024-08-19 11:17] VITALS: BP 130/65; PULSE 78; RESP 17; TEMP 36.6; O2SAT 97
--- NOTE | 2024-08-19 11:48 | PC.NURSE ---
Pt. is A&Ox4. Arrives with strange in place from alf. Daughter at bedside, requested pt. be tested for a UTI d/t recurrent UTI's. Pt. does not want strange changed d/t pain when it does get changed out. This RN called and spoke with Jannette at [facility]. Jannette does not know when strange was last changed. Meredith was last treated for a UTI from 07/19-07/22 with macrobid and rocephin on 07/23.
[2024-08-19] MEDS: TETANUS,DIPHTHERIA,AC PERTUSSIS ADULT (0.5 ML) BOOSTRIX IM (12:35)
--- NOTE | 2024-08-19 12:46 | PC.NURSE ---
Daughter (POA) requesting chronic strange to be changed out and tested for a UTI. Pt. is not confused. Urine in bag is yellow and appears clear. Dr. Leahy notified of pt. daughter's request. Per , strange can be changed out if daughter would like but there is no indication to test for a UA. Daughter updated and verbalized understanding. Daughter changed her mind and is no longer requesting that strange be exchanged.
[2024-08-19 12:53] LABS: Basophils Percent Auto 0.3 % (0.2-1.2); Eosinophils Absolute Auto 0.3 K/mm3 (0-0.3); Eosinophils Percent Auto 2.8 % (0-4.4); Hematocrit 22.3 % (37.0-47.0); Immature Granulocyte Absolute 0.06 K/mm3 (0.00-0.031); Immature Granulocyte Percent A 0.5 % (0-0.5); Lymphocytes Absolute Auto 1.26 K/mm3 (0.9-3.2); Lymphocytes Percent Auto 10.9 % (18.3-44.2); Mean Corpuscular HGB Conc 31.4 g/dl (32-36); Mean Corpuscular Hemoglobin 35.7 pg (26-34); Mean Corpuscular Volume 113.8 fl (80-100); Monocytes Absolute Auto 1.2 K/mm3 (0.1-0.6); Monocytes Percent Auto 10.5 % (2.6-8.5); Neutrophils Absolute Auto 8.7 K/mm3 (1.3-6.7); Platelet Count Result 338 k/mm3 (150-375); Red Blood Count 1.96 M/mm3 (4.2-5.4); Red Cell Distribution Width 13.9 % (11.5-14.5); White Blood Count 11.6 K/mm3 (4.5-10.0)
[2024-08-19 13:06] LABS: INR 1.2; Partial Thromboplastin Time 32.1 Seconds (22.3-36.8)
[2024-08-19 13:14] LABS: Alanine Aminotransferase 11 U/L (6-35); Albumin Level 3.7 g/dL (3.5-5.1); Alkaline Phosphatase 62 U/L (38-126); Anion Gap 3 mmol/L (4-12); Aspartate Amino Transferase 21 U/L (14-36); Bilirubin,Total 0.3 mg/dL (0.2-1.3); Blood Urea Nitrogen 22 mg/dL (7-17); Calcium 9.2 mg/dL (8.4-10.2); Carbon Dioxide 29 mmol/L (22-30); Chloride 107 mmol/L (98-107); Estimated CRCL calculation 40 ml/min; Estimated Glomerular Filt Rate > 60; Glucose 87 mg/dL (65-110); Potassium 4.4 mmol/L (3.4-5.0); Sodium 139 mmol/L (137-145)
[2024-08-19 13:18] LABS: Macrocytosis 1+ (NORMAL); Platelet Estimate Adequate (Adequate); Schistocytes None Seen
[2024-08-19 15:58] VITALS: BP 157/66; PULSE 83; RESP 16; O2SAT 99
--- NOTE | 2024-08-19 16:02 | PC.NURSE ---
Report given to Merry at [facility]. All questions answered. [facility] for pt.
--- NOTE | 2024-08-19 16:29 | PC.NURSE ---
Pt. offered food and drink but declined.
--- NOTE | 2024-08-19 20:11 | ED_ITS ---
HPI - Fall General Chief Complaint: Fall Stated Complaint: fall Time Seen by Provider: 08/19/24 12:00 History of Present Illness HPI Narrative: 89-year-old female with a past medical history including CKD, chronic anemia, history of deep venous thrombosis on anticoagulation, meningioma. Today patient fell forward out of her wheelchair while trying to sit forward. She fell and hit her head but did not lose consciousness. She does take Eliquis. Patient is acting appropriately, not in any acute distress, not acting altered. She does have a small laceration to her forehead with controlled bleeding. Her tetanus is not up-to-date. Patient states that she remembers exactly what happened and she was trying to lean forward and sit out of her chair when she accidentally fell out of it. She required some assistance to get back in and they sent her to the ER for evaluation. Family is present at bedside states this is not the 1st time she has fallen. She has otherwise been acting appropriately. Related Data Home Medications ?Medication ?Instructions ?Recorded ?Confirmed ?Last Taken ?Type multivitamin (Multiple Vitamins 1 tablet PO DAILY 08/08/19 08/14/24 Unknown History tablet) vitamin B complex 1 cap PO DAILY 08/08/19 08/14/24 Unknown History aspirin 81 mg tablet,delayed 81 mg PO DAILY 08/14/19 08/14/24 Unknown History release (Adult Low Dose Aspirin) acetaminophen 650 mg tablet 650 mg PO Q6H PRN Pain 09/18/22 08/14/24 Unknown History apixaban 5 mg tablet (Eliquis) 5 mg PO BID 09/18/22 08/14/24 Unknown History brimonidine 0.2 % eye drops 1 drp EACH EYE BID Glaucoma 09/18/22 08/14/24 Unknown History citalopram 10 mg tablet 10 mg PO DAILY 09/18/22 08/14/24 Unknown History fluticasone furoate 100 1 inh inhalation DAILY Wheezing 09/18/22 08/14/24 Unknown History mcg-vilanterol 25 mcg/dose inhalation powder (Breo Ellipta) gabapentin 300 mg capsule 300 mg PO TID Neuropathy 09/18/22 08/14/24 Unknown History primidone 250 mg tablet 250 mg PO DAILY 09/18/22 08/14/24 Unknown History simvastatin 10 mg tablet 10 mg PO DAILY 09/18/22 08/14/24 Unknown History calcium carbonate (Tums) 600 mg PO DAILY 09/19/22 08/14/24 Unknown History cholecalciferol (vitamin D3) 25 25 mcg PO DAILY 09/19/22 08/14/24 Unknown History mcg (1,000 unit) tablet guaifenesin 100 mg/5 mL oral liquid 100 mg PO Q6H PRN Cough 09/19/22 08/14/24 Unknown History polyethylene glycol 3350 17 gram 17 g PO DAILY PRN Constipation 09/19/22 08/14/24 Unknown History oral powder packet sennosides 8.6 mg-docusate sodium 2 tab-cap PO BID 09/19/22 08/14/24 Unknown History 50 mg tablet (Senna with Docusate Sodium) ipratropium-albuterol 3 ml inhalation Q4H PRN Wheezing 11/05/22 08/14/24 Unknown History levothyroxine 88 mcg tablet 88 mcg PO DAILY Hypothyroidism 11/05/22 08/14/24 Unknown History melatonin 1 mg tablet 1 mg PO HS PRN Insomnia 11/05/22 08/14/24 Unknown History topiramate 50 mg tablet (Topamax) 50 mg PO BID Headache 11/05/22 08/14/24 Unknown History Allergies Allergy/AdvReac Type Severity Reaction Status Date / Time gatifloxacin Allergy Severe SWELLING Verified 08/19/24 11:28 Sulfa (Sulfonamide Allergy Mild Unknown Verified 08/19/24 11:28 Antibiotics) brimonidine Allergy Unknown Verified 08/19/24 11:28 fexofenadine AdvReac Mild COULDN'T Verified 08/19/24 11:28 SLEEP Review of Systems 2 Review of Systems: As reviewed above in HPI [facility] Past Medical History Medical History Chronic anticoagulation Megaloblastic anemia Normal B12 and folate April 2021 Chronic kidney disease, stage 3 Gastric ulcer Gastroesophageal reflux disease Su's esophagus Glaucoma Arthritis History of deep venous thrombosis Anxiety Urinary incontinence Axonal polyneuropathy Brown-Sequard syndrome Hypothyroidism Meningioma Pure hypercholesterolemia Tremor Surgical History Surgical History History of appendectomy History of hysterectomy for benign disease History of repair of hiatal hernia History of arthroplasty of left knee (10/05/16) History of arthroplasty of right knee (12/16/15) History of colonoscopy with polypectomy History of cataract extraction with lens replacement History of fusion of cervical spine Family History Family History Mother Coronary artery disease Cerebrovascular accident Patient's father is Father Patient's father is Social History Social History Social History: She is from [facility] [place] . Her of nearly 68 years past in March 2021. Lifelong nonsmoker. She drinks 1 glass of wine a night. No illicit substance use. She has 2 daughters who she designates as her surrogate decision makers. Code status: DNR/DNI per patient request Code status DNR DNI Smoking status: Never smoker Alcohol intake: never Substance use: never Substance use type: does not use Lack of Transportation: No Lack of Food: Never True Current Housing: I Have Housing Concerned About Future Housing: No Difficulty Paying Gas/Electric Bills: No Difficulty Paying for Meds: No Currently Unemployed: No Education: Don't Know Difficulty w/ Childcare or Family Care: No Spiritual care concerns: No Exam 2 Narrative: GENERAL: Frail appearing but otherwise not any acute distress, awake and answering questions HEAD: Normocephalic, left-sided frontal scalp as a slight avulsion of the skin with a 2.0 cm linear skin avulsion/laceration without active bleeding or significant depth EYES: [PERRLA and EOMI.] ENT: Nares clear, no rhinorrhea or epistaxis. Mucous membranes moist. NECK: Supple. CHEST: [Clear to auscultation. No respiratory distress.] HEART: [Regular rate and rhythm]. No murmur heard. [Normal peripheral pulses.] ABDOMEN: [Soft, nondistended], [nontender], [No rigidity or guarding] indwelling catheter EXTREMITIES: Normal range of motion. [No edema.] SKIN: Warm, dry, no rash. NEURO: [No focal deficits]. Alert and oriented [x3.] PSYCH: [Normal mood and affect.] Course Vital Signs Vital signs: Vital Signs Temperature 36.6 C 08/19/24 11:17 Pulse Rate 78 08/19/24 11:17 Respiratory Rate 17 08/19/24 11:17 Blood Pressure 130/65 08/19/24 11:17 Pulse Oximetry 97 08/19/24 11:17 Oxygen Delivery Room Air 08/19/24 11:17 Temperature 36.6 C 08/19/24 11:17 Pulse Rate 83 08/19/24 15:58 Respiratory Rate 16 08/19/24 15:58 Blood Pressure 157/66 H 08/19/24 15:58 Pulse Oximetry 99 08/19/24 15:58 Oxygen Delivery Room Air 08/19/24 11:17 Procedures Laceration Laceration 1: Date: 08/19/24 Time: : Site: scalp Side (If applicable): left Size (cm): 2 Description: linear and flap Depth: simple, single layer Local Anesthetic: none Pre-repair: wound explored, irrigated and deep structures intact ====== Skin Level ====== Skin layer closed with: dermabond and steri strips Technique: simple, interrupted ====== Subcutaneous Layer ====== ====== Muscle Layer ====== ====== Tendon Layer ====== Dressing: Sterile dressing applied over top MDM - Fall MDM Narrative Medical decision making narrative: 89-year-old female presenting from her longterm facility after a witnessed fall out of her wheelchair. She leaned forward and fell from chair height and struck her head against the ground. Ground was linoleum, she did not lose consciousness and is taking Eliquis. She has a small laceration that is just an avulsion of the skin on the top of her left frontal scalp. No deep structure involvement. No other obvious injuries. She is acting appropriately, no nausea or vomiting. Given her age and risk factors blood work was obtained as well as a CT head given her Eliquis use. Wound was repaired primarily after cleaning and irrigation. Dermabond and Steri-Strips applied with good approximation and hemostasis achieved. Details above. Laboratory studies show a hemoglobin of 7.0 with macrocytosis. She has a history of macrocytic anemia but no recent laboratory studies nor EeMR the last time she had a hemoglobin of 1 year prior which was slightly higher to 10.0. Patient herself denies any active bleeding, no melena or dark stools, no vomiting. Family is not sure how acute this could be, but they were made aware of it. Patient is presently asymptomatic and not requiring any blood transfusions. Will monitor on outpatient basis. Electrolytes within normal limits, creatinine normal, GFR normal, glucose normal, unremarkable LFTs. CT of the head shows stable nonspecific cerebral white matter disease that is chronic. Stable meningioma, chronic sinusitis. No acute intracranial process such as a bleed or hematoma. Patient's wound was repaired, remained asymptomatic while here in the emergency department and had normal vital signs on repeat examinations. Patient and family CT comfortable with her going home at this time and we did provide documentation and follow-up instructions for her PCP in regards to her macrocytic anemia. Patient requires ambulance transfer back to her facility which was arranged. Medical Records Attestation: I reviewed the patient's medical records. Lab Data Attestation: I reviewed the patient's lab results. 08/19/24 12:31 08/19/24 12:30 Labs: Lab Results 08/19/24 08/19/24 Range/Units 12:30 12:31 WBC 11.6 H (4.5-10.0) K/mm3 RBC 1.96 L (4.2-5.4) M/mm3 Hgb 7.0 L (12.0-15.0) g/dL Hct 22.3 L (37.0-47.0) % MCV 113.8 H (80-100) fl MCH 35.7 H (26-34) pg MCHC 31.4 L (32-36) g/dl RDW 13.9 (11.5-14.5) % Plt Count 338 D (150-375) k/mm3 MPV 11.0 H (7.4-10.4) fl Immature Gran % (Auto) 0.5 (0-0.5) % Neut % (Auto) 75.0 H (45.5-73.1) % Lymph % (Auto) 10.9 L (18.3-44.2) % [place] % (Auto) 10.5 H (2.6-8.5) % Eos % (Auto) 2.8 (0-4.4) % Baso % (Auto) 0.3 (0.2-1.2) % Lymph # (Auto) 1.26 (0.9-3.2) K/mm3 [place] # (Auto) 1.2 H (0.1-0.6) K/mm3 Eos # (Auto) 0.3 (0-0.3) K/mm3 Baso # (Auto) 0.0 (0.0-0.1) K/mm3 Abs Immat Gran (auto) 0.06 H (0.00-0.031) K/mm3 Absolute Neuts (auto) 8.7 H (1.3-6.7) K/mm3 Absolute Nucleated RBC 0.000 (0.0-0.012) K/mm3 Nucleated RBC % 0.0 (0.0-0.2) % Platelet Estimate Adequate (Adequate) Macrocytosis 1+ (NORMAL) Schistocytes None seen PT 15.0 H (11.1-14.7) Seconds INR 1.2 APTT 32.1 (22.3-36.8) Seconds Sodium 139 (137-145) mmol/L Potassium 4.4 (3.4-5.0) mmol/L Chloride 107 (98-107) mmol/L Carbon Dioxide 29 (22-30) mmol/L Anion Gap 3 L (4-12) mmol/L BUN 22 H (7-17) mg/dL Creatinine 0.80 (0.7-1.0) mg/dL Estim Creat Clear Calc 40 ml/min Estimated GFR > 60 (59 - ) Glucose 87 (65-110) mg/dL Calcium 9.2 (8.4-10.2) mg/dL Total Bilirubin 0.3 (0.2-1.3) mg/dL AST 21 (14-36) U/L ALT 11 (6-35) U/L Alkaline Phosphatase 62 (38-126) U/L Total Protein 7.0 (6.3-8.2) g/dL Albumin 3.7 (3.5-5.1) g/dL Imaging Data Attestation: I personally reviewed and interpreted this imaging study as follows: My impression: Impressions Head CT 08/19/24 12:26 IMPRESSION: 1. Stable moderate nonspecific cerebral white matter disease, which likely represents chronic small vessel ischemic disease. 2. Stable 13 mm extra-axial mass inferior to the frontal lobes, consistent with a meningioma. 3. Chronic sinusitis. Discharge Plan Discharge Clinical Impression: CHI (closed head injury), Laceration of forehead, Anemia, macrocytic Patient Disposition: Home, Self-Care Condition: Stable Instructions: Antibiotic Form, Laceration (ED), Contusion in Adults (ED), Skin Adhesive Care (ED) Additional Instructions: Villanue[place]. You laceration with skin glue and Steri-Strips. Keep the area covered and dry for the next 24 hours and then the area will flake off on its own in the next several days. Your hemoglobin level is low but has been low before. Follow-up with your regular primary care provider to get repeat studies about this, based on her labs this is likely nutritional anemia rather than a blood loss anemia. Return with any new or worsening concerns at any time. Patient Language: Yakut Prescriptions: No Action multivitamin [Multiple Vitamins] Tablet 1 tablet PO DAILY vitamin B complex Capsule 1 cap PO DAILY aspirin [Adult Low Dose Aspirin] 81 mg tablet,delayed release (DR/EC) 81 mg PO DAILY albuterol sulfate 90 mcg/actuation HFA aerosol inhaler 2 puff inhalation Q4-6H PRN (Reason: shortness of breath or wheezing) Qty: 8.5 0RF gabapentin 300 mg capsule 300 mg PO TID fluticasone furoate-vilanterol [Breo Ellipta] 100-25 mcg/dose blister with device 1 inh INHALATION DAILY citalopram 10 mg tablet 10 mg PO DAILY brimonidine 0.2 % drops 1 drp EACH EYE BID Eliquis 5 mg tablet 5 mg PO BID simvastatin 10 mg tablet 10 mg PO DAILY acetaminophen 650 mg Tablet 650 mg PO Q6H PRN (Reason: Pain) primidone 250 mg tablet 250 mg PO DAILY calcium carbonate [Tums] 300 mg (750 mg) Tablet,Chewable 600 mg PO DAILY Rx Instructions: Give one tablet by mouth one time a day guaifenesin 100 mg/5 mL Liquid 100 mg PO Q6H PRN (Reason: Cough) cholecalciferol (vitamin D3) 25 mcg (1,000 unit) Tablet 25 mcg PO DAILY polyethylene glycol 3350 17 gram Powder In Packet 17 g PO DAILY PRN (Reason: Constipation) sennosides-docusate sodium [Senna with Docusate Sodium] 8.6-50 mg Tablet 2 tab-cap PO BID melatonin 1 mg Tablet 1 mg PO HS PRN (Reason: Insomnia) topiramate [Topamax] 50 mg Tablet 50 mg PO BID ipratropium-albuterol inhaler 3 ml inhalation Q4H PRN (Reason: Wheezing) levothyroxine 88 mcg tablet 88 mcg PO DAILY cefdinir 300 mg capsule 300 mg PO Q12H Qty: 10 0RF omeprazole 20 mg capsule,delayed release(DR/EC) 20 mg PO DAILY Qty: 90 1RF latanoprost 0.005 % drops 1 drp EACH EYE HS Qty: 2.5 0RF timolol 0.5 % drops 1 drp EACH EYE DAILY Qty: 5 0RF Follow-up/Referrals: UNKNOWN,DOCTOR [Primary Care Provider] - Time of Disposition: 15:27
== END 2024-08-19 16:33 | disposition home or self-care (01) ==
PROVIDERS: Emergency Provider Student in an Organized Health Care Education/Training Program
DX: S09.90XA Unspecified injury of head, initial encounter (principal); S01.81XA Laceration without foreign body of other part of head, initial encounter; D53.9 Nutritional anemia, unspecified; W05.0XXA Fall from non-moving wheelchair, initial encounter; N18.30 Chronic kidney disease, stage 3 unspecified; G83.81 Brown-Sequard syndrome; E03.9 Hypothyroidism, unspecified; E78.00 Pure hypercholesterolemia, unspecified; Z66 Do not resuscitate; Z79.82 Long term (current) use of aspirin; Z79.51 Long term (current) use of inhaled steroids; Z79.01 Long term (current) use of anticoagulants; Z23 Encounter for immunization
CPT/HCPCS: 12001; 36415; 70450; 80053; 85025; 85610; 85730; 90471; 90715; 99284